=== PATIENT | male | born 1950 | race Caucasian/White ===

== ENCOUNTER → 2018-04-08 08:33 | Outpatient (CLI) | payer MEDICARE, OTHER, SELFPAY ==
[2018-04-08 09:27] LABS: Add Manual Diff / Slide Review YES; Hematocrit 31.2 % (41-53); Hemoglobin 10.3 g/dL (13.5-17.5); Mean Corpuscular HGB Conc 33.1 % (30-36); Mean Corpuscular Hemoglobin 27.4 PG (26-34); Mean Corpuscular Volume 82.6 fL (80-100); Platelet Count 122 X10^3/uL (150-400); Red Blood Cell Count 3.77 X10^6/uL (4.5-5.9); Red Cell Distribution Width 18.9 % (11.6-14.8); White Blood Cell Count 20.3 X10^3/uL (4.5-11.0)
[2018-04-08 09:47] LABS: Neutrophils Absolute Manual 14007 /uL (3000-5900); Total Cells Counted 100
[2018-04-08 09:48] LABS: Anisocytosis 2+; Tear Drop Cells 1+
== END ==
PROVIDERS: Family Provider Family Medicine; PCP Family Medicine; Visit Provider Internal Medicine Hematology & Oncology
DX: D47.1 Chronic myeloproliferative disease (principal)
CPT/HCPCS: 36415; 85025

== ENCOUNTER → 2018-04-23 08:28 | Outpatient (CLI) | payer MEDICARE, OTHER, SELFPAY ==
[2018-04-23 10:01] LABS: Add Manual Diff / Slide Review YES; Hematocrit 33.9 % (41-53); Hemoglobin 11.4 g/dL (13.5-17.5); Mean Corpuscular HGB Conc 33.6 % (30-36); Mean Corpuscular Hemoglobin 27.4 PG (26-34); Mean Corpuscular Volume 81.7 fL (80-100); Platelet Count 130 X10^3/uL (150-400); Red Blood Cell Count 4.15 X10^6/uL (4.5-5.9); Red Cell Distribution Width 19.8 % (11.6-14.8); White Blood Cell Count 20.5 X10^3/uL (4.5-11.0)
[2018-04-23 13:03] LABS: Neutrophils Absolute Manual 13325 /uL (3000-5900); Total Cells Counted 100
[2018-04-23 13:05] LABS: Anisocytosis 2+
[2018-04-23 13:06] LABS: Tear Drop Cells 1+
== END ==
PROVIDERS: PCP Family Medicine; Visit Provider Internal Medicine Hematology & Oncology
DX: D72.829 Elevated white blood cell count, unspecified (principal)
CPT/HCPCS: 36415; 85025

== ENCOUNTER → 2018-05-20 12:29 | Outpatient (CLI) | payer MEDICARE, OTHER, SELFPAY ==
--- NOTE | 2018-05-20 12:31 | DI.US.S_ITS ---
PROCEDURE: US ABDOMEN LIMITED INDICATIONS: MYELOPROLIFERATIVE DISEASE TECHNIQUE: Real-time focused scanning was performed of the abdomen, with image documentation. COMPARISON: [facility], US, ABDOMEN LIMITED, 12/03/2017, 9:45. FINDINGS: Spleen is enlarged measuring 18.4 cm in length which has increased in size compared to prior examination. Volume is 1968 cc IMPRESSION: Increasing splenomegaly. Dictated by: Tobias ELIAS Interpreted: Osbaldo Leon MD on 05/20/2018 at 16:06 Approved by: Osbaldo Leon M.D. on 05/20/2018 at 17:01
== END ==
PROVIDERS: Family Provider Family Medicine; PCP Family Medicine; Visit Provider Internal Medicine Hematology & Oncology
DX: R16.1 Splenomegaly, not elsewhere classified (principal)
CPT/HCPCS: 76705

== ENCOUNTER → 2018-06-04 08:28 | Outpatient (CLI) | payer MEDICARE, OTHER, SELFPAY ==
[2018-06-04 09:04] LABS: Hematocrit 33.9 % (41-53); Hemoglobin 11.3 g/dL (13.5-17.5); Mean Corpuscular HGB Conc 33.4 % (30-36); Mean Corpuscular Hemoglobin 27.8 PG (26-34); Mean Corpuscular Volume 83.3 fL (80-100); Platelet Count 91 X10^3/uL (150-400); Red Blood Cell Count 4.08 X10^6/uL (4.5-5.9); Red Cell Distribution Width 20.3 % (11.6-14.8); White Blood Cell Count 18.2 X10^3/uL (4.5-11.0)
[2018-06-04 09:07] LABS: Add Manual Diff / Slide Review YES
[2018-06-04 09:29] LABS: Alanine Aminotransferase 27 IU/L (21-72); Albumin 4.5 g/dL (3.5-5.0); Albumin Globulin Ratio 1.3 (1.0-2.8); Alkaline Phosphatase 54 U/L (38-126); Aspartate Aminotransferase 32 IU/L (17-59); BUN Creatinine Ratio 11.9 (6-22); Bilirubin Total 0.7 mg/dL (0.2-1.3); Blood Urea Nitrogen 19 mg/dL (9-20); Calcium 9.6 mg/dL (8.4-10.2); Carbon Dioxide 28 mmol/L (22-32); Chloride 101 mmol/L (98-107); Estimated Glomerular Filt Rate 43.2 mL/min (>60); Globulin 3.4 g/dL (1.7-4.1); Glucose 85 mg/dL (80-110); HEMOLYSIS < 15 (0-50); Lactate Dehydrogenase 1203 U/L (313-618); Potassium 4.4 mmol/L (3.4-5.1); Sodium 141 mmol/L (137-145); Total Protein 7.9 g/dL (6.3-8.2)
[2018-06-04 09:43] LABS: Neutrophils Absolute Manual 12558 /uL (3000-5900); Total Cells Counted 100
[2018-06-04 09:45] LABS: Anisocytosis 2+; Tear Drop Cells 1+
== END ==
PROVIDERS: Family Provider Family Medicine; PCP Family Medicine; Visit Provider Internal Medicine Hematology & Oncology
DX: D47.1 Chronic myeloproliferative disease (principal); R79.89 Other specified abnormal findings of blood chemistry
CPT/HCPCS: 36415; 80053; 83615; 85025

== ENCOUNTER → 2018-07-25 08:35 | Outpatient (CLI) | payer MEDICARE, OTHER, SELFPAY ==
[2018-07-25 09:22] LABS: Add Manual Diff / Slide Review YES; Hematocrit 32.9 % (41-53); Mean Corpuscular HGB Conc 33.4 % (30-36); Mean Corpuscular Hemoglobin 28.3 PG (26-34); Mean Corpuscular Volume 84.7 fL (80-100); Platelet Count 84 X10^3/uL (150-400); Red Blood Cell Count 3.89 X10^6/uL (4.5-5.9); Red Cell Distribution Width 19.3 % (11.6-14.8); White Blood Cell Count 22.6 X10^3/uL (4.5-11.0)
[2018-07-25 09:31] LABS: Alanine Aminotransferase 28 IU/L (21-72); Albumin 4.3 g/dL (3.5-5.0); Albumin Globulin Ratio 1.2 (1.0-2.8); Alkaline Phosphatase 58 U/L (38-126); Aspartate Aminotransferase 31 IU/L (17-59); BUN Creatinine Ratio 13.1 (6-22); Bilirubin Total 0.8 mg/dL (0.2-1.3); Blood Urea Nitrogen 21 mg/dL (9-20); Calcium 9.1 mg/dL (8.4-10.2); Carbon Dioxide 28 mmol/L (22-32); Chloride 104 mmol/L (98-107); Estimated Glomerular Filt Rate 43.2 mL/min (>60); Globulin 3.6 g/dL (1.7-4.1); Glucose 108 mg/dL (80-110); HEMOLYSIS < 15 (0-50); Potassium 4.4 mmol/L (3.4-5.1); Sodium 143 mmol/L (137-145); Total Protein 7.9 g/dL (6.3-8.2)
[2018-07-25 12:29] LABS: Neutrophils Absolute Manual 15142 /uL (3000-5900); Total Cells Counted 100
[2018-07-25 12:32] LABS: Anisocytosis 1+
--- NOTE | 2018-07-25 13:43 | PC.NURSE ---
Labs reviewed, platelets down from over a month 91 in May and 84 today. Creatinine stable @ 1.60
== END ==
PROVIDERS: Family Provider Family Medicine; PCP Family Medicine; Visit Provider Internal Medicine Hematology & Oncology
DX: D47.1 Chronic myeloproliferative disease (principal); R79.89 Other specified abnormal findings of blood chemistry
CPT/HCPCS: 36415; 80053; 85025

== ENCOUNTER → 2018-08-19 08:27 | Outpatient (CLI) | payer MEDICARE, OTHER, SELFPAY ==
[2018-08-19 09:12] LABS: Hematocrit 32.3 % (41-53); Hemoglobin 10.9 g/dL (13.5-17.5); Mean Corpuscular HGB Conc 33.6 % (30-36); Mean Corpuscular Hemoglobin 28.3 PG (26-34); Mean Corpuscular Volume 84.3 fL (80-100); Platelet Count 68 X10^3/uL (150-400); Red Blood Cell Count 3.83 X10^6/uL (4.5-5.9); Red Cell Distribution Width 19.6 % (11.6-14.8); White Blood Cell Count 18.6 X10^3/uL (4.5-11.0)
[2018-08-19 09:14] LABS: Add Manual Diff / Slide Review YES
[2018-08-19 09:44] LABS: Alanine Aminotransferase 38 IU/L (21-72); Albumin 4.5 g/dL (3.5-5.0); Albumin Globulin Ratio 1.5 (1.0-2.8); Alkaline Phosphatase 49 U/L (38-126); Aspartate Aminotransferase 36 IU/L (17-59); Bilirubin Total 0.8 mg/dL (0.2-1.3); Blood Urea Nitrogen 21 mg/dL (9-20); Calcium 9.3 mg/dL (8.4-10.2); Carbon Dioxide 29 mmol/L (22-32); Chloride 102 mmol/L (98-107); Estimated Glomerular Filt Rate 46.4 mL/min (>60); Globulin 3.1 g/dL (1.7-4.1); Glucose 76 mg/dL (80-110); HEMOLYSIS < 15 (0-50); Potassium 4.7 mmol/L (3.4-5.1); Sodium 141 mmol/L (137-145); Total Protein 7.6 g/dL (6.3-8.2)
[2018-08-19 10:20] LABS: Anisocytosis 1+; Neutrophils Absolute Manual 10974 /uL (3000-5900); Polychromasia 1+; Total Cells Counted 100
== END ==
PROVIDERS: Family Provider Family Medicine; PCP Family Medicine; Visit Provider Internal Medicine Hematology & Oncology
DX: D47.1 Chronic myeloproliferative disease (principal); R79.89 Other specified abnormal findings of blood chemistry
CPT/HCPCS: 36415; 80053; 85025

== ENCOUNTER → 2018-09-12 08:32 | Outpatient (CLI) | payer MEDICARE, OTHER, SELFPAY ==
[2018-09-12 10:20] LABS: Hematocrit 34.6 % (41-53); Hemoglobin 11.4 g/dL (13.5-17.5); Mean Corpuscular Hemoglobin 28.5 PG (26-34); Mean Corpuscular Volume 86.3 fL (80-100); Platelet Count 76 X10^3/uL (150-400); Red Blood Cell Count 4.01 X10^6/uL (4.5-5.9); Red Cell Distribution Width 19.5 % (11.6-14.8); White Blood Cell Count 23.5 X10^3/uL (4.5-11.0)
[2018-09-12 10:22] LABS: Add Manual Diff / Slide Review YES
[2018-09-12 10:28] LABS: Alanine Aminotransferase 35 IU/L (21-72); Albumin 4.7 g/dL (3.5-5.0); Albumin Globulin Ratio 1.3 (1.0-2.8); Alkaline Phosphatase 63 U/L (38-126); Aspartate Aminotransferase 38 IU/L (17-59); BUN Creatinine Ratio 11.3 (6-22); Bilirubin Total 0.7 mg/dL (0.2-1.3); Blood Urea Nitrogen 17 mg/dL (9-20); Calcium 9.4 mg/dL (8.4-10.2); Carbon Dioxide 29 mmol/L (22-32); Chloride 101 mmol/L (98-107); Estimated Glomerular Filt Rate 46.4 mL/min (>60); Globulin 3.6 g/dL (1.7-4.1); Glucose 111 mg/dL (80-110); HEMOLYSIS < 15 (0-50); Lactate Dehydrogenase 1430 U/L (313-618); Potassium 4.3 mmol/L (3.4-5.1); Sodium 143 mmol/L (137-145); Total Protein 8.3 g/dL (6.3-8.2)
[2018-09-12 10:56] LABS: Neutrophils Absolute Manual 16215 /uL (3000-5900); Total Cells Counted 100
[2018-09-12 10:57] LABS: RBC Morphology Normal Morphology
== END ==
PROVIDERS: Family Provider Family Medicine; PCP Family Medicine; Visit Provider Internal Medicine Hematology & Oncology
DX: D47.1 Chronic myeloproliferative disease (principal)
CPT/HCPCS: 80053; 83615; 85025

== ENCOUNTER → 2018-10-07 10:48 | Outpatient (CLI) | payer MEDICARE, OTHER, SELFPAY ==
--- NOTE | 2018-10-07 10:50 | DI.US.S_ITS ---
PROCEDURE: US ABDOMEN LIMITED INDICATIONS: Chronic myeloproliferative disease TECHNIQUE: Real-time focused scanning was performed of the abdomen, with image documentation. COMPARISON: [facility], [place], US ABDOMEN LIMITED, 05/20/2018, 13:12. FINDINGS: Limited sonographic images demonstrate the spleen to measure 19.9 cm (2012 cc) This is compared to 18.4 cm (volume 1968 cc) on 05/20/18. No focal lesions. IMPRESSION: Persistent splenomegaly, minimally increased compared to prior exam. Dictated by: Ghislaine Montoya M.D. on 10/07/2018 at 12:05 Approved by: Ghislaine Montoya M.D. on 10/07/2018 at 12:08
[2018-10-07 11:55] LABS: Add Manual Diff / Slide Review YES; Hematocrit 33.1 % (41-53); Hemoglobin 10.7 g/dL (13.5-17.5); Mean Corpuscular HGB Conc 32.5 % (30-36); Mean Corpuscular Hemoglobin 27.6 PG (26-34); Mean Corpuscular Volume 85.1 fL (80-100); Platelet Count 87 X10^3/uL (150-400); Red Blood Cell Count 3.88 X10^6/uL (4.5-5.9); Red Cell Distribution Width 19.2 % (11.6-14.8); White Blood Cell Count 25.8 X10^3/uL (4.5-11.0)
[2018-10-07 12:16] LABS: Neutrophils Absolute Manual 13158 /uL (3000-5900); Total Cells Counted 100
[2018-10-07 12:17] LABS: Anisocytosis 2+
[2018-10-07 12:42] LABS: Cholesterol 153 mg/dL (140-199); HDL Cholesterol 37 mg/dL (40-60); LDL Cholesterol Calculated 78 mg/dL (<100); Triglycerides 189 mg/dL (35-150)
[2018-10-07 13:05] LABS: Thyroid Stimulating Hormone 9.79 uIU/mL (0.47-4.68)
[2018-10-07 19:19] LABS: Prostate Specific Antigen Scrn 0.399 ng/mL (0.1-4.0)
[2018-10-07 19:39] LABS: Alanine Aminotransferase 30 IU/L (21-72); Albumin 4.6 g/dL (3.5-5.0); Albumin Globulin Ratio 1.3 (1.0-2.8); Alkaline Phosphatase 63 U/L (38-126); Aspartate Aminotransferase 36 IU/L (17-59); BUN Creatinine Ratio 14.7 (6-22); Bilirubin Total 0.8 mg/dL (0.2-1.3); Blood Urea Nitrogen 22 mg/dL (9-20); Calcium 9.5 mg/dL (8.4-10.2); Carbon Dioxide 25 mmol/L (22-32); Chloride 102 mmol/L (98-107); Estimated Glomerular Filt Rate 46.4 mL/min (>60); Globulin 3.5 g/dL (1.7-4.1); Glucose 96 mg/dL (80-110); HEMOLYSIS < 15 (0-50); Lactate Dehydrogenase 1825 U/L (313-618); Potassium 5.1 mmol/L (3.4-5.1); Sodium 142 mmol/L (137-145); Total Protein 8.1 g/dL (6.3-8.2)
== END ==
PROVIDERS: Family Provider Family Medicine; PCP Family Medicine; Visit Provider Internal Medicine Hematology & Oncology
DX: D47.1 Chronic myeloproliferative disease (principal); E03.9 Hypothyroidism, unspecified; R16.1 Splenomegaly, not elsewhere classified; Z12.5 Encounter for screening for malignant neoplasm of prostate
CPT/HCPCS: 36415; 76705; 80053; 80061; 83615; 84443; 85025; G0103

== ENCOUNTER → 2018-10-28 09:43 | Outpatient (CLI) | payer MEDICARE, OTHER, SELFPAY ==
[2018-10-28 10:51] LABS: Add Manual Diff / Slide Review YES; Hematocrit 28.1 % (41-53); Hemoglobin 9.6 g/dL (13.5-17.5); Mean Corpuscular HGB Conc 34.2 % (30-36); Mean Corpuscular Hemoglobin 28.6 PG (26-34); Mean Corpuscular Volume 83.8 fL (80-100); Platelet Count 75 X10^3/uL (150-400); Red Blood Cell Count 3.36 X10^6/uL (4.5-5.9); Red Cell Distribution Width 19.6 % (11.6-14.8); White Blood Cell Count 21.6 X10^3/uL (4.5-11.0)
[2018-10-28 11:03] LABS: Alanine Aminotransferase 26 IU/L (21-72); Albumin 4.5 g/dL (3.5-5.0); Albumin Globulin Ratio 1.4 (1.0-2.8); Alkaline Phosphatase 63 U/L (38-126); Aspartate Aminotransferase 28 IU/L (17-59); BUN Creatinine Ratio 16.9 (6-22); Bilirubin Total 0.7 mg/dL (0.2-1.3); Blood Urea Nitrogen 27 mg/dL (9-20); Carbon Dioxide 26 mmol/L (22-32); Chloride 100 mmol/L (98-107); Estimated Glomerular Filt Rate 43.1 mL/min (>60); Globulin 3.3 g/dL (1.7-4.1); Glucose 98 mg/dL (80-110); HEMOLYSIS < 15 (0-50); Lactate Dehydrogenase 1330 U/L (313-618); Potassium 5.1 mmol/L (3.4-5.1); Sodium 139 mmol/L (137-145); Total Protein 7.8 g/dL (6.3-8.2)
[2018-10-28 11:23] LABS: Anisocytosis 2+; Neutrophils Absolute Manual 15336 /uL (3000-5900); Total Cells Counted 100
== END ==
PROVIDERS: Internal Medicine Hematology & Oncology; Family Provider Family Medicine; PCP Family Medicine; Visit Provider Internal Medicine Hematology & Oncology
DX: D47.1 Chronic myeloproliferative disease (principal)
CPT/HCPCS: 36415; 80053; 83615; 85025

== ENCOUNTER → 2018-11-21 10:42 | Outpatient (CLI) | payer MEDICARE, OTHER, SELFPAY ==
[2018-11-21 12:08] LABS: Add Manual Diff / Slide Review YES; Hematocrit 31.8 % (41-53); Hemoglobin 10.2 g/dL (13.5-17.5); Mean Corpuscular HGB Conc 32.2 % (30-36); Mean Corpuscular Hemoglobin 27.7 PG (26-34); Mean Corpuscular Volume 86.1 fL (80-100); Platelet Count 88 X10^3/uL (150-400); Red Blood Cell Count 3.69 X10^6/uL (4.5-5.9); Red Cell Distribution Width 19.2 % (11.6-14.8); White Blood Cell Count 17.2 X10^3/uL (4.5-11.0)
[2018-11-21 12:18] LABS: Alanine Aminotransferase 22 IU/L (21-72); Albumin 4.3 g/dL (3.5-5.0); Albumin Globulin Ratio 1.2 (1.0-2.8); Alkaline Phosphatase 50 U/L (38-126); Aspartate Aminotransferase 23 IU/L (17-59); BUN Creatinine Ratio 13.3 (6-22); Bilirubin Total 0.5 mg/dL (0.2-1.3); Blood Urea Nitrogen 20 mg/dL (9-20); Calcium 9.3 mg/dL (8.4-10.2); Carbon Dioxide 26 mmol/L (22-32); Chloride 104 mmol/L (98-107); Estimated Glomerular Filt Rate 46.4 mL/min (>60); Globulin 3.6 g/dL (1.7-4.1); Glucose 89 mg/dL (80-110); HEMOLYSIS < 15 (0-50); Lactate Dehydrogenase 934 U/L (313-618); Potassium 4.9 mmol/L (3.4-5.1); Sodium 139 mmol/L (137-145); Total Protein 7.9 g/dL (6.3-8.2)
[2018-11-21 12:26] LABS: Neutrophils Absolute Manual 13072 /uL (3000-5900); Total Cells Counted 100
[2018-11-21 12:27] LABS: Anisocytosis 2+
[2018-11-21 12:28] LABS: Stomatocytes 1+
== END ==
PROVIDERS: Family Provider Family Medicine; PCP Family Medicine; Visit Provider Internal Medicine Hematology & Oncology
DX: E03.9 Hypothyroidism, unspecified (principal); D47.1 Chronic myeloproliferative disease
CPT/HCPCS: 36415; 80053; 83615; 84443; 85025

== ENCOUNTER → 2018-11-26 08:32 | Outpatient (CLI) | payer MEDICARE, OTHER, SELFPAY | PROVIDERS: Family Provider Family Medicine; PCP Family Medicine; Visit Provider Internal Medicine Hematology & Oncology | DX: D47.1 Chronic myeloproliferative disease (principal) | CPT/HCPCS: 36415; 82232 ==

== ENCOUNTER → 2018-12-24 09:02 | Outpatient (CLI) | payer MEDICARE, OTHER, SELFPAY ==
[2018-12-24 10:39] LABS: Hematocrit 34.1 % (41-53); Hemoglobin 11.1 g/dL (13.5-17.5); Mean Corpuscular HGB Conc 32.7 % (30-36); Mean Corpuscular Hemoglobin 27.6 PG (26-34); Mean Corpuscular Volume 84.5 fL (80-100); Platelet Count 68 X10^3/uL (150-400); Red Blood Cell Count 4.03 X10^6/uL (4.5-5.9); Red Cell Distribution Width 19.4 % (11.6-14.8); White Blood Cell Count 19.7 X10^3/uL (4.5-11.0)
[2018-12-24 10:45] LABS: Add Manual Diff / Slide Review YES
[2018-12-24 11:09] LABS: Total Cells Counted 100
[2018-12-24 11:13] LABS: Alanine Aminotransferase 24 IU/L (21-72); Albumin 4.8 g/dL (3.5-5.0); Albumin Globulin Ratio 1.3 (1.0-2.8); Alkaline Phosphatase 50 U/L (38-126); Aspartate Aminotransferase 31 IU/L (17-59); BUN Creatinine Ratio 13.8 (6-22); Bilirubin Total 0.8 mg/dL (0.2-1.3); Blood Urea Nitrogen 22 mg/dL (9-20); Calcium 9.5 mg/dL (8.4-10.2); Carbon Dioxide 27 mmol/L (22-32); Chloride 100 mmol/L (98-107); Estimated Glomerular Filt Rate 43.1 mL/min (>60); Globulin 3.8 g/dL (1.7-4.1); Glucose 77 mg/dL (80-110); HEMOLYSIS < 15 (0-50); Lactate Dehydrogenase 1467 U/L (313-618); Potassium 4.7 mmol/L (3.4-5.1); Sodium 138 mmol/L (137-145); Total Protein 8.6 g/dL (6.3-8.2)
[2018-12-24 11:14] LABS: Anisocytosis 1+; Poikilocytosis 1+
[2018-12-24 12:06] LABS: Neutrophils Absolute Manual 7683 /uL (3000-5900)
[2018-12-25 12:05] LABS: Beta-2-Microglobulin 4.74 mg/L (< 2.52)
== END ==
PROVIDERS: PCP Family Medicine; Visit Provider Internal Medicine Hematology & Oncology
DX: D47.1 Chronic myeloproliferative disease (principal)
CPT/HCPCS: 36415; 80053; 82232; 83615; 85025

== ENCOUNTER → 2019-01-07 07:57 | Outpatient (CLI) | payer MEDICARE, OTHER, SELFPAY ==
[2019-01-07 08:54] LABS: Hematocrit 33.8 % (41-53); Mean Corpuscular HGB Conc 32.5 % (30-36); Mean Corpuscular Hemoglobin 27.6 PG (26-34); Mean Corpuscular Volume 84.9 fL (80-100); Platelet Count 61 X10^3/uL (150-400); Red Blood Cell Count 3.99 X10^6/uL (4.5-5.9); Red Cell Distribution Width 18.6 % (11.6-14.8); White Blood Cell Count 19.9 X10^3/uL (4.5-11.0)
[2019-01-07 08:57] LABS: Add Manual Diff / Slide Review YES
[2019-01-07 08:58] LABS: BUN Creatinine Ratio 15.3 (6-22); Blood Urea Nitrogen 23 mg/dL (9-20); Calcium 9.3 mg/dL (8.4-10.2); Carbon Dioxide 27 mmol/L (22-32); Chloride 101 mmol/L (98-107); Estimated Glomerular Filt Rate 46.4 mL/min (>60); Glucose 104 mg/dL (80-110); HEMOLYSIS < 15 (0-50); Potassium 4.3 mmol/L (3.4-5.1); Sodium 139 mmol/L (137-145)
[2019-01-07 09:20] LABS: Neutrophils Absolute Manual 12139 /uL (3000-5900); Total Cells Counted 100
[2019-01-07 09:22] LABS: Anisocytosis 1+
[2019-01-07 09:23] LABS: Poikilocytosis 1+
== END ==
PROVIDERS: Family Provider Family Medicine; PCP Family Medicine; Visit Provider Internal Medicine Hematology & Oncology
DX: D47.1 Chronic myeloproliferative disease (principal)
CPT/HCPCS: 36415; 80048; 85025

== ENCOUNTER → 2019-01-14 08:26 | Outpatient (CLI) | payer MEDICARE, OTHER, SELFPAY ==
[2019-01-14 09:21] LABS: Hematocrit 35.4 % (41-53); Hemoglobin 11.6 g/dL (13.5-17.5); Mean Corpuscular HGB Conc 32.7 % (30-36); Mean Corpuscular Hemoglobin 27.6 PG (26-34); Mean Corpuscular Volume 84.5 fL (80-100); Platelet Count 65 X10^3/uL (150-400); Red Blood Cell Count 4.19 X10^6/uL (4.5-5.9); Red Cell Distribution Width 19.1 % (11.6-14.8); White Blood Cell Count 17.9 X10^3/uL (4.5-11.0)
[2019-01-14 09:27] LABS: Add Manual Diff / Slide Review YES
[2019-01-14 09:59] LABS: Alanine Aminotransferase 28 IU/L (21-72); Albumin 4.8 g/dL (3.5-5.0); Albumin Globulin Ratio 1.3 (1.0-2.8); Alkaline Phosphatase 54 U/L (38-126); Aspartate Aminotransferase 26 IU/L (17-59); BUN Creatinine Ratio 13.8 (6-22); Bilirubin Total 0.7 mg/dL (0.2-1.3); Blood Urea Nitrogen 22 mg/dL (9-20); Calcium 9.5 mg/dL (8.4-10.2); Carbon Dioxide 27 mmol/L (22-32); Chloride 100 mmol/L (98-107); Estimated Glomerular Filt Rate 43.1 mL/min (>60); Globulin 3.7 g/dL (1.7-4.1); Glucose 111 mg/dL (80-110); HEMOLYSIS < 15 (0-50); Lactate Dehydrogenase 1320 U/L (313-618); Potassium 4.4 mmol/L (3.4-5.1); Sodium 139 mmol/L (137-145); Total Protein 8.5 g/dL (6.3-8.2)
[2019-01-14 10:09] LABS: Anisocytosis 2+; Neutrophils Absolute Manual 7339 /uL (3000-5900); Total Cells Counted 100
[2019-01-14 10:10] LABS: Polychromasia 1+
[2019-01-14 10:11] LABS: Tear Drop Cells 1+
[2019-01-15 13:40] LABS: Beta-2-Microglobulin 4.39 mg/L (< 2.52)
== END ==
PROVIDERS: Family Provider Family Medicine; PCP Family Medicine; Visit Provider Internal Medicine Hematology & Oncology
DX: D47.1 Chronic myeloproliferative disease (principal)
CPT/HCPCS: 36415; 80053; 82232; 83615; 85025

== ENCOUNTER → 2019-01-28 08:24 | Outpatient (CLI) | payer MEDICARE, OTHER, SELFPAY ==
[2019-01-28 09:47] LABS: Add Manual Diff / Slide Review YES; Hematocrit 34.9 % (41-53); Hemoglobin 11.6 g/dL (13.5-17.5); Mean Corpuscular HGB Conc 33.1 % (30-36); Mean Corpuscular Hemoglobin 27.9 PG (26-34); Mean Corpuscular Volume 84.3 fL (80-100); Platelet Count 51 X10^3/uL (150-400); Red Blood Cell Count 4.14 X10^6/uL (4.5-5.9); Red Cell Distribution Width 19.5 % (11.6-14.8); White Blood Cell Count 20.2 X10^3/uL (4.5-11.0)
[2019-01-28 10:03] LABS: Alanine Aminotransferase 24 IU/L (21-72); Albumin 4.6 g/dL (3.5-5.0); Albumin Globulin Ratio 1.2 (1.0-2.8); Alkaline Phosphatase 56 U/L (38-126); Aspartate Aminotransferase 29 IU/L (17-59); BUN Creatinine Ratio 12.8 (6-22); Bilirubin Total 0.6 mg/dL (0.2-1.3); Blood Urea Nitrogen 23 mg/dL (9-20); Calcium 9.3 mg/dL (8.4-10.2); Carbon Dioxide 25 mmol/L (22-32); Chloride 101 mmol/L (98-107); Estimated Glomerular Filt Rate 37.6 mL/min (>60); Globulin 3.7 g/dL (1.7-4.1); Glucose 117 mg/dL (80-110); HEMOLYSIS < 15 (0-50); Potassium 4.5 mmol/L (3.4-5.1); Sodium 138 mmol/L (137-145); Total Protein 8.3 g/dL (6.3-8.2)
[2019-01-28 10:06] LABS: Uric Acid 6.7 mg/dL (3.5-8.5)
[2019-01-28 10:16] LABS: Anisocytosis 1+; Neutrophils Absolute Manual 7878 /uL (3000-5900); Total Cells Counted 100
== END ==
PROVIDERS: Family Provider Family Medicine; PCP Family Medicine; Visit Provider Internal Medicine Hematology & Oncology
DX: D47.1 Chronic myeloproliferative disease (principal)
CPT/HCPCS: 80053; 84550; 85025

== ENCOUNTER → 2019-02-14 07:24 | Outpatient (CLI) | payer MEDICARE, OTHER, SELFPAY ==
--- NOTE | 2019-02-14 07:26 | DI.US.S_ITS ---
PROCEDURE: US ABDOMEN LIMITED INDICATIONS: PRIMARY MYELOFIBROSIS TECHNIQUE: Real-time focused scanning was performed of the abdomen, with image documentation. COMPARISON: [facility], , US ABDOMEN LIMITED, 10/07/2018, 11:02. FINDINGS: Liver measures 17.7 cm in length. Focal 1.2 cm calcification is noted in left lobe of liver with true acoustic shadowing new since previous study. Spleen measures 20.5 cm in length compared to 19.9 cm on previous study. No discrete splenic lesion. IMPRESSION: #1. 1.2 cm calcification involving left lobe of liver, not seen on previous study and may represent a calcified granuloma. #2. Splenomegaly slightly increased in size compared to previous study. No discrete splenic lesion. Dictated by: Arsenio Hawthorne M.D. on 02/14/2019 at 9:30 Approved by: Arsenio Hawthorne M.D. on 02/14/2019 at 9:32
[2019-02-14 08:49] LABS: Hematocrit 32.3 % (41-53); Hemoglobin 10.7 g/dL (13.5-17.5); Mean Corpuscular HGB Conc 33.3 % (30-36); Mean Corpuscular Hemoglobin 27.7 PG (26-34); Mean Corpuscular Volume 83.4 fL (80-100); Platelet Count 60 X10^3/uL (150-400); Red Blood Cell Count 3.87 X10^6/uL (4.5-5.9); Red Cell Distribution Width 19.6 % (11.6-14.8); White Blood Cell Count 16.3 X10^3/uL (4.5-11.0)
[2019-02-14 08:52] LABS: Add Manual Diff / Slide Review YES
[2019-02-14 09:09] LABS: Alanine Aminotransferase 19 IU/L (21-72); Albumin 4.5 g/dL (3.5-5.0); Albumin Globulin Ratio 1.2 (1.0-2.8); Alkaline Phosphatase 54 U/L (38-126); Aspartate Aminotransferase 30 IU/L (17-59); BUN Creatinine Ratio 12.5 (6-22); Bilirubin Total 0.6 mg/dL (0.2-1.3); Blood Urea Nitrogen 20 mg/dL (9-20); Calcium 9.3 mg/dL (8.4-10.2); Carbon Dioxide 27 mmol/L (22-32); Chloride 101 mmol/L (98-107); Estimated Glomerular Filt Rate 43.1 mL/min (>60); Globulin 3.7 g/dL (1.7-4.1); Glucose 90 mg/dL (80-110); HEMOLYSIS < 15 (0-50); Potassium 4.2 mmol/L (3.4-5.1); Sodium 139 mmol/L (137-145); Total Protein 8.2 g/dL (6.3-8.2)
[2019-02-14 09:10] LABS: Uric Acid 6.7 mg/dL (3.5-8.5)
[2019-02-14 09:28] LABS: Neutrophils Absolute Manual 7661 /uL (3000-5900); Total Cells Counted 100
[2019-02-14 09:29] LABS: Smudge Cells 1+
[2019-02-14 09:31] LABS: Anisocytosis 2+
== END ==
PROVIDERS: Family Provider Family Medicine; PCP Family Medicine; Visit Provider Internal Medicine Hematology & Oncology
DX: D47.1 Chronic myeloproliferative disease (principal); R16.1 Splenomegaly, not elsewhere classified; K76.89 Other specified diseases of liver
CPT/HCPCS: 36415; 76705; 80053; 84550; 85025

== ENCOUNTER → 2019-05-27 08:33 | Outpatient (CLI) | payer MEDICARE, OTHER, SELFPAY ==
--- NOTE | 2019-05-27 08:34 | DI.US.S_ITS ---
PROCEDURE: US ABDOMEN LIMITED INDICATIONS: MYELOFIBROSIS, SPLENOMEGALY TECHNIQUE: Real-time scanning was performed of the abdominal and retroperitoneal organs, with image documentation. COMPARISON: [facility], , US ABDOMEN LIMITED, 02/14/2019, 7:55. FINDINGS: Liver: Liver is normal in size and measures 17.9 cm in length. 9 x 8 x 8 mm calcification is seen in left lobe of liver previously measures 1.2 x 1 x 0.6 cm in size. No new hepatic lesion is seen. Spleen: Spleen is enlarged, now measures 20.9 x 20.1 x 7.2 cm in size with volume of 1584 mL. This was previously measured 1823 mm. IMPRESSION: 1. Interval slight increase in size of patient's known left hepatic lobe calcification. No tara hepatomegaly. 2. Splenomegaly, slightly decreased in size compared to previous study. No discrete splenic lesion. Dictated by: Arsenio Hawthorne M.D. on 05/27/2019 at 11:02 Approved by: Arsenio Hawthorne M.D. on 05/27/2019 at 11:04
[2019-05-27 09:30] LABS: Hematocrit 33.1 % (41-53); Hemoglobin 11.1 g/dL (13.5-17.5); Mean Corpuscular HGB Conc 33.6 % (30-36); Mean Corpuscular Hemoglobin 28.2 PG (26-34); Mean Corpuscular Volume 84.1 fL (80-100); Platelet Count 46 X10^3/uL (150-400); Red Blood Cell Count 3.93 X10^6/uL (4.5-5.9); Red Cell Distribution Width 19.9 % (11.6-14.8); White Blood Cell Count 20.1 X10^3/uL (4.5-11.0)
[2019-05-27 09:36] LABS: Alanine Aminotransferase 16 IU/L (21-72); Albumin 4.6 g/dL (3.5-5.0); Albumin Globulin Ratio 1.3 (1.0-2.8); Alkaline Phosphatase 53 U/L (38-126); Aspartate Aminotransferase 31 IU/L (17-59); BUN Creatinine Ratio 14.4 (6-22); Bilirubin Total 0.8 mg/dL (0.2-1.3); Blood Urea Nitrogen 23 mg/dL (9-20); Calcium 9.5 mg/dL (8.4-10.2); Carbon Dioxide 26 mmol/L (22-32); Chloride 102 mmol/L (98-107); Estimated Glomerular Filt Rate 43.1 mL/min (>60); Globulin 3.6 g/dL (1.7-4.1); Glucose 96 mg/dL (80-110); HEMOLYSIS < 15 (0-50); Potassium 4.2 mmol/L (3.4-5.1); Sodium 140 mmol/L (137-145); Total Protein 8.2 g/dL (6.3-8.2)
[2019-05-27 10:08] LABS: Add Manual Diff / Slide Review YES
[2019-05-27 11:23] LABS: Neutrophils Absolute Manual 8442 /uL (3000-5900); Total Cells Counted 100
[2019-05-27 11:24] LABS: Anisocytosis 2+
== END ==
PROVIDERS: Family Provider Family Medicine; PCP Family Medicine; Visit Provider Internal Medicine Hematology & Oncology
DX: D47.1 Chronic myeloproliferative disease (principal); R16.1 Splenomegaly, not elsewhere classified; K76.9 Liver disease, unspecified
CPT/HCPCS: 36415; 76705; 80053; 85025

== ENCOUNTER 2019-06-24 16:25 | Emergency (ER) | payer MEDICARE, OTHER, SELFPAY ==
[2019-06-24 16:33] VITALS: BP 140/67; PULSE 78; RESP 14; TEMP 36.8; O2SAT 97
--- NOTE | 2019-06-24 17:03 | DI.RAD.S_ITS ---
PROCEDURE: XR CHEST 2V INDICATIONS: fever of unknown origin TECHNIQUE: 2 views of the chest were acquired. COMPARISON: [facility], , CHEST 1 VIEW, 06/09/2015, 7:35. FINDINGS: Surgical changes and devices: None. Lungs and pleura: Lungs are clear. No pleural effusions or pneumothorax. Mediastinum: Mediastinal contours are normal. Heart size is normal. Bones and chest wall: No suspicious bony abnormalities. Soft tissues appear unremarkable. IMPRESSION: Normal chest. Dictated by: Елена Randolph M.D. on 06/24/2019 at 17:39 Approved by: Елена Randolph M.D. on 06/24/2019 at 17:39
[2019-06-24 17:30] LABS: Bacteria Urine None Seen; RBC Urine None Seen (0-5/HPF); WBC Urine None Seen (0-5/HPF)
[2019-06-24 17:38] LABS: INR 1.2 (0.9-1.3); Prothrombin Time 13.7 SECONDS (10.1-12.7)
[2019-06-24 17:39] LABS: Hematocrit 30.8 % (41-53); Hemoglobin 10.2 g/dL (13.5-17.5); Mean Corpuscular HGB Conc 33.2 % (30-36); Mean Corpuscular Hemoglobin 27.7 PG (26-34); Mean Corpuscular Volume 83.2 fL (80-100); Platelet Count 39 X10^3/uL (150-400); Red Cell Distribution Width 18.9 % (11.6-14.8); White Blood Cell Count 12.1 X10^3/uL (4.5-11.0)
[2019-06-24 17:40] LABS: Add Manual Diff / Slide Review YES; PTT Partial Thromboplastin Tim 34 SECONDS (26.4-36.2)
[2019-06-24 17:42] LABS: Culture Indicated Urine Cult Not Indicated; Urine Comments Microscopic Normal
[2019-06-24 17:44] LABS: Alanine Aminotransferase 25 IU/L (21-72); Albumin 4.8 g/dL (3.5-5.0); Albumin Globulin Ratio 1.3 (1.0-2.8); Alkaline Phosphatase 60 U/L (38-126); Aspartate Aminotransferase 36 IU/L (17-59); BUN Creatinine Ratio 14.7 (6-22); Blood Urea Nitrogen 25 mg/dL (9-20); Calcium 9.3 mg/dL (8.4-10.2); Carbon Dioxide 23 mmol/L (22-32); Chloride 100 mmol/L (98-107); Estimated Glomerular Filt Rate 40.2 mL/min (>60); Globulin 3.7 g/dL (1.7-4.1); Glucose 95 mg/dL (80-110); HEMOLYSIS < 15 (0-50); Lactate (Lactic Acid) 0.8 mmol/L (0.7-2.1); Potassium 4.3 mmol/L (3.4-5.1); Sodium 137 mmol/L (137-145); Total Protein 8.5 g/dL (6.3-8.2)
[2019-06-24 17:58] LABS: Procalcitonin 0.22 ng/mL (<0.5)
[2019-06-24 17:59] LABS: Neutrophils Absolute Manual 4719 /uL (3000-5900); Nucleated Red Blood Cells 2 #/Diff; Polychromasia 2+; Total Cells Counted 100
[2019-06-24 18:00] LABS: Platelet Estimate Decreased on smear
[2019-06-24 18:14] VITALS: TEMP 36.8
[2019-06-24 18:16] VITALS: BP 139/74; PULSE 83; RESP 17; O2SAT 100
--- NOTE | 2019-06-24 18:30 | ED.FEVER ---
HPI - Fever <CHRISTIAN Rodriguez - Last Filed: 06/24/19 20:52> General Chief Complaint: Fever Stated Complaint: STATES SENT BY DR JAMIL Time Seen by Provider: 06/24/19 16:30 Source: patient Mode of arrival: ambulatory Limitations: no limitations History of Present Illness HPI Narrative: This is a 68-year-old gentleman, previous smoker, presents to ED after he was instructed to come in to ED by his oncologist/life insurance salesperson, Dr. Jamil, for an evaluation for ongoing fever for 2 weeks. The patient is getting a treatment with Jakafi for the myelofibrosis. Patient reports the max temperature at home was 103 and he felt dizzy and fell down once from this. He had 1 episode of severe chills, mildly increased fatigue and nausea from his baseline. He denies coughing, headache, pain including abdominal, urinary symptoms such as urgency/ frequency/ burning, dyspnea. He also states has known splenomegaly and the last ultrasound was done about a month ago. He reports he is known to have abnormal blood counts including anemia, low platelets. He reports having small a few macular lesions on his right hand and left cheek area. He has been using Tylenol 1000 mg around the clock at home for fever and the last dose was about 2 hours ago. Related Data Home Medications Medication Instructions Recorded Confirmed allopurinol 300 mg PO QPM 06/24/19 06/24/19 colchicine 0.6 mg PO QPM 06/24/19 06/24/19 levothyroxine [Synthroid] 100 mcg PO DAILY 06/24/19 06/24/19 metronidazole [Metrogel] 1 % TOPICAL DIRECTED 06/24/19 06/24/19 ruxolitinib [Jakafi] 20 mg PO BID 06/24/19 06/24/19 Allergies Allergy/AdvReac Type Severity Reaction Status Date / Time ondansetron AdvReac Unknown Verified 06/24/19 17:09 Review of Systems <CHRISTIAN Rodriguez - Last Filed: 06/24/19 20:52> Review of Systems General: See HPI HEENT: Denies sinus pain, ear pain, sore throat, difficulty swallowing, dizziness. Respiratory: Denies dyspnea, cough, wheezing, hemoptysis, sputum. Cardiovascular: Denies chest pain, palpitations, orthopnea, edema. Gastrointestinal: Denies nausea, vomiting, abdominal pain, diarrhea, constipation, melena. : Denies dysuria, frequency, incontinence, hematuria, urinary retention. Musculoskeletal: Denies weakness, joint pain or bony pain. Skin: See HPI Neurologic: Denies weakness, headache, numbness, change in speech, confusion, seizures, incoordination. Psychiatric: No concerning psychosocial issues. 12-point review of systems is negative except for those stated above. PFSH <CHRISTIAN Rodriguez - Last Filed: 06/24/19 20:52> Medical History (Updated 06/24/19 @ 20:23 by CHRISTIAN Rodriguez) Gout (Acute) Hypothyroidism (Acute) Splenomegaly (Acute) Myelofibrosis (Chronic) Asthma (Resolved) Surgical History No history of previous surgery (Resolved 04/01/13) Social History Smoking Status: Former smoker Social History Smoking Status: Former smoker Exam <CHRISTIAN Rodriguez - Last Filed: 06/24/19 20:52> Narrative Exam Narrative: GEN: Alert, oriented x 3, well appearing and nourished, and in no acute distress. Head: Normal cephalic, atraumatic. No scalp or temporal tenderness, palpable mass or rash. EYES: Pupils are equal, round, and reactive to light and accommodation. Extraocular muscles are intact bilaterally. There is no subconjunctival hemorrhage. ENT: Bilateral auditory canals and tympanic membranes. Hearing grossly intact. Nose without bleeding, purulent discharge. Facial sinuses nontender to palpate. Mucous membrane moist, no mucosal lesion. Throat without erythema, tonsillar hypertrophy or exudate. Uvula in midline, airway patent. Neck: Trachea in midline. No JVD, non-tender without lymphadenopathy. No masses or thyroid megaly. Supple, non-tender and no meningeal signs. CARDIAC: Normal regular rate and rhythm without murmurs, gallops, or rubs. No chest wall tenderness. No peripheral edema, cyanosis or pallor. Capillary refill is less than 2 seconds. RESPIRATORY: Lungs are cleat to auscultate bilaterally. No cough, wheezes, rales, or rhonchi. No stridor, respiratory distress, increase work of breathing, or accessary muscle used. ABD: Abdomen soft, tender to palpate in LUQ and non-distended. No guarding or rebound tenderness to palpate. Bowel sounds are normal in all 4 quadrants. EXT: Full painless ROM of all extremities with no loss of sensation, strength, effusion or edema. SKIN: 2-3 of Isolated macular rash on the dorsal aspect of right hand. Warm, dry, normal color for patient. No erythema or lesion BACK: Nontender without deformity or crepitance. No flank tenderness. NEUROLOGICAL: Alert and oriented to place, time and person. Sensation and motor function intact bilaterally. No facial droops, dysphasia. PSYCHIATRIC: Good judgement and reason, without hallucinations, abnormal affect or abnormal behaviors during the examination. Initial Vital Signs Initial Vital Signs: Vital Signs Temperature 98.2 F 06/24/19 16:33 Pulse Rate 78 06/24/19 16:33 Respiratory Rate 14 06/24/19 16:33 Blood Pressure 140/67 06/24/19 16:33 Pulse Oximetry 97 06/24/19 16:33 <Jonathan Plunkett DO - Last Filed: 06/25/19 19:25> Initial Vital Signs Initial Vital Signs: Vital Signs Temperature 98.2 F 06/24/19 16:33 Pulse Rate 78 06/24/19 16:33 Respiratory Rate 14 06/24/19 16:33 Blood Pressure 140/67 06/24/19 16:33 Pulse Oximetry 97 06/24/19 16:33 Course <CHRISTIAN Rodriguez - Last Filed: 06/24/19 20:52> Orders Ordered: ED Orders 06/24/19 17:03 XR chest 2V Stat 06/24/19 17:05 Urine Microscopic Stat 06/24/19 17:20 Complete Blood Count AUTO DIFF Stat Comprehensive Metabolic Panel Stat Lactate (Lactic Acid) Stat Partial Thromboplastin Time Stat Procalcitonin Stat Prothrombin Time INR Stat 06/24/19 17:50 Blood Culture Stat Vital Signs - 8 hr 06/24/19 16:33 06/24/19 18:14 06/24/19 18:16 Temperature 98.2 F 98.3 F Pulse Rate 78 83 Respiratory Rate 14 17 Blood Pressure 140/67 Blood Pressure [Left Arm] 139/74 Pulse Oximetry 97 100 <Jonathan BhavinkeshiaDO - Last Filed: 06/25/19 19:25> Orders Ordered: ED Orders 06/24/19 17:03 XR chest 2V Stat 06/24/19 17:05 Urine Microscopic Stat 06/24/19 17:20 Complete Blood Count AUTO DIFF Stat Comprehensive Metabolic Panel Stat Lactate (Lactic Acid) Stat Partial Thromboplastin Time Stat Procalcitonin Stat Prothrombin Time INR Stat 06/24/19 17:50 Blood Culture Stat Vital Signs - 8 hr 06/24/19 16:33 06/24/19 18:14 06/24/19 18:16 Temperature 98.2 F 98.3 F Pulse Rate 78 83 Respiratory Rate 14 17 Blood Pressure 140/67 Blood Pressure [Left Arm] 139/74 Pulse Oximetry 97 100 MDM - Fever <Hakan MarquisCHRISTIAN - Last Filed: 06/24/19 20:52> Differential Diagnosis Likely fever of unknown origin, community acquired pneumonia, pyelonephritis and sepsis Medical Records Attestation: I reviewed the patient's medical records. Lab Data Attestation: I reviewed the patient's lab results. Result diagrams: 06/24/19 17:20 06/24/19 17:20 Lab Results 06/24/19 06/24/19 06/24/19 Range/Units 17:05 17:20 17:20 WBC 12.1 H (4.5-11.0) X10^3/uL RBC 3.70 L (4.5-5.9) X10^6/uL Hgb 10.2 L (13.5-17.5) g/dL Hct 30.8 L (41-53) % MCV 83.2 (80-100) fL MCH 27.7 (26-34) PG MCHC 33.2 (30-36) % RDW 18.9 H (11.6-14.8) % Plt Count 39 L (150-400) X10^3/uL Neut % (Auto) Not Reportable Lymph % (Auto) Not Reportable Humphreys % (Auto) Not Reportable Eos % (Auto) Not Reportable Baso % (Auto) Not Reportable Lymph # (Auto) Not Reportable Humphreys # (Auto) Not Reportable Baso # (Auto) Not Reportable Total Counted 100 Seg Neutrophils % 20.0 L (38-70) % Band Neutrophils % 19.0 H (3-7) % Lymphocytes % (Manual) 7.0 L (25-45) % Atypical Lymphs % 1.0 H ( - 0) % Monocytes % (Manual) 13.0 H (2-11) % Eosinophils % (Manual) 3.0 (2-4) % Basophils % (Manual) 20.0 H (0-1) % Metamyelocytes % 5.0 H (-0) % Myelocytes % 10.0 H (-0) % Promyelocytes % 2.0 H (-0) % Neutrophils # (Manual) 4719 (8812-1246) /uL Nucleated RBCs 2 H ( - 0) #/Diff Platelet Estimate Decreased on smear RBC Morphology See below Polychromasia 2+ H PT 13.7 H (10.1-12.7) SECONDS INR 1.2 (0.9-1.3) APTT 34 (26.4-36.2) SECONDS Sodium (137-145) mmol/L Potassium (3.4-5.1) mmol/L Chloride (98-107) mmol/L Carbon Dioxide (22-32) mmol/L BUN (9-20) mg/dL Creatinine (0.66-1.25) mg/dL Estimated GFR (>60) mL/min BUN/Creatinine Ratio (6-22) Glucose (80-110) mg/dL Lactate (0.7-2.1) mmol/L Calcium (8.4-10.2) mg/dL Total Bilirubin (0.2-1.3) mg/dL AST (17-59) IU/L ALT (21-72) IU/L Alkaline Phosphatase (38-126) U/L Total Protein (6.3-8.2) g/dL Albumin (3.5-5.0) g/dL Globulin (1.7-4.1) g/dL Albumin/Globulin Ratio (1.0-2.8) Procalcitonin (<0.5) ng/mL Urine RBC None seen (0-5/HPF) Urine WBC None seen (0-5/HPF) Urine Bacteria None seen (None) Ur Culture Indicated? Cult not indicated Micro UA Comment Microscopic normal 06/24/19 06/24/19 06/24/19 Range/Units 17:20 17:20 17:20 WBC (4.5-11.0) X10^3/uL RBC (4.5-5.9) X10^6/uL Hgb (13.5-17.5) g/dL Hct (41-53) % MCV (80-100) fL MCH (26-34) PG MCHC (30-36) % RDW (11.6-14.8) % Plt Count (150-400) X10^3/uL Neut % (Auto) Lymph % (Auto) Humphreys % (Auto) Eos % (Auto) Baso % (Auto) Lymph # (Auto) Humphreys # (Auto) Baso # (Auto) Total Counted Seg Neutrophils % (38-70) % Band Neutrophils % (3-7) % Lymphocytes % (Manual) (25-45) % Atypical Lymphs % ( - 0) % Monocytes % (Manual) (2-11) % Eosinophils % (Manual) (2-4) % Basophils % (Manual) (0-1) % Metamyelocytes % (-0) % Myelocytes % (-0) % Promyelocytes % (-0) % Neutrophils # (Manual) (0476-2503) /uL Nucleated RBCs ( - 0) #/Diff Platelet Estimate RBC Morphology Polychromasia PT (10.1-12.7) SECONDS INR (0.9-1.3) APTT (26.4-36.2) SECONDS Sodium 137 (137-145) mmol/L Potassium 4.3 (3.4-5.1) mmol/L Chloride 100 (98-107) mmol/L Carbon Dioxide 23 (22-32) mmol/L BUN 25 H (9-20) mg/dL Creatinine 1.70 H (0.66-1.25) mg/dL Estimated GFR 40.2 L (>60) mL/min BUN/Creatinine Ratio 14.7 (6-22) Glucose 95 (80-110) mg/dL Lactate 0.8 (0.7-2.1) mmol/L Calcium 9.3 (8.4-10.2) mg/dL Total Bilirubin 1.0 (0.2-1.3) mg/dL AST 36 (17-59) IU/L ALT 25 (21-72) IU/L Alkaline Phosphatase 60 (38-126) U/L Total Protein 8.5 H (6.3-8.2) g/dL Albumin 4.8 (3.5-5.0) g/dL Globulin 3.7 (1.7-4.1) g/dL Albumin/Globulin Ratio 1.3 (1.0-2.8) Procalcitonin 0.22 (<0.5) ng/mL Urine RBC (0-5/HPF) Urine WBC (0-5/HPF) Urine Bacteria (None) Ur Culture Indicated? Micro UA Comment Urine Dip Bedside Urine Glucose Negative Bedside Urine Bilirubin ++ 2 Bedside Urine Ketone +/- 5 Urine Specific Outing 1.025 Bedside Urine Occult Blood - Negative Bedside Urine pH 5.0 Bedside Urine Protein + 30 Bedside Urine Urobilinogen 1+ 2mg Bedside Urine Nitrite - Negative Bedside Urine Leukocytes - Negative Esterase MDM Narrative Medical decision making narrative: This is a 68-year-old gentleman came from an [facility] to get an evaluation for fever workup after he was instructed by Dr. Jamil's office nurse. He has been having fever for 2 weeks without the obvious cause for fever. He is currently being treated for myelofibrosis with Jakafi and the current dose was increased about a month ago. Patient appears to be nontoxic and in no acute distress. The patient was informed of of fever workup including chest x-ray test, blood tests and urine test and agrees with the testing. The chest x-ray shows normal reading, the urine test shows no signs of infection. Two sets of blood cultures were drawn. The lactate level was 0.8 and procalcitonin was 0.22 which were both within normal limits. The patient's GFR is 40.2 which has been slightly decreased from previous months. Patient has known kidney stage 3 disease. His liver function tests was unremarkable. The white count was 12.1, H/H=10.2/30.8, platelet count was 39. There was no significant changes from yesterday's blood test. While I was waiting for a phone call from on-call oncologist to discuss the findings, patient has eloped ED at 1830. Prior this, the patient was advised several time by myself and the nurse to stay in ED until I speak with the oncologist to inform the findings and the further possible treatment such as antibiotic medication. The patient states she has to take a Bureau back to home. If he misses this Bureau, he will have to wait several hours for the next one. His GCS was 15 and was alert oriented, he had full mental capacity to make sound decisions per our previous discussions. He left the ED without letting any staff member know and before I was able to discuss risks of leaving ED against the medical advice. After the patient left, Dr.Kirashi Woodward call back at [phone]. The findings were discussed with Dr. Woodward and his [facility] ED. According to , he will discuss this with Dr. Jamil tomorrow and the clinic will follow up with the patient. <Jonathan Plunkett, DO - Last Filed: 06/25/19 19:25> Lab Data Lab Results 06/24/19 06/24/19 06/24/19 Range/Units 17:05 17:20 17:20 WBC 12.1 H (4.5-11.0) X10^3/uL RBC 3.70 L (4.5-5.9) X10^6/uL Hgb 10.2 L (13.5-17.5) g/dL Hct 30.8 L (41-53) % MCV 83.2 (80-100) fL MCH 27.7 (26-34) PG MCHC 33.2 (30-36) % RDW 18.9 H (11.6-14.8) % Plt Count 39 L (150-400) X10^3/uL Neut % (Auto) Not Reportable Lymph % (Auto) Not Reportable Humphreys % (Auto) Not Reportable Eos % (Auto) Not Reportable Baso % (Auto) Not Reportable Lymph # (Auto) Not Reportable Humphreys # (Auto) Not Reportable Baso # (Auto) Not Reportable Total Counted 100 Seg Neutrophils % 20.0 L (38-70) % Band Neutrophils % 19.0 H (3-7) % Lymphocytes % (Manual) 7.0 L (25-45) % Atypical Lymphs % 1.0 H ( - 0) % Monocytes % (Manual) 13.0 H (2-11) % Eosinophils % (Manual) 3.0 (2-4) % Basophils % (Manual) 20.0 H (0-1) % Metamyelocytes % 5.0 H (-0) % Myelocytes % 10.0 H (-0) % Promyelocytes % 2.0 H (-0) % Neutrophils # (Manual) 4719 (0916-8946) /uL Nucleated RBCs 2 H ( - 0) #/Diff Platelet Estimate Decreased on smear RBC Morphology See below Polychromasia 2+ H PT 13.7 H (10.1-12.7) SECONDS INR 1.2 (0.9-1.3) APTT 34 (26.4-36.2) SECONDS Sodium (137-145) mmol/L Potassium (3.4-5.1) mmol/L Chloride (98-107) mmol/L Carbon Dioxide (22-32) mmol/L BUN (9-20) mg/dL Creatinine (0.66-1.25) mg/dL Estimated GFR (>60) mL/min BUN/Creatinine Ratio (6-22) Glucose (80-110) mg/dL Lactate (0.7-2.1) mmol/L Calcium (8.4-10.2) mg/dL Total Bilirubin (0.2-1.3) mg/dL AST (17-59) IU/L ALT (21-72) IU/L Alkaline Phosphatase (38-126) U/L Total Protein (6.3-8.2) g/dL Albumin (3.5-5.0) g/dL Globulin (1.7-4.1) g/dL Albumin/Globulin Ratio (1.0-2.8) Procalcitonin (<0.5) ng/mL Urine RBC None seen (0-5/HPF) Urine WBC None seen (0-5/HPF) Urine Bacteria None seen (None) Ur Culture Indicated? Cult not indicated Micro UA Comment Microscopic normal 06/24/19 06/24/19 06/24/19 Range/Units 17:20 17:20 17:20 WBC (4.5-11.0) X10^3/uL RBC (4.5-5.9) X10^6/uL Hgb (13.5-17.5) g/dL Hct (41-53) % MCV (80-100) fL MCH (26-34) PG MCHC (30-36) % RDW (11.6-14.8) % Plt Count (150-400) X10^3/uL Neut % (Auto) Lymph % (Auto) Humphreys % (Auto) Eos % (Auto) Baso % (Auto) Lymph # (Auto) Humphreys # (Auto) Baso # (Auto) Total Counted Seg Neutrophils % (38-70) % Band Neutrophils % (3-7) % Lymphocytes % (Manual) (25-45) % Atypical Lymphs % ( - 0) % Monocytes % (Manual) (2-11) % Eosinophils % (Manual) (2-4) % Basophils % (Manual) (0-1) % Metamyelocytes % (-0) % Myelocytes % (-0) % Promyelocytes % (-0) % Neutrophils # (Manual) (4327-4344) /uL Nucleated RBCs ( - 0) #/Diff Platelet Estimate RBC Morphology Polychromasia PT (10.1-12.7) SECONDS INR (0.9-1.3) APTT (26.4-36.2) SECONDS Sodium 137 (137-145) mmol/L Potassium 4.3 (3.4-5.1) mmol/L Chloride 100 (98-107) mmol/L Carbon Dioxide 23 (22-32) mmol/L BUN 25 H (9-20) mg/dL Creatinine 1.70 H (0.66-1.25) mg/dL Estimated GFR 40.2 L (>60) mL/min BUN/Creatinine Ratio 14.7 (6-22) Glucose 95 (80-110) mg/dL Lactate 0.8 (0.7-2.1) mmol/L Calcium 9.3 (8.4-10.2) mg/dL Total Bilirubin 1.0 (0.2-1.3) mg/dL AST 36 (17-59) IU/L ALT 25 (21-72) IU/L Alkaline Phosphatase 60 (38-126) U/L Total Protein 8.5 H (6.3-8.2) g/dL Albumin 4.8 (3.5-5.0) g/dL Globulin 3.7 (1.7-4.1) g/dL Albumin/Globulin Ratio 1.3 (1.0-2.8) Procalcitonin 0.22 (<0.5) ng/mL Urine RBC (0-5/HPF) Urine WBC (0-5/HPF) Urine Bacteria (None) Ur Culture Indicated? Micro UA Comment Urine Dip Bedside Urine Glucose Negative Bedside Urine Bilirubin ++ 2 Bedside Urine Ketone +/- 5 Urine Specific Outing 1.025 Bedside Urine Occult Blood - Negative Bedside Urine pH 5.0 Bedside Urine Protein + 30 Bedside Urine Urobilinogen 1+ 2mg Bedside Urine Nitrite - Negative Bedside Urine Leukocytes - Negative Esterase Discharge Plan Departure Patient Disposition: Home Clinical Impression: Fever of unknown origin Discharge Date/Time: 06/24/19 19:05 Interventions: ED Discharge Assessment Last Done: 06/24/19 19:05 Instructions: DI for Fever (Symptom) -- Adult Activity Restrictions/Additional Instructions: You have been diagnosed with [fever of unknown origin. Your blood test, xray, urine test, sepsis indictions are unremarkable]. What to do: *Take your medications as directed. *Follow up with your primary care provider in 2-3 days, oncologist tomorrow, call for an appointment. Let them know you were seen in the ED and that we asked you to be seen in follow up. *Return to ED if you have any new, worsening, or concerning symptoms, such as [chest pain, breathing difficulty, abdominal pain, voiding difficulty, unable to tolerate fluids, worsening fever, any acute concerns]. Prescriptions: No Action Jakafi 20 mg tablet 20 mg PO BID RF: 0 levothyroxine [Synthroid] 50 mcg tablet 100 mcg PO DAILY RF: 0 allopurinol 300 mg tablet 300 mg PO QPM RF: 0 colchicine 0.6 mg tablet 0.6 mg PO QPM RF: 0 metronidazole [Metrogel] 1 % gel 1 % Topical DIRECTED RF: 0 Referrals: Amol Riggins MD [Primary Care Provider] - Avery Jamil MD [Physician] - <Jonathan Plunkett DO - Last Filed: 06/25/19 19:25> Cosign ED Attending Charity Attestation: I was available for consultation during this patient's emergency department encounter
--- NOTE | 2019-06-24 20:24 | ED_ITS ---
HPI - Fever <CHRISTIAN Rodriguez - Last Filed: 06/24/19 20:52> General Chief Complaint: Fever Stated Complaint: STATES SENT BY DR JAMIL Time Seen by Provider: 06/24/19 16:30 Source: patient Mode of arrival: ambulatory Limitations: no limitations History of Present Illness HPI Narrative: This is a 68-year-old gentleman, previous smoker, presents to ED after he was instructed to come in to ED by his oncologist/thread grinder, Dr. Jamil, for an evaluation for ongoing fever for 2 weeks. The patient is getting a treatment with Jakafi for the myelofibrosis. Patient reports the max temperatu re at home was 103 and he felt dizzy and fell down once from this. He had 1 episode of severe chills, mildly increased fatigue and nausea from his baseline. He denies coughing, headache, pain including abdominal, urinary symptoms such as urgency/ frequency/ burning, dyspnea. He also states has known splenomegaly and the last ultrasound was done about a month ago. He reports he is known to have abnormal blood counts including anemia, low platelets. He reports having small a few macular lesions on his right hand and left cheek area. He has been using Tylenol 1000 mg around the clock at home for fever and the last dose was about 2 hours ago. Related Data Home Medications Medication Instructions Recorded Confirmed allopurinol 300 mg PO QPM 06/24/19 06/24/19 colchicine 0.6 mg PO QPM 06/24/19 06/24/19 levothyroxine [Synthroid] 100 mcg PO DAILY 06/24/19 06/24/19 metronidazole [Metrogel] 1 % TOPICAL DIRECTED 06/24/19 06/24/19 ruxolitinib [Jakafi] 20 mg PO BID 06/24/19 06/24/19 Allergies Allergy/AdvReac Type Severity Reaction Status Date / Time ondansetron AdvReac Unknown Verified 06/24/19 17:09 Review of Systems <CHRISTIAN Rodriguez - Last Filed: 06/24/19 20:52> Review of Systems General: See HPI HEENT: Denies sinus pain, ear pain, sore throat, difficulty swallowing, dizziness. Respiratory: Denies dyspnea, cough, wheezing, hemoptysis, sputum. Cardiovascular: Denies chest pain, palpitations, orthopnea, edema. Gastrointestinal: Denies nausea, vomiting, abdominal pain, diarrhea, constipation, melena. : Denies dysuria, frequency, incontinence, hematuria, urinary retention. Musculoskeletal: Denies weakness, joint pain or bony pain. Skin: See HPI Neurologic: Denies weakness, headache, numbness, change in speech, confusion, seizures, incoordination. Psychiatric: No concerning psychosocial issues. 12-point review of systems is negative except for those stated above. PFSH <CHRISTIAN Rodriguez - Last Filed: 06/24/19 20:52> Medical History (Updated 06/24/19 @ 20:23 by CHRISTIAN Rodriguez) Gout (Acute) Hypothyroidism (Acute) Splenomegaly (Acute) Myelofibrosis (Chronic) Asthma (Resolved) Surgical History No history of previous surgery (Resolved 04/01/13) Social History Smoking Status: Former smoker Social History Smoking Status: Former smoker Exam <CHRISTIAN Rodriguez - Last Filed: 06/24/19 20:52> Narrative Exam Narrative: GEN: Alert, oriented x 3, well appearing and nourished, and in no acute distress. Head: Normal cephalic, atraumatic. No scalp or temporal tenderness, palpable mass or rash. EYES: Pupils are equal, round, and reactive to light and accommodation. Extraocular muscles are intact bilaterally. There is no subconjunctival hemorrhage. ENT: Bilateral auditory canals and tympanic membranes. Hearing grossly intact. Nose without bleeding, purulent discharge. Facial sinuses nontender to palpate. Mucous membrane moist, no mucosal lesion. Throat without erythema, tonsillar hypertrophy or exudate. Uvula in midline, airway patent. Neck: Trachea in midline. No JVD, non-tender without lymphadenopathy. No masses or thyroid megaly. Supple, non-tender and no meningeal signs. CARDIAC: Normal regular rate and rhythm without murmurs, gallops, or rubs. No chest wall tenderness. No peripheral edema, cyanosis or pallor. Capillary refill is less than 2 seconds. RESPIRATORY: Lungs are cleat to auscultate bilaterally. No cough, wheezes, rales, or rhonchi. No stridor, respiratory distress, increase work of breathing, or accessary muscle used. ABD: Abdomen soft, tender to palpate in LUQ and non-distended. No guarding or rebound tenderness to palpate. Bowel sounds are normal in all 4 quadrants. EXT: Full painless ROM of all extremities with no loss of sensation, strength, effusion or edema. SKIN: 2-3 of Isolated macular rash on the dorsal aspect of right hand. Warm, dry, normal color for patient. No erythema or lesion BACK: Nontender without deformity or crepitance. No flank tenderness. NEUROLOGICAL: Alert and oriented to place, time and person. Sensation and motor function intact bilaterally. No facial droops, dysphasia. PSYCHIATRIC: Good judgement and reason, without hallucinations, abnormal affect or abnormal behaviors during the examination. Initial Vital Signs Initial Vital Signs: Vital Signs Temperature 98.2 F 06/24/19 16:33 Pulse Rate 78 06/24/19 16:33 Respiratory Rate 14 06/24/19 16:33 Blood Pressure 140/67 06/24/19 16:33 Pulse Oximetry 97 06/24/19 16:33 <Jonathan Plunkett DO - Last Filed: 06/25/19 19:25> Initial Vital Signs Initial Vital Signs: Vital Signs Temperature 98.2 F 06/24/19 16:33 Pulse Rate 78 06/24/19 16:33 Respiratory Rate 14 06/24/19 16:33 Blood Pressure 140/67 06/24/19 16:33 Pulse Oximetry 97 06/24/19 16:33 Course <CHRISTIAN Rodriguez - Last Filed: 06/24/19 20:52> Orders Ordered: ED Orders 06/24/19 17:03 XR chest 2V Stat 06/24/19 17:05 Urine Microscopic Stat 06/24/19 17:20 Complete Blood Count AUTO DIFF Stat Comprehensive Metabolic Panel Stat Lactate (Lactic Acid) Stat Partial Thromboplastin Time Stat Procalcitonin Stat Prothrombin Time INR Stat 06/24/19 17:50 Blood Culture Stat Vital Signs - 8 hr 06/24/19 16:33 06/24/19 18:14 06/24/19 18:16 Temperature 98.2 F 98.3 F Pulse Rate 78 83 Respiratory Rate 14 17 Blood Pressure 140/67 Blood Pressure [Left Arm] 139/74 Pulse Oximetry 97 100 <Jonathan Plunkett DO - Last Filed: 06/25/19 19:25> Orders Ordered: ED Orders 06/24/19 17:03 XR chest 2V Stat 06/24/19 17:05 Urine Microscopic Stat 06/24/19 17:20 Complete Blood Count AUTO DIFF Stat Comprehensive Metabolic Panel Stat Lactate (Lactic Acid) Stat Partial Thromboplastin Time Stat Procalcitonin Stat Prothrombin Time INR Stat 06/24/19 17:50 Blood Culture Stat Vital Signs - 8 hr 06/24/19 16:33 06/24/19 18:14 06/24/19 18:16 Temperature 98.2 F 98.3 F Pulse Rate 78 83 Respiratory Rate 14 17 Blood Pressure 140/67 Blood Pressure [Left Arm] 139/74 Pulse Oximetry 97 100 MDM - Fever <Hakan العليCHRISTIAN Gregory - Last Filed: 06/24/19 20:52> Differential Diagnosis Likely fever of unknown origin, community acquired pneumonia, pyelonephritis and sepsis Medical Records Attestation: I reviewed the patient's medical records. Lab Data Attestation: I reviewed the patient's lab results. Result diagrams: 06/24/19 17:20 06/24/19 17:20 Lab Results 06/24/19 06/24/19 06/24/19 Range/Units 17:05 17:20 17:20 WBC 12.1 H (4.5-11.0) X10^3/uL RBC 3.70 L (4.5-5.9) X10^6/uL Hgb 10.2 L (13.5-17.5) g/dL Hct 30.8 L (41-53) % MCV 83.2 (80-100) fL MCH 27.7 (26-34) PG MCHC 33.2 (30-36) % RDW 18.9 H (11.6-14.8) % Plt Count 39 L (150-400) X10^3/uL Neut % (Auto) Not Reportable Lymph % (Auto) Not Reportable [place] % (Auto) Not Reportable Eos % (Auto) Not Reportable Baso % (Auto) Not Reportable Lymph # (Auto) Not Reportable [place] # (Auto) Not Reportable Baso # (Auto) Not Reportable Total Counted 100 Seg Neutrophils % 20.0 L (38-70) % Band Neutrophils % 19.0 H (3-7) % Lymphocytes % (Manual) 7.0 L (25-45) % Atypical Lymphs % 1.0 H ( - 0) % Monocytes % (Manual) 13.0 H (2-11) % Eosinophils % (Manual) 3.0 (2-4) % Basophils % (Manual) 20.0 H (0-1) % Metamyelocytes % 5.0 H (-0) % Myelocytes % 10.0 H (-0) % Promyelocytes % 2.0 H (-0) % Neutrophils # (Manual) 4719 (7414-1868) /uL Nucleated RBCs 2 H ( - 0) #/Diff Platelet Estimate Decreased on smear RBC Morphology See below Polychromasia 2+ H PT 13.7 H (10.1-12.7) SECONDS INR 1.2 (0.9-1.3) APTT 34 (26.4-36.2) SECONDS Sodium (137-145) mmol/L Potassium (3.4-5.1) mmol/L Chloride (98-107) mmol/L Carbon Dioxide (22-32) mmol/L BUN (9-20) mg/dL Creatinine (0.66-1.25) mg/dL Estimated GFR (>60) mL/min BUN/Creatinine Ratio (6-22) Glucose (80-110) mg/dL Lactate (0.7-2.1) mmol/L Calcium (8.4-10.2) mg/dL Total Bilirubin (0.2-1.3) mg/dL AST (17-59) IU/L ALT (21-72) IU/L Alkaline Phosphatase (38-126) U/L Total Protein (6.3-8.2) g/dL Albumin (3.5-5.0) g/dL Globulin (1.7-4.1) g/dL Albumin/Globulin Ratio (1.0-2.8) Procalcitonin (<0.5) ng/mL Urine RBC None seen (0-5/HPF) Urine WBC None seen (0-5/HPF) Urine Bacteria None seen (None) Ur Culture Indicated? Cult not indicated Micro UA Comment Microscopic normal 06/24/19 06/24/1906/24/19 Range/Units 17:20 17:20 17:20 WBC (4.5-11.0) X10^3/uL RBC (4.5-5.9) X10^6/uL Hgb (13.5-17.5) g/dL Hct (41-53) % MCV (80-100) fL MCH (26-34) PG MCHC (30-36) % RDW (11.6-14.8) % Plt Count (150-400) X10^3/uL Neut % (Auto) Lymph % (Auto) [place] % (Auto) Eos % (Auto) Baso % (Auto) Lymph # (Auto) [place] # (Auto) Baso # (Auto) Total Counted Seg Neutrophils % (38-70) % Band Neutrophils % (3-7) % Lymphocytes % (Manual) (25-45) % Atypical Lymphs % ( - 0) % Monocytes % (Manual) (2-11) % Eosinophils % (Manual) (2-4) % Basophils % (Manual) (0-1) % Metamyelocytes % (-0) % Myelocytes % (-0) % Promyelocytes % (-0) % Neutrophils # (Manual) (9185-2508) /uL Nucleated RBCs ( - 0) #/Diff Platelet Estimate RBC Morphology Polychromasia PT (10.1-12.7) SECONDS INR (0.9-1.3) APTT (26.4-36.2) SECONDS Sodium 137 (137-145) mmol/L Potassium 4.3 (3.4-5.1) mmol/L Chloride 100 (98-107) mmol/L Carbon Dioxide 23 (22-32) mmol/L BUN 25 H (9-20) mg/dL Creatinine 1.70 H (0.66-1.25) mg/dL Estimated GFR 40.2 L (>60) mL/min BUN/Creatinine Ratio 14.7 (6-22) Glucose 95 (80-110) mg/dL Lactate 0.8 (0.7-2.1) mmol/L Calcium 9.3 (8.4-10.2) mg/dL Total Bilirubin 1.0 (0.2-1.3) mg/dL AST 36 (17-59) IU/L ALT 25 (21-72) IU/L Alkaline Phosphatase 60 (38-126) U/L Total Protein 8.5 H (6.3-8.2) g/dL Albumin 4.8 (3.5-5.0) g/dL Globulin 3.7 (1.7-4.1) g/dL Albumin/Globulin Ratio 1.3 (1.0-2.8) Procalcitonin 0.22 (<0.5) ng/mL Urine RBC (0-5/HPF) Urine WBC (0-5/HPF) Urine Bacteria (None) Ur Culture Indicated? Micro UA Comment Urine Dip Bedside Urine Glucose Negative Bedside Urine Bilirubin ++ 2 Bedside Urine Ketone +/- 5 Urine Specific Bruin 1.025 Bedside Urine Occult Blood - Negative Bedside Urine pH 5.0 Bedside Urine Protein + 30 Bedside Urine Urobilinogen 1+ 2mg Bedside Urine Nitrite - Negative Bedside Urine Leukocytes - Negative Esterase MDM Narrative Medical decision making narrative: This is a 68-year-old gentleman came from an [facility] to get an evaluation for fever workup after he was instructed by Dr. Jamil's office nurse. He has been having fever for 2 weeks without the obvious cause for fever. He is currently being treated for myelofibrosis with Jakafi and the current dose was increased about a month ago. Patient appears to be nontoxic and in no acute distress. The patient was informed of of fever workup including chest x-ray test, blood tests and urine test and agrees with the testing. The chest x-ray shows normal reading, the urine test shows no signs of infection. Two sets of blood cultures were drawn. The lactate level was 0.8 and procalcitonin was 0.22 which were both within normal limits. The patient's GFR is 40.2 which has been slightly decreased from previous months. Patient has known kidney stage 3 disease. His liver function tests was unremarkable. The white count was 12.1, H/H=10.2/30.8, platelet count was 39. There was no significant changes from yesterday's blood test. While I was waiting for a phone call from on-call oncologist to discuss the findings, patient has eloped ED at 1830. Prior this, the patient was advised several time by myself and the nurse to stay in ED until I speak with the oncologist to inform the findings and the further possible treatment such as antibiotic medication. The patient states she has to take a [place] back to home. If he mi sses this [place], he will have to wait several hours for the next one. His GCS was 15 and was alert oriented, he had full mental capacity to make sound decisions per our previous discussions. He left the ED without letting any staff member know and before I was able to discuss risks of leaving ED against the medical advice. After the patient left, Dr.Kirashi Woodward call back at 1905. The findings were discussed with Dr. Woodward and his [facility] ED. According to , he will discuss this with Dr. Jamil tomorrow and the clinic will follow up with the patient. <Jonathan Plunkett, DO - Last Filed: 06/25/19 19:25> Lab Data Lab Results 06/24/19 06/24/19 06/24/19 Range/Units 17:05 17:20 17:20 WBC 12.1 H (4.5-11.0) X10^3/uL RBC 3.70 L (4.5-5.9) X10^6/uL Hgb 10.2 L (13.5-17.5) g/dL Hct 30.8 L (41-53) % MCV 83.2 (80-100) fL MCH 27.7 (26-34) PG MCHC 33.2 (30-36) % RDW 18.9 H (11.6-14.8) % Plt Count 39 L (150-400) X10^3/uL Neut % (Auto) Not Reportable Lymph % (Auto) Not Reportable [place] % (Auto) Not Reportable Eos % (Auto) Not Reportable Baso % (Auto) Not Reportable Lymph # (Auto) Not Reportable [place] # (Auto) Not Reportable Baso # (Auto) Not Reportable Total Counted 100 Seg Neutrophils % 20.0 L (38-70) % Band Neutrophils % 19.0 H (3-7) % Lymphocytes % (Manual) 7.0 L (25-45) % Atypical Lymphs % 1.0 H ( - 0) % Monocytes % (Manual) 13.0 H (2-11) % Eosinophils % (Manual) 3.0 (2-4) % Basophils % (Manual) 20.0 H (0-1) % Metamyelocytes % 5.0 H (-0) % Myelocytes % 10.0 H (-0) % Promyelocytes % 2.0 H (-0) % Neutrophils # (Manual) 4719 (8795-1182) /uL Nucleated RBCs 2 H ( - 0) #/Diff Platelet Estimate Decreased on smear RBC Morphology See below Polychromasia 2+ H PT 13.7 H (10.1-12.7) SECONDS INR 1.2 (0.9-1.3) APTT 34 (26.4-36.2) SECONDS Sodium (137-145) mmol/L Potassium (3.4-5.1) mmol/L Chloride (98-107) mmol/L Carbon Dioxide (22-32) mmol/L BUN (9-20) mg/dL Creatinine (0.66-1.25) mg/dL Estimated GFR (>60) mL/min BUN/Creatinine Ratio (6-22) Glucose (80-110) mg/dL Lactate (0.7-2.1) mmol/L Calcium (8.4-10.2) mg/dL Total Bilirubin (0.2-1.3) mg/dL AST (17-59) IU/L ALT (21-72) IU/L Alkaline Phosphatase (38-126) U/L Total Protein (6.3-8.2) g/dL Albumin (3.5-5.0) g/dL Globulin (1.7-4.1) g/dL Albumin/Globulin Ratio (1.0-2.8) Procalcitonin (<0.5) ng/mL Urine RBC None seen (0-5/HPF) Urine WBC None seen (0-5/HPF) Urine Bacteria None seen (None) Ur Culture Indicated? Cult not indicated Micro UA Comment Microscopic normal 06/24/19 06/24/19 06/24/19 Range/Units 17:20 17:20 17:20 WBC (4.5-11.0) X10^3/uL RBC (4.5-5.9) X10^6/uL Hgb (13.5-17.5) g/dL Hct (41-53) % MCV (80-100) fL MCH (26-34) PG MCHC (30-36) % RDW (11.6-14.8) % Plt Count (150-400) X10^3/uL Neut % (Auto) Lymph % (Auto) [place] % (Auto) Eos % (Auto) Baso % (Auto) Lymph # (Auto) [place] # (Auto) Baso # (Auto) Total Counted Seg Neutrophils % (38-70) % Band Neutrophils % (3-7) % Lymphocytes % (Manual) (25-45) % Atypical Lymphs % ( - 0) % Monocytes % (Manual) (2-11) % Eosinophils % (Manual) (2-4) % Basophils % (Manual) (0-1) % Metamyelocytes % (-0) % Myelocytes % (-0) % Promyelocytes % (-0) % Neutrophils # (Manual) (8893-0185) /uL Nucleated RBCs ( - 0) #/Diff Platelet Estimate RBC Morphology Polychromasia PT (10.1-12.7) SECONDS INR (0.9-1.3) APTT (26.4-36.2) SECONDS Sodium 137 (137-145) mmol/L Potassium 4.3 (3.4-5.1) mmol/L Chloride 100 (98-107) mmol/L Carbon Dioxide 23 (22-32) mmol/L BUN 25 H (9-20) mg/dL Creatinine 1.70 H (0.66-1.25) mg/dL Estimated GFR 40.2 L (>60) mL/min BUN/Creatinine Ratio 14.7 (6-22) Glucose 95 (80-110) mg/dL Lactate 0.8 (0.7-2.1) mmol/L Calcium 9.3 (8.4-10.2) mg/dL Total Bilirubin 1.0 (0.2-1.3) mg/dL AST 36 (17-59) IU/L ALT 25 (21-72) IU/L Alkaline Phosphatase 60 (38-126) U/L Total Protein 8.5 H (6.3-8.2) g/dL Albumin 4.8 (3.5-5.0) g/dL Globulin 3.7 (1.7-4.1) g/dL Albumin/Globulin Ratio 1.3 (1.0-2.8) Procalcitonin 0.22 (<0.5) ng/mL Urine RBC (0-5/HPF) Urine WBC (0-5/HPF) Urine Bacteria (None) Ur Culture Indicated? Micro UA Comment Urine Dip Bedside Urine Glucose Negative Bedside Urine Bilirubin ++ 2 Bedside Urine Ketone +/- 5 Urine Specific Bruin 1.025 Bedside Urine Occult Blood - Negative Bedside Urine pH 5.0 Bedside Urine Protein + 30 Bedside Urine Urobilinogen 1+ 2mg Bedside Urine Nitrite - Negative Bedside Urine Leukocytes - Negative Esterase Discharge Plan Departure Patient Disposition: Home Clinical Impression: Fever of unknown origin Discharge Date/Time: 06/24/19 19:05 Interventions: ED Discharge Assessment Last Done: 06/24/19 19:05 Instructions: DI for Fever (Symptom) -- Adult Activity Restrictions/Additional Instructions: You have been diagnosed with [fever of unknown origin. Your blood test, xray, urine test, sepsis indictions are unremarkable]. What to do: *Take your medications as directed. *Follow up with your primary care provider in 2-3 days, oncologist tomorrow, call for an appointment. Let them know you were seen in the ED and that we asked you to be seen in follow up. *Return to ED if you have any new, worsening, or concerning symptoms, such as [chest pain, breathing difficulty, abdominal pain, voiding difficulty, unable to tolerate fluids, worsening fever, any acute concerns]. Prescriptions: No Action Jakafi 20 mg tablet 20 mg PO BID RF: 0 levothyroxine [Synthroid] 50 mcg tablet 100 mcg PO DAILY RF: 0 allopurinol 300 mg tablet 300 mg PO QPM RF: 0 colchicine 0.6 mg tablet 0.6 mg PO QPM RF: 0 metronidazole [Metrogel] 1 % gel 1 % Topical DIRECTED RF: 0 Referrals: Amol Riggins MD [Primary Care Provider] - Avery Jamil MD [Physician] - <Jonathan Plunkett DO - Last Filed: 06/25/19 19:25> Cosign ED Attending Charity Attestation: I was available for consultation during this patient's emergency department encounter
== END 2019-06-24 19:05 | disposition home or self-care (01) ==
PROVIDERS: Emergency Provider Nurse Practitioner Family; Family Provider Family Medicine; PCP Family Medicine
DX: R50.9 Fever, unspecified (principal)
CPT/HCPCS: 36415; 36591; 71046; 80053; 81003; 81015; 83605; 84145; 85025; 85610; 85730; 87040; 99282; 99284

== ENCOUNTER → 2019-07-02 11:47 | Outpatient (CLI) | payer MEDICARE, OTHER, SELFPAY ==
--- NOTE | 2019-07-02 11:55 | DI.CT.S_ITS ---
PROCEDURE: CT CHEST ABD PEL W CON INDICATIONS: FEVER, MYELOFIBROSIS TECHNIQUE: After the administration of oral and intravenous contrast, 5 mm thick sections acquired from the lung apices to the symphysis. 5 mm coronal and sagittal reformats were performed, with additional 7 mm coronal MIP reformats through the lungs. For radiation dose reduction, the following was used: automated exposure control, adjustment of mA and/or kV according to patient size. COMPARISON: [facility], CT, PE STUDY (CTA CHEST), 12/01/2016, 10:59. FINDINGS: Image quality: Excellent. CHEST: Lungs and pleura: There multiple lung nodules bilaterally. 5 nodules are described below. Nodule #1: 3 mm right middle lobe, (series 10 image 180) Nodule #2: 5 mm right lower lobe, (series 10 image 185) Nodule #3: 2 mm right upper lobe, (series 10 image 160) Nodule #4: 3 mm left major lobe, (series 10 image 137) Nodule #5: 2 mm left lower lobe lobe, (series 10 image 187) No acute airspace opacities. No pleural effusions or pneumothorax. Central and peripheral airways appear patent and normal in caliber. Mediastinum: Heart size is normal. No pericardial effusion. No mediastinal or hilar adenopathy by size criteria. Thoracic aorta and central pulmonary arteries are normal in size. Esophagus is normal in caliber. No hiatal hernia. Chest wall: No axillary or supraclavicular adenopathy by size criteria. Thyroid gland is normal. ABDOMEN: Solid organs: Liver is normal in size and enhancement. Gallbladder is normal. Biliary system is non dilated. Pancreas enhances normally. Spleen is a moderately large measuring 21.4 cm in length. No adrenal nodules. Kidneys demonstrate normal size and enhancement, without hydronephrosis. Peritoneum and bowel: Bowel loops demonstrate normal wall thickness and caliber. No free fluid or air. Nodes and vessels: No retroperitoneal or mesenteric adenopathy by size criteria. Aorta and inferior vena cava are normal in size. Miscellaneous: No ventral hernias. PELVIS: Genitourinary: Bladder wall thickness is normal. Miscellaneous: No inguinal hernias or adenopathy. Bones: No suspicious bony lesions. No vertebral body compression fractures. IMPRESSION: 1. Marked splenomegaly. 2. Multiple small hospital superintendent bilaterally, most likely infectious or inflammatory in etiology. Please see enclosed followup recommendation. 3. Diverticulosis. There is short segment thickening of sigmoid colon, suggesting diverticulitis. Consider followup colonoscopy to rule out colonic mass after adequate treatment. Fleischner Society criteria for SOLID lung nodule followup. Nodule size (mm)Low-risk patientHigh-risk patient?4No follow-up neededFollow-up at 12 mo; if no change, no further follow-up>[id number] CT at 12 mo; if no change, no further follow-up needed.Initial follow-up CT at 6-12 mo, then 18-24 mo if no change. >6-8Initial follow-up CT at 6-12 mo, then 18-24 mo if no change. Initial follow-up CT at 3-6 mo, then 9-12 mo and 24 mo if no change. >8Follow-up CT at 3, 9, 24 mo. Or PET and/or biopsy.Same as for low-risk pts. Fleischner Society criteria for SUB-SOLID lung nodule followup. Solitary pure ground-glass nodules5 mm or lessNo followup needed. >5 mm3 mo follow-up CT to confirm persistence. Then annual CT for 3 years. Part-solid nodules3 mo follow-up CT to confirm persistence. If persistent with solid component <5 mm, annual CT for at least 3 years. If solid component is 5 mm or more, biopsy or surgical resection. Consider PET-CT for lesions > 10 mm. Multiple sub-solid nodulesPure ground glass nodules [address] at 2 and 4 years. Pure ground glass nodules >5 mm without dominant lesion. [address] to confirm persistence, then annual followup CT for at least 3 years. Dominant nodule(s) with part-solid or solid component. [address] to confirm persistence. If persistent, consider biopsy or surgical resection, jelani if lesions have >5 mm solid component. Dictated by: Qamar Jimenez M.D. on 07/02/2019 at 16:57 Approved by: Qamar Jimenez M.D. on 07/02/2019 at 18:46
== END ==
PROVIDERS: PCP Family Medicine; Visit Provider Internal Medicine Hematology & Oncology
DX: D75.81 Myelofibrosis (principal); D50.9 Iron deficiency anemia, unspecified; R16.1 Splenomegaly, not elsewhere classified; K57.90 Diverticulosis of intestine, part unspecified, without perforation or abscess without bleeding
CPT/HCPCS: 71260; 74177; Q9967

== ENCOUNTER → 2019-09-19 11:40 | Outpatient (CLI) | payer MEDICARE, OTHER, SELFPAY ==
--- NOTE | 2019-09-19 11:41 | DI.US.S_ITS ---
PROCEDURE: US ABDOMEN COMPLETE INDICATIONS: MYELOFIBROSIS, SPLENOMEGALY TECHNIQUE: Real-time scanning was performed of the abdominal and retroperitoneal organs, with image documentation. COMPARISON: [facility], CT, CT CHEST ABD PEL W CON, 07/02/2019, 13:02. FINDINGS: Liver: The liver is normal in size. There is a calcification identified involving the lateral segment of the left hepatic lobe that measures 8 mm in diameter. No focal liver lesions are evident. Gallbladder: The gallbladder is within normal limits without cholelithiasis or evidence of gallbladder wall inflammation. Biliary ducts: Intrahepatic bile ducts are non-dilated. Extrahepatic bile duct caliber measures 5 mm. Normal is 6-7 mm or less in diameter, or 10 mm or less post-cholecystectomy. Pancreas: Visualized portions of the pancreas are sonographically normal. Spleen: The spleen is markedly enlarged measures up to 21 cm in length. No definite splenic lesions are evident. Kidneys: Kidneys are normal in size and echotexture. Right kidney measures 9.9 cm long; left kidney measures 10.5 cm long. No hydronephrosis or nephrolithiasis. No solid masses. Aorta: Visualized aorta is normal in caliber at less than 3 cm. Iliacs: Obscured by bowel gas.. IVC: Intrahepatic inferior vena cava is patent. Miscellaneous: No free abdominal fluid. IMPRESSION: 1. Prominent splenomegaly. 2. No cholelithiasis or evidence of acute cholecystitis. 3. No hydronephrosis or shadowing nephrolithiasis. Dictated by: Shaq Palacios M.D. on 09/19/2019 at 11:56 Approved by: Shaq Palacios M.D. on 09/19/2019 at 12:00
== END ==
PROVIDERS: PCP Family Medicine; Visit Provider Internal Medicine Hematology & Oncology
DX: D47.1 Chronic myeloproliferative disease (principal); R16.1 Splenomegaly, not elsewhere classified
CPT/HCPCS: 76700

== ENCOUNTER → 2019-09-25 08:28 | Outpatient (CLI) | payer MEDICARE, OTHER, SELFPAY ==
[2019-09-25 08:49] LABS: Hematocrit 30.9 % (41-53); Hemoglobin 10.3 g/dL (13.5-17.5); Mean Corpuscular HGB Conc 33.4 % (30-36); Mean Corpuscular Hemoglobin 27.8 PG (26-34); Mean Corpuscular Volume 83.2 fL (80-100); Platelet Count 66 X10^3/uL (150-400); Red Blood Cell Count 3.72 X10^6/uL (4.5-5.9); Red Cell Distribution Width 18.9 % (11.6-14.8)
[2019-09-25 08:51] LABS: Add Manual Diff / Slide Review YES; White Blood Cell Count 42.2 X10^3/uL (4.5-11.0)
[2019-09-25 09:32] LABS: Neutrophils Absolute Manual 21944 /uL (3000-5900); Nucleated Red Blood Cells 1 #/Diff; Total Cells Counted 100
[2019-09-25 09:35] LABS: Anisocytosis 2+; Tear Drop Cells 1+
[2019-09-25 09:36] LABS: Polychromasia 1+
== END ==
PROVIDERS: PCP Family Medicine; Visit Provider Internal Medicine Hematology & Oncology
DX: D47.1 Chronic myeloproliferative disease (principal)
CPT/HCPCS: 36415; 85025

== ENCOUNTER → 2019-11-03 08:25 | Outpatient (CLI) | payer MEDICARE, OTHER, SELFPAY ==
[2019-11-03 09:02] LABS: Hemoglobin 9.9 g/dL (13.5-17.5); Mean Corpuscular HGB Conc 33.2 % (30-36); Mean Corpuscular Hemoglobin 29.2 PG (26-34); Mean Corpuscular Volume 87.9 fL (80-100); Platelet Count 59 X10^3/uL (150-400); Red Blood Cell Count 3.41 X10^6/uL (4.5-5.9); Red Cell Distribution Width 22.6 % (11.6-14.8); White Blood Cell Count 11.6 X10^3/uL (4.5-11.0)
[2019-11-03 09:04] LABS: Add Manual Diff / Slide Review YES
[2019-11-03 09:14] LABS: Alanine Aminotransferase 15 IU/L (<50); Albumin 4.5 g/dL (3.5-5.0); Albumin Globulin Ratio 1.4 (1.0-2.8); Alkaline Phosphatase 49 U/L (38-126); Aspartate Aminotransferase 28 IU/L (17-59); BUN Creatinine Ratio 13.3 (6-22); Bilirubin Total 0.8 mg/dL (0.2-1.3); Blood Urea Nitrogen 20 mg/dL (9-20); Calcium 9.2 mg/dL (8.4-10.2); Carbon Dioxide 28 mmol/L (22-32); Chloride 103 mmol/L (98-107); Estimated Glomerular Filt Rate 46.3 mL/min (>60); Globulin 3.3 g/dL (1.7-4.1); Glucose 75 mg/dL (80-110); HEMOLYSIS < 15 (0-50); Potassium 4.4 mmol/L (3.4-5.1); Sodium 140 mmol/L (137-145); Total Protein 7.8 g/dL (6.3-8.2)
[2019-11-03 09:34] LABS: Neutrophils Absolute Manual 3828 /uL (3000-5900); Nucleated Red Blood Cells 4 #/Diff; Total Cells Counted 100
[2019-11-03 09:37] LABS: Anisocytosis 3+
[2019-11-03 09:38] LABS: Platelet Estimate Decreased on smear
[2019-11-03 09:39] LABS: Hypochromasia 1+; Poikilocytosis 1+
== END ==
PROVIDERS: PCP Family Medicine; Visit Provider Internal Medicine Hematology & Oncology
DX: D47.1 Chronic myeloproliferative disease (principal)
CPT/HCPCS: 36415; 80053; 85025

== ENCOUNTER → 2019-12-17 11:44 | Outpatient (CLI) | payer MEDICARE, OTHER, SELFPAY ==
--- NOTE | 2019-12-17 11:55 | DI.US.S_ITS ---
PROCEDURE: US ABDOMEN LIMITED INDICATIONS: MYLEFIBROSIS TECHNIQUE: Real-time scanning was performed of the abdominal and retroperitoneal organs, with image documentation. COMPARISON: [facility], CT, PE STUDY (CTA CHEST), 12/01/2016, 10:59. [facility], CT, CT CHEST ABD PEL W CON, 07/02/2019, 13:02. [facility], US, US ABDOMEN LIMITED, 05/27/2019, 8:55. [facility], US, US ABDOMEN LIMITED, 02/14/2019, 7:55. FINDINGS: Liver: Liver is normal in size at 16.9 cm craniocaudad and homogeneous in echotexture except for the presence of several small calcifications, the largest of which measures up to 1.1 x 0.8 x 0.9 cm of the left hepatic lobe. Note is made of an eccentric turbulence within the intrahepatic IVC, which does not represent a mass, and can be seen on prior CT scanning from 07/02/19 to likely reflect inflow turbulence related to the nearby insertion of the right and left renal veins. Gallbladder: Partially contracted. No inflammation. Biliary ducts: Intrahepatic bile ducts are non-dilated. Extrahepatic bile duct caliber measures 5 mm. Normal is 6-7 mm or less in diameter, or 10 mm or less post-cholecystectomy. Pancreas: Visualized portions of the pancreas are sonographically normal. Spleen: Spleen is globally enlarged in size and homogeneous in echotexture, with the overall splenic volume calculated at 801 cc, previously 1185 cc 09/19/19. It measures up to 18.2 cm craniocaudad. IVC: Intrahepatic inferior vena cava is patent with what appears to be turbulence artifact within the intrahepatic IVC above the level of the renal vein insertion.. Miscellaneous: No free abdominal fluid. IMPRESSION: Splenomegaly, measuring up to 8 and 1 cc, but mildly improved from the comparison study in September of 2019 on the overall splenic volume and measured 1185 cc. Hepatic size is normal, incidental note is made of a 1 cm left hepatic lobe calcification as an incidental finding. This has been previously present without significant exchange operator time. Dictated by: Brenden Nolan M.D. on 12/17/2019 at 15:45 Approved by: Brenden Nolan M.D. on 12/17/2019 at 15:51
[2019-12-17 12:46] LABS: Hematocrit 30.1 % (41-53); Hemoglobin 10.3 g/dL (13.5-17.5); Mean Corpuscular HGB Conc 34.2 % (30-36); Mean Corpuscular Hemoglobin 32.9 PG (26-34); Mean Corpuscular Volume 96.3 fL (80-100); Red Blood Cell Count 3.13 X10^6/uL (4.5-5.9); Red Cell Distribution Width 26.2 % (11.6-14.8); White Blood Cell Count 10.8 X10^3/uL (4.5-11.0)
[2019-12-17 12:48] LABS: Add Manual Diff / Slide Review YES; Platelet Count 27 X10^3/uL (150-400)
[2019-12-17 13:16] LABS: Neutrophils Absolute Manual 5400 /uL (3000-5900); Total Cells Counted 100
[2019-12-17 13:18] LABS: Anisocytosis 3+; Polychromasia 1+
[2019-12-17 13:19] LABS: Tear Drop Cells 2+
== END ==
PROVIDERS: PCP Family Medicine; Visit Provider Internal Medicine Hematology & Oncology
DX: D47.1 Chronic myeloproliferative disease (principal); R16.1 Splenomegaly, not elsewhere classified
CPT/HCPCS: 36415; 76705; 85025

== ENCOUNTER → 2020-01-27 08:25 | Outpatient (CLI) | payer MEDICARE, OTHER, SELFPAY ==
[2020-01-27 08:50] LABS: Hematocrit 32.1 % (41-53); Hemoglobin 10.5 g/dL (13.5-17.5); Mean Corpuscular HGB Conc 32.7 % (30-36); Mean Corpuscular Hemoglobin 31.6 PG (26-34); Mean Corpuscular Volume 96.4 fL (80-100); Red Blood Cell Count 3.33 X10^6/uL (4.5-5.9); Red Cell Distribution Width 20.3 % (11.6-14.8); White Blood Cell Count 13.8 X10^3/uL (4.5-11.0)
[2020-01-27 08:51] LABS: Add Manual Diff / Slide Review YES; Platelet Count 36 X10^3/uL (150-400)
[2020-01-27 09:19] LABS: Anisocytosis 2+; Neutrophils Absolute Manual 8970 /uL (3000-5900); Nucleated Red Blood Cells 1 #/Diff; Poikilocytosis 1+; Polychromasia 1+; Total Cells Counted 100
== END ==
PROVIDERS: Internal Medicine Hematology & Oncology; PCP Family Medicine; Referring Provider Family Medicine; Visit Provider Family Medicine
DX: D47.1 Chronic myeloproliferative disease (principal)
CPT/HCPCS: 36415; 85025

== ENCOUNTER → 2020-02-03 07:58 | Outpatient (CLI) | payer MEDICARE, OTHER, SELFPAY ==
[2020-02-03 08:13] LABS: Add Manual Diff / Slide Review YES; Hematocrit 32.1 % (41-53); Hemoglobin 10.5 g/dL (13.5-17.5); Mean Corpuscular HGB Conc 32.7 % (30-36); Mean Corpuscular Hemoglobin 31.7 PG (26-34); Mean Corpuscular Volume 96.7 fL (80-100); Platelet Count 46 X10^3/uL (150-400); Red Blood Cell Count 3.32 X10^6/uL (4.5-5.9); Red Cell Distribution Width 19.9 % (11.6-14.8)
[2020-02-03 08:26] LABS: Alanine Aminotransferase 18 IU/L (<50); Albumin 4.4 g/dL (3.5-5.0); Albumin Globulin Ratio 1.1 (1.0-2.8); Alkaline Phosphatase 49 U/L (38-126); Aspartate Aminotransferase 40 IU/L (17-59); BUN Creatinine Ratio 12.7 (6-22); Bilirubin Total 0.8 mg/dL (0.2-1.3); Blood Urea Nitrogen 22 mg/dL (9-20); Calcium 9.2 mg/dL (8.4-10.2); Carbon Dioxide 27 mmol/L (22-32); Chloride 103 mmol/L (98-107); Estimated Glomerular Filt Rate 39.2 mL/min (>60); Glucose 79 mg/dL (80-110); HEMOLYSIS < 15 (0-50); Lactate Dehydrogenase 1199 U/L (313-618); Potassium 4.5 mmol/L (3.4-5.1); Sodium 138 mmol/L (137-145); Total Protein 8.4 g/dL (6.3-8.2)
[2020-02-03 08:31] LABS: Anisocytosis 2+; Neutrophils Absolute Manual 7740 /uL (3000-5900); Total Cells Counted 100
== END ==
PROVIDERS: PCP Family Medicine; Referring Provider Internal Medicine Hematology & Oncology; Visit Provider Internal Medicine Hematology & Oncology
DX: D47.1 Chronic myeloproliferative disease (principal)
CPT/HCPCS: 36415; 80053; 83615; 85025

== ENCOUNTER → 2020-03-01 08:25 | Outpatient (CLI) | payer MEDICARE, OTHER, SELFPAY ==
[2020-03-01 08:54] LABS: Hematocrit 30.3 % (41-53); Mean Corpuscular Hemoglobin 31.5 PG (26-34); Mean Corpuscular Volume 95.2 fL (80-100); Platelet Count 38 X10^3/uL (150-400); Red Blood Cell Count 3.18 X10^6/uL (4.5-5.9); Red Cell Distribution Width 19.6 % (11.6-14.8); White Blood Cell Count 11.2 X10^3/uL (4.5-11.0)
[2020-03-01 09:05] LABS: Alanine Aminotransferase 15 IU/L (<50); Albumin 4.5 g/dL (3.5-5.0); Albumin Globulin Ratio 1.2 (1.0-2.8); Alkaline Phosphatase 40 U/L (38-126); Aspartate Aminotransferase 28 IU/L (17-59); BUN Creatinine Ratio 10.4 (6-22); Bilirubin Total 0.8 mg/dL (0.2-1.3); Blood Urea Nitrogen 17 mg/dL (9-20); Calcium 9.6 mg/dL (8.4-10.2); Carbon Dioxide 29 mmol/L (22-32); Chloride 100 mmol/L (98-107); Globulin 3.8 g/dL (1.7-4.1); Glucose 74 mg/dL (80-110); HEMOLYSIS < 15 (0-50); Potassium 4.6 mmol/L (3.4-5.1); Sodium 136 mmol/L (137-145); Total Protein 8.3 g/dL (6.3-8.2)
[2020-03-01 09:06] LABS: Add Manual Diff / Slide Review YES
[2020-03-01 09:24] LABS: Lactate Dehydrogenase 818 U/L (313-618)
[2020-03-01 09:31] LABS: Anisocytosis 2+; Neutrophils Absolute Manual 4368 /uL (3000-5900); Nucleated Red Blood Cells 2 #/Diff; Total Cells Counted 100
[2020-03-01 10:18] LABS: Cholesterol 157 mg/dL (140-199); HDL Cholesterol 37 mg/dL (40-60); LDL Cholesterol Calculated 70 mg/dL (<100); Triglycerides 251 mg/dL (35-150)
[2020-03-01 10:48] LABS: Thyroid Stimulating Hormone 4.34 uIU/mL (0.47-4.68)
[2020-03-01 10:50] LABS: Prostate Specific Antigen Scrn 0.415 ng/mL (0.1-4.0)
== END ==
PROVIDERS: PCP Family Medicine; Referring Provider Internal Medicine Hematology & Oncology; Visit Provider Internal Medicine Hematology & Oncology
DX: Z12.5 Encounter for screening for malignant neoplasm of prostate (principal); E03.9 Hypothyroidism, unspecified; N18.3 Chronic kidney disease, stage 3 (moderate); D47.1 Chronic myeloproliferative disease
CPT/HCPCS: 36415; 80053; 80061; 83615; 84443; 85025; G0103

== ENCOUNTER → 2020-03-09 07:56 | Outpatient (CLI) | payer MEDICARE, OTHER, SELFPAY ==
--- NOTE | 2020-03-09 08:00 | DI.US.S_ITS ---
PROCEDURE: US ABDOMEN LIMITED INDICATIONS: MYELOFIBROSIS TECHNIQUE: Real-time focused scanning was performed of the abdomen, with image documentation. COMPARISON: [facility], US, ABDOMEN COMPLETE, 05/03/2016, 7:28. [facility], US, US ABDOMEN LIMITED, 05/27/2019, 8:55. [facility], US, US ABDOMEN LIMITED, 02/14/2019, 7:55. [facility], US, US ABDOMEN LIMITED, 10/07/2018, 11:02. [facility], US, US ABDOMEN LIMITED, 05/20/2018, 13:12. [facility], US, ABDOMEN LIMITED, 12/03/2017, 9:45. [facility], US, ABDOMEN LIMITED, 10/01/2017, 8:23. [facility], US, ABDOMEN LIMITED, 05/07/2017, 9:06. [facility], CT, CT CHEST ABD PEL W CON, 07/02/2019, 13:02. [facility], US, US ABDOMEN COMPLETE, 09/19/2019, 12:08. [facility], US, US ABDOMEN LIMITED, 12/17/2019, 12:11. FINDINGS: The liver is normal in size and demonstrates no suspicious lesions. There is a stable 9 mm calcification seen within the left lobe. No findings of gallstones or sludge are seen. The gallbladder wall is not thickened, measuring 3 mm or less. No specific pericholecystic fluid is seen. The sonographic Edwards sign is negative. There is no biliary dilatation, the common bile duct measures 4 mm. No significant pancreatic abnormality is seen on these images. The spleen is enlarged, measuring up to 19.8 cm, with a calculated volume of 728 cc (previously 18.2 cm, with a calculated volume of 801 cc). The splenic vein is within normal limits. Negative for IVC thrombosis. IMPRESSION: Splenomegaly, as before. The spleen measures slightly longer on the current study than on the prior, yet the calculated volume is slightly less. Therefore, the spleen is not significantly changed in size. Dictated by: Gavin Bustamante M.D. on 03/09/2020 at 8:05 Approved by: Gavin Bustamante M.D. on 03/09/2020 at 8:09
== END ==
PROVIDERS: PCP Family Medicine; Referring Provider Internal Medicine Hematology & Oncology; Visit Provider Internal Medicine Hematology & Oncology
DX: D47.1 Chronic myeloproliferative disease (principal); R16.1 Splenomegaly, not elsewhere classified
CPT/HCPCS: 76705

== ENCOUNTER → 2020-03-17 08:26 | Outpatient (CLI) | payer MEDICARE, OTHER, SELFPAY ==
[2020-03-17 08:40] LABS: Add Manual Diff / Slide Review NO; Basophils Absolute Auto 400 /uL (0-100); Basophils Percent Auto 4.5 % (0-2); Eosinophils Absolute Auto 0 /uL (0-450); Eosinophils Percent Auto 0.5 % (2-4); Hematocrit 29.9 % (41-53); Hemoglobin 10.2 g/dL (13.5-17.5); Lymphocytes Absolute Auto 500 /uL (1100-4500); Lymphocytes Percent Auto 6.6 % (25-40); Mean Corpuscular HGB Conc 34.2 % (30-36); Mean Corpuscular Hemoglobin 32.1 PG (26-34); Mean Corpuscular Volume 93.9 fL (80-100); Monocytes Absolute Auto 1300 /uL (0-900); Monocytes Percent Auto 16.4 % (3-14); Neutrophils Absolute Auto 5700 /uL (1500-7000); Red Blood Cell Count 3.19 X10^6/uL (4.5-5.9); Red Cell Distribution Width 20.2 % (11.6-14.8)
[2020-03-17 09:13] LABS: Platelet Count 24 X10^3/uL (150-400)
[2020-03-17 09:14] LABS: Platelet Estimate Decreased on smear
== END ==
PROVIDERS: PCP Family Medicine; Referring Provider Internal Medicine Hematology & Oncology; Visit Provider Internal Medicine Hematology & Oncology
DX: D47.1 Chronic myeloproliferative disease (principal)
CPT/HCPCS: 36415; 85025

== ENCOUNTER 2020-03-17 08:48 | Emergency (ER) | payer MEDICARE, OTHER, SELFPAY ==
[2020-03-17] VITALS (7 sets, daily range): BP systolic 101–145; BP diastolic 52–75; PULSE 75–93; RESP 11–27; TEMP 36.9; O2SAT 96–98
--- NOTE | 2020-03-17 09:01 | ED_ITS ---
HPI - Weakness General Chief complaint: Weakness Stated complaint: nausea/fatigue x7 days Time Seen by Provider: 03/17/20 08:58 History of Present Illness HPI Narrative: CC: Nausea associated with fatigue x7 days. HPI: The patient is a 69-year-old male with a history of myelofibrosis for which she is being followed by . He states that he has developed of fatigue associated with anorexia and has not eaten in the last 2 days. He has had intense nausea. He denies any fall or injury recently to his head and denies any headache. He had a transient episode of pain in his right ear which radiated to his occiput. He denies ever being told that he had migraine headaches, trigeminal neuralgia, vasculitis, temporal arteritis. He has had no change in his vision or loss of vision no blind but from the eye. He states that he had hiccups for 3 days and then developed the headache with pain also radiating into his left temporomandibular joint. He has had no trauma. He is a former cigarette smoker drinks alcohol periodically and occasionally smokes marijuana. Periodically he has had a mild sore throat but no sinus drainage no nasal drainage chest pain cough shortness of breath. He denies any other joint aches. He has had intense nausea but no vomiting he has had some mild diarrhea but no melena or hematochezia. His last bowel movement was this morning which was a little bit loose but relatively normal. He denies any urinary symptoms frequency urgency. Related Data Previous Rx's Medication Instructions Recorded varicella-zoster [id number] (PF) 50 0.5 ml IM ONCE #1 each 08/25/19 mcg/0.5 mL IM susp, kit metronidazole 1 % topical gel 1 % TOPICAL DIRECTED #60 gram 09/16/19 levothyroxine 50 mcg tablet 100 mcg PO DAILY #60 tab 09/18/19 hydroxyurea [Hydrea] 500 mg PO DAILY #90 cap 10/13/19 allopurinol 300 mg tablet 300 mg PO QPM #90 tab 10/23/19 ruxolitinib [Jakafi] 25 mg PO BID #60 tab 11/10/19 colchicine 0.6 mg tablet See Rx Instructions .ROUTE 02/25/20 .COMPLEX #60 tablet metoclopramide HCl 10 mg tablet 10 mg PO TID PRN #30 tab 03/10/20 meclizine 25 mg PO TID PRN #15 tab 03/17/20 ondansetron HCl [Zofran] 4 mg PO Q6H PRN #10 tab 03/17/20 Allergies Allergy/AdvReac Type Severity Reaction Status Date / Time No Known Drug Allergies Allergy Verified 03/17/20 12:45 Review of Systems Review of Systems Narrative: Review of systems were all negative except for those mentioned in the history of present illness Patient History Medical History Asthma (Resolved) Gout (Acute) Hypothyroidism (Acute) Myelofibrosis (Chronic) Sinusitis (Acute) Splenomegaly (Acute) Surgical History No history of previous surgery (Resolved 04/01/13) Social History Smoking Status: Former smoker Smoking Status: Former smoker Exam Narrative Exam Narrative: PHYSICAL EXAM: CONSTITUTIONAL: Awake, Alert, Oriented, Coherent, Cooperative in NAD. Does not appear toxic or ill. slow to move. HEAD: AT/NC EENT: PERRL, FROM of eyes, no discharge, no nystagmus EARS:No drainage from the ears, NOSE:No epistaxis or nasal drainage MOUTH:Oral mucosa is moist and pink, posterior pharynx is without erythema or exudate. Tongue is stained brown. NECK: Supple, no obvious JVD, Trachea is midline without stridor, no palpable L N. SPINE: Palpationof the cervical, Thoracic, Lumbar or Sacral spine reveals no gross deformity or tenderness. No CVA tenderness. THORAX: No deformity, retractions, chest wall tenderness. LUNGS: Clear, symmetrical breath sounds without respiratory distress. HEART: Regular rhythm and rate there is a grade 1-2/6 systolic murmur over the lower left sternal border. ABDOMEN: Soft, non-tender, normal bowel sounds there is tenderness to palpation in the left upper quadrant with a palpable spleen.. LYMPHATIC: palpable spleen. EXTREMITIES: No edema, deformity, tenderness or cyanosis. SKIN: No rash, bruising, petechiae or purpura. NEURO: Awake, alert, oriented, conversive, cranial nerves II-XII are symmetrical , moves all 4 extremities and is ambulatory. Initial Vital Signs Initial Vital Signs: Vital Signs Temperature 98.5 F 03/17/20 09:08 Pulse Rate 87 03/17/20 09:08 Respiratory Rate 18 03/17/20 09:08 Blood Pressure 145/65 H 03/17/20 09:08 Pulse Oximetry 98 03/17/20 09:08 Course Course Course Narrative: 12:06 in the supine position the patient's oxygen saturation was 98 % heart rate 85 blood pressure 119/56 Sitting: Heart rate 89 oxygen saturation 100% blood pressure 104/53 Standing the patient's oxygen saturation is 95% blood pressure 101/52, HR93. The patient has orthostatic changes. 1218: The patient states that he does not feel dizzy and lightheaded at this time. He states that when he got up to walk he felt like his balance was off. He does not have any nystagmus. His tympanic membranes are intact bilaterally without any erythema or pathology. He was informed that his laboratory tests were sent [place] unchanged from before and I will discuss the patient with Dr. Carolina his trailer sections assembler/oncologist. He has been paged 13:11 Dr. Huang has not called back. The patient will be discharged home and placed on meclizine 25 mg t.i.d. p.r.n. and Zofran for nausea and vomiting. Orders Ordered: Discontinued Medications Sodium Chloride (Normal Saline 0.9%) 1,000 mls @ 1,000 mls/hr IV BOLUS ONE Stop: 03/17/20 10:15 Last Infusion: 03/17/20 11:53 Dose: 0 mls/hr Documented by: [email or web address] Admin: 03/17/20 10:12 Dose: 1,000 mls/hr Documented by: TANGELA Meclizine HCl (Antivert) 25 mg PO NOW ONE Stop: 03/17/20 12:21 Last Admin: 03/17/20 12:56 Dose: 25 mg Documented by: TANGELA Ondansetron HCl (Zofran) 4 mg IV NOW ONE Stop: 03/17/20 12:21 Last Admin: 03/17/20 12:56 Dose: 4 mg Documented by: TANGELA Vital Signs Vital signs: Vital Signs - 8 hr 03/17/20 10:00 03/17/20 11:00 03/17/20 11:22 Pulse Rate 84 85 Pulse Rate [Orthostatic Lying] 85 Pulse Rate [Orthostatic Sitting] 89 Pulse Rate [Orthostatic Standing] 93 H Respiratory Rate 27 H 24 Blood Pressure [Left Arm] 116/58 L 117/58 L Blood Pressure [Orthostatic Lying] 119/56 L Blood Pressure [Orthostatic Sitting] 104/53 L Blood Pressure [Orthostatic Standing] 101/52 L Pulse Oximetry 96 98 03/17/20 12:00 03/17/20 13:31 Pulse Rate 75 75 Pulse Rate [Orthostatic Lying] Pulse Rate [Orthostatic Sitting] Pulse Rate [Orthostatic Standing] Respiratory Rate 11 L 16 Blood Pressure [Left Arm] 111/75 114/54 L Blood Pressure [Orthostatic Lying] Blood Pressure [Orthostatic Sitting] Blood Pressure [Orthostatic Standing] Pulse Oximetry 97 97 MDM - Weakness Medical Records Attestation: I reviewed the patient's medical records. Lab Data Attestation: I reviewed the patient's lab results. Result diagrams: 03/17/20 09:44 Labs: Lab Results 03/17/20 03/17/20 03/17/20 Range/Units 09:44 09:44 09:44 ESR 57 H (0-15) MM/HR Sodium 133 L (137-145) mmol/L Potassium 4.2 (3.4-5.1) mmol/L Chloride 97 L (98-107) mmol/L Carbon Dioxide 21 L (22-32) mmol/L BUN 27 H (9-20) mg/dL Creatinine 1.65 H (0.66-1.25) mg/dL Estimated GFR 41.4 L (>60) mL/min BUN/Creatinine Ratio 16.4 (6-22) Glucose 117 H (80-110) mg/dL Calcium 9.3 (8.4-10.2) mg/dL Magnesium 2.0 (1.6-2.3) mg/dL Ferritin (18-464) ng/mL Total Bilirubin 1.2 (0.2-1.3) mg/dL AST 31 (17-59) IU/L ALT 12 (<50) IU/L Alkaline Phosphatase 41 (38-126) U/L Total Creatine Kinase 138 (55-170) U/L CK-MB (CK-2) 0.63 (<2.37) ng/mL CK-MB (CK-2) Rel Index 0.5 L (1.5-5.0) % Troponin I < 0.012 (0.01-0.034) ng/mL C-Reactive Protein (<1.0) mg/dL NT-Pro-B Natriuret Pep 106 (<125) pg/mL Total Protein 8.8 H (6.3-8.2) g/dL Albumin 5.0 (3.5-5.0) g/dL Globulin 3.8 (1.7-4.1) g/dL Albumin/Globulin Ratio 1.3 (1.0-2.8) TSH 3.09 D (0.47-4.68) uIU/mL Urine Color Urine Appearance Urine pH (4.5-8.0) Ur Specific [place] (1.000-1.035) Urine Protein (Negative) Urine Glucose (UA) (Negative) g/dL Urine Ketones (NEGATIVE) Urine Occult Blood (Negative) Urine Nitrate (Negative) Urine Bilirubin (NEGATIVE) Ur Bilirubin Confirm (Negative) Urine Urobilinogen (0.2) E.U./dL Ur Leukocyte Esterase (NEGATIVE) Urine RBC (0-5/HPF) Urine WBC (0-5/HPF) Ur Squamous Epith Cells (0-5/HPF) Ur Transition Epith Cell (0-5/HPF) Amorphous Sediment Urine Bacteria (None) Hyaline Casts (None) Granular Casts (None) Ur Culture Indicated? COVID-19 PCR (Not Detect) 03/17/20 03/17/20 03/17/20 Range/Units 09:44 09:44 09:44 ESR (0-15) MM/HR Sodium (137-145) mmol/L Potassium (3.4-5.1) mmol/L Chloride (98-107) mmol/L Carbon Dioxide (22-32) mmol/L BUN (9-20) mg/dL Creatinine (0.66-1.25) mg/dL Estimated GFR (>60) mL/min BUN/Creatinine Ratio (6-22) Glucose (80-110) mg/dL Calcium (8.4-10.2) mg/dL Magnesium (1.6-2.3) mg/dL Ferritin 140 (18-464) ng/mL Total Bilirubin (0.2-1.3) mg/dL AST (17-59) IU/L ALT (<50) IU/L Alkaline Phosphatase (38-126) U/L Total Creatine Kinase (55-170) U/L CK-MB (CK-2) (<2.37) ng/mL CK-MB (CK-2) Rel Index (1.5-5.0) % Troponin I (0.01-0.034) ng/mL C-Reactive Protein 1.2 H (<1.0) mg/dL NT-Pro-B Natriuret Pep (<125) pg/mL Total Protein (6.3-8.2) g/dL Albumin (3.5-5.0) g/dL Globulin (1.7-4.1) g/dL Albumin/Globulin Ratio (1.0-2.8) TSH (0.47-4.68) uIU/mL Urine Color Urine Appearance Urine pH (4.5-8.0) Ur Specific [place] (1.000-1.035) Urine Protein (Negative) Urine Glucose (UA) (Negative) g/dL Urine Ketones (NEGATIVE) Urine Occult Blood (Negative) Urine Nitrate (Negative) Urine Bilirubin (NEGATIVE) Ur Bilirubin Confirm (Negative) Urine Urobilinogen (0.2) E.U./dL Ur Leukocyte Esterase (NEGATIVE) Urine RBC (0-5/HPF) Urine WBC (0-5/HPF) Ur Squamous Epith Cells (0-5/HPF) Ur Transition Epith Cell (0-5/HPF) Amorphous Sediment Urine Bacteria (None) Hyaline Casts (None) Granular Casts (None) Ur Culture Indicated? COVID-19 PCR Not detected (Not Detect) 03/17/20 Range/Units 12:11 ESR (0-15) MM/HR Sodium (137-145) mmol/L Potassium (3.4-5.1) mmol/L Chloride (98-107) mmol/L Carbon Dioxide (22-32) mmol/L BUN (9-20) mg/dL Creatinine (0.66-1.25) mg/dL Estimated GFR (>60) mL/min BUN/Creatinine Ratio (6-22) Glucose (80-110) mg/dL Calcium (8.4-10.2) mg/dL Magnesium (1.6-2.3) mg/dL Ferritin (18-464) ng/mL Total Bilirubin (0.2-1.3) mg/dL AST (17-59) IU/L ALT (<50) IU/L Alkaline Phosphatase (38-126) U/L Total Creatine Kinase (55-170) U/L CK-MB (CK-2) (<2.37) ng/mL CK-MB (CK-2) Rel Index (1.5-5.0) % Troponin I (0.01-0.034) ng/mL C-Reactive Protein (<1.0) mg/dL NT-Pro-B Natriuret Pep (<125) pg/mL Total Protein (6.3-8.2) g/dL Albumin (3.5-5.0) g/dL Globulin (1.7-4.1) g/dL Albumin/Globulin Ratio (1.0-2.8) TSH (0.47-4.68) uIU/mL Urine Color Yellow Urine Appearance Clear Urine pH 5.0 (4.5-8.0) Ur Specific [place] 1.025 (1.000-1.035) Urine Protein 2+ H (Negative) Urine Glucose (UA) Negative (Negative) g/dL Urine Ketones 2+ H (NEGATIVE) Urine Occult Blood 3+ H (Negative) Urine Nitrate Negative (Negative) Urine Bilirubin 1+ H (NEGATIVE) Ur Bilirubin Confirm Positive H (Negative) Urine Urobilinogen 0.2 (0.2) E.U./dL Ur Leukocyte Esterase Negative (NEGATIVE) Urine RBC 1-5/hpf (0-5/HPF) Urine WBC 0-1/hpf (0-5/HPF) Ur Squamous Epith Cells 0-1 /hpf (0-5/HPF) Ur Transition Epith Cell 0-1/hpf (0-5/HPF) Amorphous Sediment 1+ Urine Bacteria Few (2-10) H (None) Hyaline Casts 1-5/lpf (None) Granular Casts 1-5/lpf (None) Ur Culture Indicated? Cult not indicated COVID-19 PCR (Not Detect) ABG Data Attestation: I personally reviewed and interpreted this ABG as follows: ECG Data Attestation: I personally reviewed and interpreted this ECG as follows: Interpretation: The patient's EKG obtained at 09:1 5:55 a.m. reveals a sinus rhythm with a ventricular rate of 83. He has a right bundle-branch block. Intervals are normal except for slightly prolonged QRS at 150 milliseconds. QTC is 419 milliseconds. [place] is normal. The patient has inverted T-waves in leads V1 and V2 with nonspecific ST segments throughout the rest of the EKG. There is no acute diagnostic ST segment changes. Discharge Plan Departure Patient Disposition: Home Clinical Impression: Thrombocytopenia, Splenomegaly, Weakness, Vertigo Fatigue Qualifiers: Fatigue type: unspecified Qualified Code(s): R53.83 - Other fatigue Nausea and vomiting Qualifiers: Vomiting type: unspecified Vomiting Intractability: non-intractable Qualified Code(s): R11.2 - Nausea with vomiting, unspecified Discharge Date/Time: 03/17/20 13:35 Instructions: DI for Syncope in Adults (Fainting), DI for Orthostatic Hypotension, DI for Dehydration -- Adult, DI for Fatigue, DI for Muscle Weakness Activity Restrictions/Additional Instructions: 1. Call and make a follow-up appointment with Dr. Carolina 2. If you developed a recurrent worsening headache associated with any changes in vision, dizziness, vertigo, you need to return to the emergency department. 3. If you develop progressive weakness fatigue associated with worsening shortness of breath, cough, racing of your heart palpitations, chest pain, uncontrolled nausea and vomiting you need to return to the emergency department. 4,. Take your medications as prescribed and follow-up with Dr. Carolina for re- evaluation. You need to be re-evaluated in 24-48 hours to make sure your improving and not getting worse. 5. Drink 2-3 L of fluid per day to keep herself well hydrated. Prescriptions: New meclizine 25 mg tablet 25 mg PO TID PRN (Reason: motion sickness) Qty: 15 RF: 0 ondansetron HCl [Zofran] 4 mg tablet 4 mg PO Q6H PRN (Reason: nausea and vomiting) Qty: 10 RF: 0 No Action Shingrix (PF) 50 mcg/0.5 mL suspension for reconstitution 0.5 ml IM ONCE Qty: 1 RF: 0 metronidazole [Metrogel] 1 % gel 1 % Topical DIRECTED Qty: 60 RF: 0 levothyroxine [Synthroid] 50 mcg tablet 100 mcg PO DAILY Qty: 60 RF: 3 allopurinol 300 mg tablet 300 mg PO QPM Qty: 90 RF: 2 colchicine 0.6 mg tablet See Rx Instructions .ROUTE .COMPLEX Qty: 60 RF: 0 metoclopramide HCl 10 mg tablet 10 mg PO TID PRN (Reason: hiccups) Qty: 30 RF: 0 hydroxyurea [Hydrea] 500 mg Capsule 500 mg PO DAILY Qty: 90 RF: 2 Jakafi 25 mg Tablet 25 mg PO BID Qty: 60 RF: 5 Referrals: Amol Riggins MD [Primary Care Provider] -
--- NOTE | 2020-03-17 09:13 | DI.RAD.S_ITS ---
PROCEDURE: XR CHEST 2V INDICATIONS: weakness and fatigue TECHNIQUE: 2 views of the chest were acquired. COMPARISON: [facility], GABRIELLE, XR CHEST 2V, 06/24/2019, 17:14. [facility], GABRIELLE, CHEST 1 VIEW, 06/09/2015, 7:35. FINDINGS: Surgical changes and devices: None. Lungs and pleura: Lungs appear clear. Small pulmonary nodule seen on prior CT 07/02/2019 are not appreciated likely due to their small size. No pleural effusions or pneumothorax. Mediastinum: Mediastinal contours are normal and unchanged. Heart size is normal. Bones and chest wall: No suspicious bony abnormalities. Soft tissues appear unremarkable. IMPRESSION: No acute cardiopulmonary abnormality. Dictated by: Jose Carlos Disla M.D. on 03/17/2020 at 9:31 Approved by: Jose Carlos Disla M.D. on 03/17/2020 at 9:35
[2020-03-17] MEDS: SODIUM CHLORIDE 0.9% 1,000 ML 1000 ML IV (10:12)
[2020-03-17 10:15] LABS: Alanine Aminotransferase 12 IU/L (<50); Albumin Globulin Ratio 1.3 (1.0-2.8); Alkaline Phosphatase 41 U/L (38-126); Aspartate Aminotransferase 31 IU/L (17-59); BUN Creatinine Ratio 16.4 (6-22); Bilirubin Total 1.2 mg/dL (0.2-1.3); Blood Urea Nitrogen 27 mg/dL (9-20); Calcium 9.3 mg/dL (8.4-10.2); Carbon Dioxide 21 mmol/L (22-32); Chloride 97 mmol/L (98-107); Creatine Kinase 138 U/L (55-170); Estimated Glomerular Filt Rate 41.4 mL/min (>60); Globulin 3.8 g/dL (1.7-4.1); Glucose 117 mg/dL (80-110); HEMOLYSIS < 15 (0-50); Potassium 4.2 mmol/L (3.4-5.1); Sodium 133 mmol/L (137-145); Total Protein 8.8 g/dL (6.3-8.2)
[2020-03-17 10:19] LABS: C-Reactive Protein Quant 1.2 mg/dL (<1.0)
[2020-03-17 10:24] LABS: Erythrocyte Sedimentation Rate 57 MM/HR (0-15)
[2020-03-17 10:27] LABS: NT-proBNP (BNP-Adult 18+) 106 pg/mL (<125); Troponin I < 0.012 ng/mL (0.01-0.034)
[2020-03-17 10:30] LABS: CKMB % Relative Index 0.5 % (1.5-5.0); Creatine Kinase MB 0.63 ng/mL (<2.37)
[2020-03-17 10:50] LABS: Ferritin 140 ng/mL (18-464)
[2020-03-17 10:56] LABS: Thyroid Stimulating Hormone 3.09 uIU/mL (0.47-4.68)
[2020-03-17 12:44] LABS: Appearance Urine UA CLEAR; Bilirubin Urine UA 1+ (NEGATIVE); Color Urine UA YELLOW; Glucose Urine UA NEGATIVE (Negative); Ketones Urine UA 2+ (NEGATIVE); Leukocyte Esterase Urine UA NEGATIVE (NEGATIVE); Nitrite Urine UA NEGATIVE (Negative); Occult Blood Urine UA 3+ (Negative); Protein Urine UA 2+ (Negative); Specific Gravity Urine UA 1.025 (1.000-1.035); Urobilinogen Urine UA 0.2 E.U./dL (0.2)
[2020-03-17] MEDS: MECLIZINE HCL 12.5 MG TABLET 25 MG PO (12:56)
[2020-03-17] MEDS: ONDANSETRON 4 MG/2 ML INJ IV (12:56)
[2020-03-17 13:07] LABS: RBC Urine 1-5/HPF (0-5/HPF); Squamous Epithelial Cell Urine 0-1 /HPF (0-5/HPF); Transitional Epi Cells Urine 0-1/HPF (0-5/HPF); WBC Urine 0-1/HPF (0-5/HPF)
[2020-03-17 13:08] LABS: Amorphous Sediment Urine 1+; Bacteria Urine Few (2-10); Culture Indicated Urine Cult Not Indicated; Granular Casts Urine 1-5/LPF; Hyaline Casts Urine 1-5/LPF
[2020-03-17 13:11] LABS: Ictotest Urine Positive (Negative)
[2020-03-17 20:19] LABS: COVID19 Sendout Not Detected (Not Detect)
== END 2020-03-17 13:35 | disposition home or self-care (01) ==
PROVIDERS: Emergency Provider Emergency Medicine; PCP Family Medicine
DX: D69.6 Thrombocytopenia, unspecified (principal); R16.1 Splenomegaly, not elsewhere classified; R53.1 Weakness; R42 Dizziness and giddiness; R53.83 Other fatigue; R11.2 Nausea with vomiting, unspecified
CPT/HCPCS: 36415; 71046; 80053; 81001; 82550; 82553; 82728; 83735; 83880; 84443; 84484; 85025; 85651; 86140; 87635; 93005; 96361; 96374; 99285; J2405

== ENCOUNTER 2020-03-19 08:26 | Emergency (ER) | payer MEDICARE, OTHER, SELFPAY ==
[2020-03-19] VITALS (25 sets, daily range): BP systolic 94–131; BP diastolic 50–58; PULSE 62–77; RESP 20–29; TEMP 36.6–39.5; O2SAT 95–99; BMI 24.1
--- NOTE | 2020-03-19 08:36 | ED_ITS ---
HPI - Weakness General Chief complaint: Weakness Stated complaint: Fatigue, nausea, hasn't eaten in a week Time Seen by Provider: 03/19/20 08:34 Source: patient, family and old records reviewed Mode of arrival: Wheelchair Limitations: no limitations History of Present Illness HPI Narrative: This is a 69-year-old male who comes to the emergency department with complaint of no food intake over the past week nausea. He was seen 03/17 in the ER for similar symptoms but has been worsening. Weakness and feeling gener ally unwell. He has not had any falls. Patient has not had any fevers. He was complaining of some pain in his left ear that would sometimes radiate to his head. He continues to have these headaches intermittently. He does not describes them as severe. Patient has not had any speech changes. He has had some generalized weakness but no localized or lateralized weakness. Patient has felt a little bit off balance. He has not had any vision changes. He has not had any chest pain he denies any shortness of breath. He denies any abdominal pain he has been nauseated but has not been vomiting. He had 1 episode of diarrhea last night which was not black or bloody. He has not had any decrease in urine output or noted that his urine is dark, no frequency dysuria urgency. Patient does have a known myeloproliferative disorder, he is on Jakafi and hydroxyurea and has been discussed with the oncologist that he may need to stop Jakafi and try a new medication in the near future. He has also on thyroid medication. No prior cardiac history, no prior TIAs or strokes. Patient denies any prior surgeries. He follows with Dr. Carolina for oncology and Dr. Riggins as his primary care physician. Related Data Previous Rx's Medication Instructions Recorded varicella-zoster [id number] (PF) 50 0.5 ml IM ONCE #1 each 08/25/19 mcg/0.5 mL IM susp, kit metronidazole 1 % topical gel 1 % TOPICAL DIRECTED #60 gram 09/16/19 levothyroxine 50 mcg tablet 100 mcg PO DAILY #60 tab 09/18/19 hydroxyurea [Hydrea] 500 mg PO DAILY #90 cap 10/13/19 allopurinol 300 mg tablet 300 mg PO QPM #90 tab 10/23/19 ruxolitinib [Jakafi] 25 mg PO BID #60 tab 11/10/19 colchicine 0.6 mg tablet See Rx Instructions .ROUTE 02/25/20 .COMPLEX #60 tablet metoclopramide HCl 10 mg tablet 10 mg PO TID PRN #30 tab 03/10/20 meclizine 25 mg PO TID PRN #15 tab 03/17/20 ondansetron HCl [Zofran] 4 mg PO Q6H PRN #10 tab 03/17/20 Allergies Allergy/AdvReac Type Severity Reaction Status Date / Time No Known Drug Allergies Allergy Verified 03/17/20 12:45 Review of Systems Review of Systems ROS Unobtainable: All systems reviewed & are unremarkable except as noted in HPI and below Patient History Medical History Asthma (Resolved) Gout (Acute) Hypothyroidism (Acute) Myelofibrosis (Chronic) Sinusitis (Acute) Splenomegaly (Acute) Surgical History No history of previous surgery (Resolved 04/01/13) Social History Smoking Status: Former smoker Smoking Status: Former smoker alcohol intake frequency: 0-2 drinks per day Substance Use Type: does not use Exam Narrative Exam Narrative: GEN: well nourished, well appearing male, alert and oriented, patient appears to be in mild distress. Patient answers questions appropriately but does appear weak. HEENT: Atraumatic, pupils are equal round reactive to light, extraocular movements are intact, nares are clear, TMs are clear with no fluid, there is no conjunctival pallor. Throat is clear without any exudates, erythema, tonsillar enlargement or uvular deviation, no facial droop. HEART: Regular rate and rhythm without murmur, clicks, rubs. Pulses are equal in upper and lower extremities LUNGS:Lungs clear to auscultation, no wheezes, rales, crackles, chest moves symmetrically, no tachypnea accessory muscle use ABD:bowel sounds normal, soft, non-tender, no guarding, rebound, rigidity, no masses noted, no hepatosplenomegaly :No CVA tenderness MSCL: Non-tender, full range of motion, gait not tested secondary to weakness. NEURO:CN 2-12 intact, sensation normal. SKIN: patient has several small areas of ecchymosis on bilateral forearms. Initial Vital Signs Initial Vital Signs: Vital Signs Temperature 98.5 F 03/19/20 08:46 Pulse Rate 64 03/19/20 08:46 Respiratory Rate 20 03/19/20 08:46 Blood Pressure 108/50 L 03/19/20 08:46 Pulse Oximetry 97 03/19/20 08:46 Course Orders Ordered: ED Orders 03/19/20 12:18 Packed Cells Stat Platelets Stat Type and Screen Stat 03/19/20 13:45 Lactate (Lactic Acid) Stat 03/19/20 13:48 Blood Culture Stat 03/19/20 18:40 Ictotest Urine Stat Urinalysis and Microscopic Stat Discontinued Medications Acetaminophen (Tylenol) 975 mg PO NOW ONE Stop: 03/19/20 13:38 Last Admin: 03/19/20 13:54 Dose: 975 mg Documented by: KATHIE Sodium Chloride (Normal Saline 0.9%) 1,000 mls @ 1,000 mls/hr IV BOLUS ONE Stop: 03/19/20 09:53 Last Admin: 03/19/20 09:08 Dose: 1,000 mls/hr Documented by: GIOVANY Ibuprofen (Advil) 800 mg PO NOW ONE Stop: 03/19/20 14:52 Last Admin: 03/19/20 14:56 Dose: 800 mg Documented by: GIOVANY Ondansetron HCl (Zofran) 4 mg IV NOW ONE Stop: 03/19/20 08:55 Last Admin: 03/19/20 09:09 Dose: 4 mg Documented by: GIOVANY Ondansetron HCl (Zofran) 4 mg IV NOW ONE Stop: 03/19/20 17:42 Last Admin: 03/19/20 17:45 Dose: 4 mg Documented by: GIOVANY Vital Signs Vital signs: Vital Signs - 8 hr 03/19/20 11:39 03/19/20 12:09 03/19/20 12:42 Temperature Pulse Rate 77 70 69 Respiratory Rate 20 25 H 29 H Blood Pressure Blood Pressure [Right Arm] 113/53 L 115/58 L 111/56 L Pulse Oximetry 99 98 97 03/19/20 13:23 03/19/20 13:36 03/19/20 13:37 Temperature 103.1 F H 103.1 F H Pulse Rate 72 72 Respiratory Rate 23 25 H Blood Pressure 118/56 L Blood Pressure [Right Arm] 115/58 L Pulse Oximetry 96 03/19/20 13:52 03/19/20 13:54 03/19/20 14:09 Temperature 103.1 F H 103.1 F H Pulse Rate 76 71 Respiratory Rate 26 H 20 Blood Pressure 131/55 L 122/58 L Blood Pressure [Right Arm] Pulse Oximetry 03/19/20 14:11 03/19/20 14:30 03/19/20 14:34 Temperature 102.7 F H 100 F H Pulse Rate 72 72 Respiratory Rate 28 H 25 H Blood Pressure 105/55 L Blood Pressure [Right Arm] 105/55 L Pulse Oximetry 97 03/19/20 14:45 03/19/20 15:00 03/19/20 15:15 Temperature Pulse Rate 69 77 65 Respiratory Rate 20 28 H 25 H Blood Pressure 94/51 L Blood Pressure [Right Arm] 115/54 L 99/54 L Pulse Oximetry 95 97 03/19/20 15:30 03/19/20 15:57 03/19/20 16:01 Temperature 97.8 F 98.7 F Pulse Rate 65 65 64 Respiratory Rate 24 25 H 22 Blood Pressure 101/53 L 100/55 L 100/55 L Blood Pressure [Right Arm] Pulse Oximetry 03/19/20 16:04 03/19/20 16:19 03/19/20 16:32 Temperature 98.7 F 99.6 F Pulse Rate 64 62 63 Respiratory Rate 23 20 23 Blood Pressure 94/51 L 94/50 L Blood Pressure [Right Arm] 99/51 L Pulse Oximetry 96 03/19/20 17:05 03/19/20 17:48 Temperature 98.4 F Pulse Rate 69 68 Respiratory Rate 22 20 Blood Pressure 99/56 L Blood Pressure [Right Arm] 106/52 L Pulse Oximetry 96 MDM - Weakness Lab Data Attestation: I reviewed the patient's lab results. Result diagrams: 03/19/20 09:00 03/19/20 09:00 Labs: Lab Results 03/19/20 03/19/20 03/19/20 Range/Units 09:00 09:00 09:00 WBC 5.6 (4.5-11.0) X10^3/uL RBC 2.58 L (4.5-5.9) X10^6/uL Hgb 8.2 L (13.5-17.5) g/dL Hct 24.1 L (41-53) % MCV 93.4 (80-100) fL MCH 31.7 (26-34) PG MCHC 33.9 (30-36) % RDW 19.7 H (11.6-14.8) % Plt Count 22 L* (150-400) X10^3/uL Neut % (Auto) Not Reportable Lymph % (Auto) Not Reportable [place] % (Auto) Not Reportable Eos % (Auto) Not Reportable Baso % (Auto) Not Reportable Lymph # (Auto) Not Reportable [place] # (Auto) Not Reportable Baso # (Auto) Not Reportable Total Counted 100 Seg Neutrophils % 14.0 L (38-70) % Band Neutrophils % 42.0 H (3-7) % Lymphocytes % (Manual) 4.0 L (25-45) % Monocytes % (Manual) 16.0 H (2-11) % Eosinophils % (Manual) 1.0 L (2-4) % Basophils % (Manual) 2.0 H (0-1) % Metamyelocytes % 6.0 H (-0) % Myelocytes % 12.0 H (-0) % Promyelocytes % 1.0 H (-0) % Blast Cells % 2.0 H (-0) % Neutrophils # (Manual) 3136 (1982-3047) /uL Toxic Vacuolation Pres Dohle Bodies 1+ H Platelet Estimate Decreased on smear RBC Morphology See below Polychromasia 1+ H Basophilic Stippling 1+ H Anisocytosis 1+ H PT 16.6 H (10.1-12.7) SECONDS INR 1.5 H (0.9-1.3) APTT 32 D (26.4-36.2) SECONDS Sodium 130 L (137-145) mmol/L Potassium 4.0 (3.4-5.1) mmol/L Chloride 95 L (98-107) mmol/L Carbon Dioxide 24 (22-32) mmol/L BUN 28 H (9-20) mg/dL Creatinine 1.81 H (0.66-1.25) mg/dL Estimated GFR 37.2 L (>60) mL/min BUN/Creatinine Ratio 15.5 (6-22) Glucose 110 (80-110) mg/dL Lactate (0.7-2.1) mmol/L Calcium 8.5 (8.4-10.2) mg/dL Total Bilirubin 0.9 (0.2-1.3) mg/dL AST 31 (17-59) IU/L ALT 15 (<50) IU/L Alkaline Phosphatase 36 L (38-126) U/L Total Creatine Kinase (55-170) U/L CK-MB (CK-2) (<2.37) ng/mL CK-MB (CK-2) Rel Index (1.5-5.0) % Troponin I (0.01-0.034) ng/mL Total Protein 8.0 (6.3-8.2) g/dL Albumin 4.2 (3.5-5.0) g/dL Globulin 3.8 (1.7-4.1) g/dL Albumin/Globulin Ratio 1.1 (1.0-2.8) Lipase 76 (23-300) U/L Procalcitonin (<0.5) ng/mL Urine Color Urine Appearance Urine pH (4.5-8.0) Ur Specific [place] (1.000-1.035) Urine Protein (Negative) Urine Glucose (UA) (Negative) g/dL Urine Ketones (NEGATIVE) Urine Occult Blood (Negative) Urine Nitrate (Negative) Urine Bilirubin (NEGATIVE) Ur Bilirubin Confirm (Negative) Urine Urobilinogen (0.2) E.U./dL Ur Leukocyte Esterase (NEGATIVE) Urine RBC (0-5/HPF) Urine WBC (0-5/HPF) Ur Squamous Epith Cells (0-5/HPF) Amorphous Sediment Urine Bacteria (None) Granular Casts (None) Urine Mucus (Negative) Ur Culture Indicated? Blood Type Antibody Screen Crossmatch 03/19/20 03/19/20 03/19/20 Range/Units 09:00 09:00 12:18 WBC (4.5-11.0) X10^3/uL RBC (4.5-5.9) X10^6/uL Hgb (13.5-17.5) g/dL Hct (41-53) % MCV (80-100) fL MCH (26-34) PG MCHC (30-36) % RDW (11.6-14.8) % Plt Count (150-400) X10^3/uL Neut % (Auto) Lymph % (Auto) [place] % (Auto) Eos % (Auto) Baso % (Auto) Lymph # (Auto) [place] # (Auto) Baso # (Auto) Total Counted Seg Neutrophils % (38-70) % Band Neutrophils % (3-7) % Lymphocytes % (Manual) (25-45) % Monocytes % (Manual) (2-11) % Eosinophils % (Manual) (2-4) % Basophils % (Manual) (0-1) % Metamyelocytes % (-0) % Myelocytes % (-0) % Promyelocytes % (-0) % Blast Cells % (-0) % Neutrophils # (Manual) (8868-4947) /uL Toxic Vacuolation Dohle Bodies Platelet Estimate RBC Morphology Polychromasia Basophilic Stippling Anisocytosis PT (10.1-12.7) SECONDS INR (0.9-1.3) APTT (26.4-36.2) SECONDS Sodium (137-145) mmol/L Potassium (3.4-5.1) mmol/L Chloride (98-107) mmol/L Carbon Dioxide (22-32) mmol/L BUN (9-20) mg/dL Creatinine (0.66-1.25) mg/dL Estimated GFR (>60) mL/min BUN/Creatinine Ratio (6-22) Glucose (80-110) mg/dL Lactate (0.7-2.1) mmol/L Calcium (8.4-10.2) mg/dL Total Bilirubin (0.2-1.3) mg/dL AST (17-59) IU/L ALT (<50) IU/L Alkaline Phosphatase (38-126) U/L Total Creatine Kinase 125 (55-170) U/L CK-MB (CK-2) 0.35 (<2.37) ng/mL CK-MB (CK-2) Rel Index 0.3 L (1.5-5.0) % Troponin I < 0.012 (0.01-0.034) ng/mL Total Protein (6.3-8.2) g/dL Albumin (3.5-5.0) g/dL Globulin (1.7-4.1) g/dL Albumin/Globulin Ratio (1.0-2.8) Lipase (23-300) U/L Procalcitonin 0.58 H (<0.5) ng/mL Urine Color Urine Appearance Urine pH (4.5-8.0) Ur Specific [place] (1.000-1.035) Urine Protein (Negative) Urine Glucose (UA) (Negative) g/dL Urine Ketones (NEGATIVE) Urine Occult Blood (Negative) Urine Nitrate (Negative) Urine Bilirubin (NEGATIVE) Ur Bilirubin Confirm (Negative) Urine Urobilinogen (0.2) E.U./dL Ur Leukocyte Esterase (NEGATIVE) Urine RBC (0-5/HPF) Urine WBC (0-5/HPF) Ur Squamous Epith Cells (0-5/HPF) Amorphous Sediment Urine Bacteria (None) Granular Casts (None) Urine Mucus (Negative) Ur Culture Indicated? Blood Type O Positive Antibody Screen Negative Crossmatch See Detail 03/19/20 03/19/20 03/19/20 Range/Units 12:18 13:45 18:40 WBC (4.5-11.0) X10^3/uL RBC (4.5-5.9) X10^6/uL Hgb (13.5-17.5) g/dL Hct (41-53) % MCV (80-100) fL MCH (26-34) PG MCHC (30-36) % RDW (11.6-14.8) % Plt Count (150-400) X10^3/uL Neut % (Auto) Lymph % (Auto) [place] % (Auto) Eos % (Auto) Baso % (Auto) Lymph # (Auto) [place] # (Auto) Baso # (Auto) Total Counted Seg Neutrophils % (38-70) % Band Neutrophils % (3-7) % Lymphocytes % (Manual) (25-45) % Monocytes % (Manual) (2-11) % Eosinophils % (Manual) (2-4) % Basophils % (Manual) (0-1) % Metamyelocytes % (-0) % Myelocytes % (-0) % Promyelocytes % (-0) % Blast Cells % (-0) % Neutrophils # (Manual) (1094-5229) /uL Toxic Vacuolation Dohle Bodies Platelet Estimate RBC Morphology Polychromasia Basophilic Stippling Anisocytosis PT (10.1-12.7) SECONDS INR (0.9-1.3) APTT (26.4-36.2) SECONDS Sodium (137-145) mmol/L Potassium (3.4-5.1) mmol/L Chloride (98-107) mmol/L Carbon Dioxide (22-32) mmol/L BUN (9-20) mg/dL Creatinine (0.66-1.25) mg/dL Estimated GFR (>60) mL/min BUN/Creatinine Ratio (6-22) Glucose (80-110) mg/dL Lactate 0.7 (0.7-2.1) mmol/L Calcium (8.4-10.2) mg/dL Total Bilirubin (0.2-1.3) mg/dL AST (17-59) IU/L ALT (<50) IU/L Alkaline Phosphatase (38-126) U/L Total Creatine Kinase (55-170) U/L CK-MB (CK-2) (<2.37) ng/mL CK-MB (CK-2) Rel Index (1.5-5.0) % Troponin I (0.01-0.034) ng/mL Total Protein (6.3-8.2) g/dL Albumin (3.5-5.0) g/dL Globulin (1.7-4.1) g/dL Albumin/Globulin Ratio (1.0-2.8) Lipase (23-300) U/L Procalcitonin (<0.5) ng/mL Urine Color Yellow Urine Appearance Sl cloudy Urine pH 5.5 (4.5-8.0) Ur Specific [place] 1.025 (1.000-1.035) Urine Protein 2+ H (Negative) Urine Glucose (UA) Negative (Negative) g/dL Urine Ketones 1+ H (NEGATIVE) Urine Occult Blood 2+ H (Negative) Urine Nitrate Negative (Negative) Urine Bilirubin 1+ H (NEGATIVE) Ur Bilirubin Confirm Negative (Negative) Urine Urobilinogen 0.2 (0.2) E.U./dL Ur Leukocyte Esterase Negative (NEGATIVE) Urine RBC 1-5/hpf (0-5/HPF) Urine WBC 1-5/hpf (0-5/HPF) Ur Squamous Epith Cells 0-1 /hpf (0-5/HPF) Amorphous Sediment 3+ Urine Bacteria None seen (None) Granular Casts 10-30/lpf (None) Urine Mucus 3+ H (Negative) Ur Culture Indicated? Cult not indicated Blood Type Cancelled Antibody Screen Cancelled Crossmatch Urine Dip Bedside Urine Glucose Negative Bedside Urine Bilirubin + 1 Bedside Urine Ketone ++ 40 Urine Specific [place] 1.030 Bedside Urine Occult Blood ++ Bedside Urine pH 6 Bedside Urine Protein ++ 100 Bedside Urine Urobilinogen +/- 1mg Bedside Urine Nitrite + Positive Bedside Urine Leukocytes +/- 15 Esterase Imaging Data Chest x-ray: Radiologist Impression: [address] [address] XRay Report Signed Patient: Gallito Pastor FMR#: [id number] : 9Acct:[id number] Age/Sex: 69 / MDate of Service: 03/19/20 Loc: ED Accession Number: [id number] Procedure: XR chest 1V Ordering Provider: Stephanie Wilson D.O. PROCEDURE: XR CHEST 1V INDICATIONS: weakness TECHNIQUE: One view of the chest was acquired. COMPARISON: [facility], , XR CHEST 2V, 03/17/2020, 9:08. FINDINGS: Surgical changes and devices: None. Lungs and pleura: Lungs are clear. No pleural effusions or pneumothorax. Mediastinum: Mediastinal contours appear normal. Heart size is normal. Bones and chest wall: No suspicious bony lesions. Overlying soft tissues appear unremarkable. IMPRESSION: No acute cardiopulmonary disease. Dictated by: Елена Randolph M.D. on 03/19/2020 at 9:33 Approved by: Елена Randolph M.D. on 03/19/2020 at 9:34 ECG Data Attestation: I personally reviewed and interpreted this ECG as follows: Prior ECG tracings: available for review Interpretation: similar to prior from 03/17/2020. Patient has sinus rhythm with a right bundle branch, rate of 68 P are 182 QRS of 148 QTC of 418. No new ST segment changes noted. MDM Narrative Medical decision making narrative: Patient's labs show decrease in his hemoglobin as well as platelets at 8.2 and 22 respectively. White count is 5.6. INR is 1.5 with a PTT of 32. Chemistries do show hyponatremia that is gradually been worsening since the and is at 1:30 a.m. today. Potassium is normal range with a chloride of 95 BUN is elevated 28 renal function has slightly worsened at 1.8 creatinine at 37 GFR up from 1.65 on the and 1.57 on the . Patients troponin is negative. CXR shows no acute changes, Head CT shows no acute intracranial process. Discussed with patient and his family at bedside that likely his electrolyte changes in renal function from his D increased oral intake, and that I suspected that his hemoglobin and platelet changes are from his myeloproliferative disorder. I feel patient would probably benefit from some observation in the hospital overnight. Patient is adamant he does not wish to stay in the hospital at this time. He does have an appointment with his oncologist Dr. Carolina on Sunday. His hemoglobin has dropped as well as his platelets which I suspect is from his myeloproliferative disorder and is not related to GI bleeding at this time. He is close to the range for transfusion particularly for his platelets so past patient to wait until I spoke with his oncology team to make sure that they did not want to transfuse at this time. Spoke with Dr. Carolina, he does recommend transfusion and will be happy to see patient at his appointment on Sunday. 1 unit PRBCs and platelets today. Patient continues to not wish for observation, plan to transfuse in department but will be extended stay as platelets come from an outside source and take 3-4 hours to arrive. Patient is comfortable with this plan. Also discussed with patient's family. Patient developed fever prior to transfusion, given tylenol. Lactate, procalcitonin blood cultures were obtained. Procalcitonin is elevated at 0.58 increasing suspicion for bacterial infection, lactate is normal. Patient has not had platelet transfusion about a year, he states he occasionally gets infusions but his last 1 was about a month ago this could possibly be a source. Patient still does not want to be admitted at this time. He was able to ambulate to the bathroom independently. I also discussed concerns with his . Patient received 1 units of packed red blood cells and platelets. He did have low pressures intermittently and was encouraged to be admitted. He did finally give a urine but left immediately afterwards without waiting for the results, no nitrates or leuks noted. Urine culture was ordered. Patient and I discussed that I would not start antibiotics without a clear source. He is to return if any worsening symptoms. Discharge Plan Departure Patient Disposition: Left Against Medical Advice Clinical Impression: Weakness, Thrombocytopenia, Anemia Discharge Date/Time: 03/19/20 18:35 Activity Restrictions/Additional Instructions: Follow-up with Dr. Carolina at your appointment on Sunday. Continue your home medications as prescribed I suspect you have a bacterial infection and recommend observation overnight in the hospital. You may return at any time for repeat evaluation and potential admission to the hospital. Return for recurrent fevers, increasing weakness, altered mental status, new chest pain, shortness of breath, persistent vomiting, decrease in urine output or very dark urine, lightheadedness passing out or other new or concerning symptoms. Prescriptions: No Action Shingrix (PF) 50 mcg/0.5 mL suspension for reconstitution 0.5 ml IM ONCE Qty: 1 RF: 0 metronidazole [Metrogel] 1 % gel 1 % Topical DIRECTED Qty: 60 RF: 0 levothyroxine [Synthroid] 50 mcg tablet 100 mcg PO DAILY Qty: 60 RF: 3 allopurinol 300 mg tablet 300 mg PO QPM Qty: 90 RF: 2 colchicine 0.6 mg tablet See Rx Instructions .ROUTE .COMPLEX Qty: 60 RF: 0 metoclopramide HCl 10 mg tablet 10 mg PO TID PRN (Reason: hiccups) Qty: 30 RF: 0 hydroxyurea [Hydrea] 500 mg Capsule 500 mg PO DAILY Qty: 90 RF: 2 Jakafi 25 mg Tablet 25 mg PO BID Qty: 60 RF: 5 meclizine 25 mg tablet 25 mg PO TID PRN (Reason: motion sickness) Qty: 15 RF: 0 ondansetron HCl [Zofran] 4 mg tablet 4 mg PO Q6H PRN (Reason: nausea and vomiting) Qty: 10 RF: 0 Referrals: Amol Riggins MD [Primary Care Provider] - Stand Alone Forms: Against Medical Advice
--- NOTE | 2020-03-19 08:53 | DI.RAD.S_ITS ---
PROCEDURE: XR CHEST 1V INDICATIONS: weakness TECHNIQUE: One view of the chest was acquired. COMPARISON: [facility], CR, XR CHEST 2V, 03/17/2020, 9:08. FINDINGS: Surgical changes and devices: None. Lungs and pleura: Lungs are clear. No pleural effusions or pneumothorax. Mediastinum: Mediastinal contours appear normal. Heart size is normal. Bones and chest wall: No suspicious bony lesions. Overlying soft tissues appear unremarkable. IMPRESSION: No acute cardiopulmonary disease. Dictated by: Елена Randolph M.D. on 03/19/2020 at 9:33 Approved by: Елена Randolph M.D. on 03/19/2020 at 9:34
--- NOTE | 2020-03-19 08:55 | DI.CT.S_ITS ---
PROCEDURE: CT HEAD/BRAIN WO CON INDICATIONS: headaches, low platelets, increasing weakness TECHNIQUE: Noncontrast 4.5 mm thick angled axial sections acquired from the foramen magnum to the vertex, with coronal and sagittal reformats. For radiation dose reduction, the following was used: automated exposure control, adjustment of mA and/or kV according to patient size. COMPARISON: [facility], CT, HEAD WITHOUT CONTRAST, 06/09/2015, 7:51. FINDINGS: Image quality: Excellent. CSF spaces: Basal cisterns are patent. No extra-axial fluid collections. The ventricles are symmetric in size and shape. Brain: No intracranial bleeds or masses. There is cerebral volume loss for age, with resultant ventricular and sulcal prominence. There are minor periventricular and deep white matter chronic small vessel ischemic changes. There is intracranial internal carotid artery atherosclerosis. Skull and face: Calvarium and visualized facial bones appear intact, without suspicious lesions. Sinuses: Visualized sinuses and mastoids are clear. IMPRESSION: 1. No CT evidence of acute intracranial process. 2. Age-appropriate exam. Dictated by: Елена Randolph M.D. on 03/19/2020 at 9:34 Approved by: Елена Randolph M.D. on 03/19/2020 at 9:36
[2020-03-19] MEDS: SODIUM CHLORIDE 0.9% 1,000 ML 1000 ML IV (09:08)
[2020-03-19] MEDS: ONDANSETRON 4 MG/2 ML INJ IV ×2 (09:09→17:45)
[2020-03-19 09:18] LABS: INR 1.5 (0.9-1.3); Prothrombin Time 16.6 SECONDS (10.1-12.7)
[2020-03-19 09:20] LABS: Hemoglobin 8.2 g/dL (13.5-17.5); Mean Corpuscular HGB Conc 33.9 % (30-36); Mean Corpuscular Hemoglobin 31.7 PG (26-34); Mean Corpuscular Volume 93.4 fL (80-100); Red Blood Cell Count 2.58 X10^6/uL (4.5-5.9); Red Cell Distribution Width 19.7 % (11.6-14.8); White Blood Cell Count 5.6 X10^3/uL (4.5-11.0)
[2020-03-19 09:21] LABS: Hematocrit 24.1 % (41-53); PTT Partial Thromboplastin Tim 32 SECONDS (26.4-36.2)
[2020-03-19 09:23] LABS: Add Manual Diff / Slide Review YES; Platelet Count 22 X10^3/uL (150-400)
[2020-03-19 09:24] LABS: Creatine Kinase 125 U/L (55-170)
[2020-03-19 09:26] LABS: Alanine Aminotransferase 15 IU/L (<50); Albumin 4.2 g/dL (3.5-5.0); Albumin Globulin Ratio 1.1 (1.0-2.8); Alkaline Phosphatase 36 U/L (38-126); Aspartate Aminotransferase 31 IU/L (17-59); BUN Creatinine Ratio 15.5 (6-22); Bilirubin Total 0.9 mg/dL (0.2-1.3); Blood Urea Nitrogen 28 mg/dL (9-20); Calcium 8.5 mg/dL (8.4-10.2); Carbon Dioxide 24 mmol/L (22-32); Chloride 95 mmol/L (98-107); Estimated Glomerular Filt Rate 37.2 mL/min (>60); Globulin 3.8 g/dL (1.7-4.1); Glucose 110 mg/dL (80-110); HEMOLYSIS < 15 (0-50); Lipase 76 U/L (23-300); Sodium 130 mmol/L (137-145)
[2020-03-19 09:37] LABS: Troponin I < 0.012 ng/mL (0.01-0.034)
[2020-03-19 09:39] LABS: CKMB % Relative Index 0.3 % (1.5-5.0); Creatine Kinase MB 0.35 ng/mL (<2.37)
[2020-03-19 09:54] LABS: Neutrophils Absolute Manual 3136 /uL (3000-5900); Total Cells Counted 100
[2020-03-19 09:55] LABS: Anisocytosis 1+; Basophilic Stippling 1+; Dohle Bodies 1+; Platelet Estimate Decreased on smear; Polychromasia 1+; Toxic Vacuolation Pres
--- NOTE | 2020-03-19 12:09 | PC.NURSE ---
Pt came out of room to use bathroom without the assistance of staff. Pt was very wobbly and had pulled his IV out. Pt was assisted by 2 HOSPITAL[employer] SPECIALIST's to the bathroom and RN Kathleen wrapped the IV site. Pt used bathroom, was cleaned up and assisted back to room via wheelchair.
[2020-03-19] MEDS: ACETAMINOPHEN 325 MG TABLET 975 MG PO (13:54)
[2020-03-19 14:10] LABS: Lactate (Lactic Acid) 0.7 mmol/L (0.7-2.1)
[2020-03-19 14:31] LABS: Procalcitonin 0.58 ng/mL (<0.5)
[2020-03-19] MEDS: IBUPROFEN 400 MG TABLET 800 MG PO (14:56)
[2020-03-19 18:56] LABS: Bacteria Urine None Seen
[2020-03-19 18:58] LABS: Appearance Urine UA SL CLOUDY; Bilirubin Urine UA 1+ (NEGATIVE); Color Urine UA YELLOW; Glucose Urine UA NEGATIVE (Negative); Ketones Urine UA 1+ (NEGATIVE); Leukocyte Esterase Urine UA NEGATIVE (NEGATIVE); Nitrite Urine UA NEGATIVE (Negative); Occult Blood Urine UA 2+ (Negative); Protein Urine UA 2+ (Negative); Specific Gravity Urine UA 1.025 (1.000-1.035); Urobilinogen Urine UA 0.2 E.U./dL (0.2); pH Urine UA 5.5 (4.5-8.0)
[2020-03-19 19:06] LABS: Ictotest Urine Negative (Negative); RBC Urine 1-5/HPF (0-5/HPF)
[2020-03-19 19:07] LABS: WBC Urine 1-5/HPF (0-5/HPF)
[2020-03-19 19:08] LABS: Amorphous Sediment Urine 3+; Culture Indicated Urine Cult Not Indicated; Granular Casts Urine 10-30/LPF; Mucus Urine 3+ (Negative); Squamous Epithelial Cell Urine 0-1 /HPF (0-5/HPF)
--- NOTE | 2020-03-25 10:04 | PC.NURSE ---
Late Entry: Platelets infused total volume 282 mL.
== END 2020-03-19 18:35 | disposition left against medical advice (07) ==
PROVIDERS: Emergency Provider Emergency Medicine; PCP Family Medicine
DX: R53.1 Weakness (principal); D69.6 Thrombocytopenia, unspecified; D64.9 Anemia, unspecified; E87.1 Hypo-osmolality and hyponatremia; R51 Headache
CPT/HCPCS: 36415; 36430; 70450; 71045; 80053; 81001; 81003; 82550; 82553; 83605; 83690; 84145; 84484; 85025; 85610; 85730; 86850; 86900; 86901; 87040; 93005; 96361; 96374; 96376; 99285; P9016; J2405; P9035

== ENCOUNTER → 2020-03-22 11:46 | Outpatient (CLI) | payer MEDICARE, OTHER, SELFPAY ==
[2020-03-22 12:12] LABS: Add Manual Diff / Slide Review NO; Basophils Absolute Auto 0 /uL (0-100); Basophils Percent Auto 0.4 % (0-2); Eosinophils Absolute Auto 100 /uL (0-450); Eosinophils Percent Auto 0.8 % (2-4); Hematocrit 29.8 % (41-53); Hemoglobin 10.2 g/dL (13.5-17.5); Lymphocytes Absolute Auto 900 /uL (1100-4500); Lymphocytes Percent Auto 8.9 % (25-40); Mean Corpuscular HGB Conc 34.2 % (30-36); Mean Corpuscular Hemoglobin 31.4 PG (26-34); Mean Corpuscular Volume 91.8 fL (80-100); Monocytes Absolute Auto 1100 /uL (0-900); Monocytes Percent Auto 10.6 % (3-14); Neutrophils Absolute Auto 8200 /uL (1500-7000); Neutrophils Percent Auto 79.3 % (50-75); Platelet Count 42 X10^3/uL (150-400); Red Blood Cell Count 3.25 X10^6/uL (4.5-5.9); Red Cell Distribution Width 18.5 % (11.6-14.8); White Blood Cell Count 10.3 X10^3/uL (4.5-11.0)
[2020-03-22 12:19] LABS: BUN Creatinine Ratio 11.5 (6-22); Blood Urea Nitrogen 17 mg/dL (9-20); Calcium 8.9 mg/dL (8.4-10.2); Carbon Dioxide 27 mmol/L (22-32); Chloride 98 mmol/L (98-107); Glucose 102 mg/dL (80-110); HEMOLYSIS < 15 (0-50); Potassium 3.9 mmol/L (3.4-5.1); Sodium 135 mmol/L (137-145)
== END ==
PROVIDERS: PCP Family Medicine; Referring Provider Family Medicine; Visit Provider Family Medicine
DX: D47.1 Chronic myeloproliferative disease (principal)
CPT/HCPCS: 36415; 80048; 85025; 86850; 86900; 86901; 99214

== ENCOUNTER → 2020-03-30 14:50 | Outpatient (CLI) | payer MEDICARE, OTHER, SELFPAY ==
--- NOTE | 2020-03-30 14:52 | DI.CT.S_ITS ---
PROCEDURE: CT SOFT TISSUE NECK WO CON INDICATIONS: pain of right ear, right jaw and back of the head. TECHNIQUE: Non-contrast 3.0 mm axial sections acquired from the sella to the aortic arch. Additional oblique axial 3.0 mm sections acquired through the pharynx. 3 mm thick coronal and sagittal reformats were generated. For radiation dose reduction, the following was used: automated exposure control. COMPARISON: [facility], CT, CT HEAD/BRAIN WO CON, 03/19/2020, 9:18. FINDINGS: Image quality: Significantly limited by absence of intravenous contrast. Lymph nodes: No enlarged lymph nodes seen throughout the neck. Vessels: Non-opacified vessels appear normal in caliber. Neck spaces: The oropharynx, nasopharynx, and pharynx demonstrate no mucosal lesions. The vocal cords, false vocal cords, pyriform sinuses, epiglottis, vallecula, and tongue base all appear normal. Extramucosal spaces appear unremarkable except at the left posterolateral border of the esophagus where at the thoracic inlet there is a ovoid debris filled 2 x 3 cm presumed Zenker's diverticulum best seen on series 2 image 62. Adjacent soft tissue inflammation is not found. Glands: The parotid and submandibular glands appear normal, without stones. Thyroid gland is not well-seen by this noncontrast study.. Miscellaneous: Visualized brain and orbits appear normal. Lung apices appear clear. Superficial soft tissues appear normal. IMPRESSION: The study is limited by the absence of intravenous contrast infusion. A mass or abscess is not found. Note is made of a 2 x 3 cm left posterolateral Zenker's diverticulum at the thoracic inlet level, without adjacent soft tissue inflammation. Dictated by: Brenden Nolan M.D. on 03/30/2020 at 15:42 Approved by: Brenden Nolan M.D. on 03/30/2020 at 15:47
== END ==
PROVIDERS: PCP Family Medicine; Referring Provider Internal Medicine Hematology & Oncology; Visit Provider Internal Medicine Hematology & Oncology
DX: R68.84 Jaw pain (principal); H92.01 Otalgia, right ear; D47.1 Chronic myeloproliferative disease; R51 Headache; K22.5 Diverticulum of esophagus, acquired
CPT/HCPCS: 70490

== ENCOUNTER → 2020-04-05 08:57 | Outpatient (CLI) | payer MEDICARE, OTHER, SELFPAY ==
[2020-04-05 10:09] LABS: Hematocrit 32.1 % (41-53); Hemoglobin 10.9 g/dL (13.5-17.5); Mean Corpuscular HGB Conc 33.9 % (30-36); Mean Corpuscular Hemoglobin 31.5 PG (26-34); Mean Corpuscular Volume 92.9 fL (80-100); Platelet Count 62 X10^3/uL (150-400); Red Blood Cell Count 3.46 X10^6/uL (4.5-5.9); Red Cell Distribution Width 18.7 % (11.6-14.8); White Blood Cell Count 11.9 X10^3/uL (4.5-11.0)
[2020-04-05 10:17] LABS: Add Manual Diff / Slide Review YES
[2020-04-05 11:16] LABS: Neutrophils Absolute Manual 5117 /uL (3000-5900); Total Cells Counted 100
[2020-04-05 11:17] LABS: Anisocytosis 2+
== END ==
PROVIDERS: PCP Family Medicine; Referring Provider Internal Medicine Hematology & Oncology; Visit Provider Internal Medicine Hematology & Oncology
DX: D47.1 Chronic myeloproliferative disease (principal)
CPT/HCPCS: 36415; 85025

== ENCOUNTER → 2020-04-19 08:26 | Outpatient (CLI) | payer MEDICARE, OTHER, SELFPAY ==
[2020-04-19 08:50] LABS: Hematocrit 25.4 % (41-53); Hemoglobin 8.8 g/dL (13.5-17.5); Mean Corpuscular HGB Conc 34.6 % (30-36); Mean Corpuscular Hemoglobin 32.2 PG (26-34); Mean Corpuscular Volume 93.1 fL (80-100); Red Blood Cell Count 2.73 X10^6/uL (4.5-5.9)
[2020-04-19 08:51] LABS: Add Manual Diff / Slide Review YES; Platelet Count 38 X10^3/uL (150-400)
[2020-04-19 08:55] LABS: Alanine Aminotransferase 8 IU/L (<50); Albumin 4.2 g/dL (3.5-5.0); Albumin Globulin Ratio 1.1 (1.0-2.8); Alkaline Phosphatase 44 U/L (38-126); Aspartate Aminotransferase 17 IU/L (17-59); BUN Creatinine Ratio 7.9 (6-22); Bilirubin Total 1.1 mg/dL (0.2-1.3); Blood Urea Nitrogen 12 mg/dL (9-20); Calcium 9.1 mg/dL (8.4-10.2); Carbon Dioxide 25 mmol/L (22-32); Chloride 101 mmol/L (98-107); Estimated Glomerular Filt Rate 45.6 mL/min (>60); Globulin 3.9 g/dL (1.7-4.1); Glucose 107 mg/dL (80-110); HEMOLYSIS < 15 (0-50); Potassium 4.4 mmol/L (3.4-5.1); Sodium 134 mmol/L (137-145); Total Protein 8.1 g/dL (6.3-8.2)
[2020-04-19 09:33] LABS: Neutrophils Absolute Manual 3920 /uL (3000-5900); Nucleated Red Blood Cells 4 #/Diff; Total Cells Counted 100
[2020-04-19 09:34] LABS: Basophilic Stippling 1+; Platelet Estimate Decreased on smear; Polychromasia 1+
== END ==
PROVIDERS: PCP Family Medicine; Referring Provider Internal Medicine Hematology & Oncology; Visit Provider Internal Medicine Hematology & Oncology
DX: D47.1 Chronic myeloproliferative disease (principal)
CPT/HCPCS: 36415; 80053; 85025

== ENCOUNTER → 2020-07-21 11:15 | Outpatient (CLI) | payer MEDICARE, OTHER, SELFPAY ==
--- NOTE | 2020-07-21 11:16 | DI.US.S_ITS ---
PROCEDURE: US ABDOMEN LIMITED INDICATIONS: primary myelofribrosis, splenomegaly TECHNIQUE: Real-time focused scanning was performed of the abdomen, with image documentation. COMPARISON: [facility], , ABDOMEN LIMITED, 03/09/2020, 8:14. [facility], , US ABDOMEN LIMITED, 12/17/2019, 12:11. FINDINGS: The liver is normal in size and echotexture, and within the left hepatic lobe there is a calcification previously present measuring 9 x 4 x 6 mm. The gallbladder appears normal, the bile ducts are not distended at 4.4 mm. Pancreas visualized appears normal. Current spleen craniocaudad length is 19.8 cm, previously 18.2 cm and overall splenic volume is enlarged at 7:20 a.m. 8 cc. IVC is normal in size, and no splenic vein or IVC thrombus is found. IMPRESSION: Splenomegaly, no venous thrombosis found. Dictated by: Brenden Nolan M.D. on 07/21/2020 at 12:03 Approved by: Brenden Nolan M.D. on 07/21/2020 at 12:06
== END ==
PROVIDERS: PCP Family Medicine; Referring Provider Internal Medicine Hematology & Oncology; Visit Provider Internal Medicine Hematology & Oncology
DX: D47.1 Chronic myeloproliferative disease (principal); R16.1 Splenomegaly, not elsewhere classified
CPT/HCPCS: 76705

== ENCOUNTER → 2020-08-23 11:47 | Outpatient (CLI) | payer MEDICARE, OTHER, SELFPAY ==
--- NOTE | 2020-08-23 11:52 | DI.US.S_ITS ---
PROCEDURE: US ABDOMEN LIMITED INDICATIONS: myelofibrosis TECHNIQUE: Real-time scanning was performed of the abdominal and retroperitoneal organs, with image documentation. COMPARISON: [facility], , US ABDOMEN LIMITED, 07/21/2020, 11:46. FINDINGS: Spleen measures 16 x 18 x 9 cm in size with a volume of 1802.5 milliliters. Previous measurements volume is 1339 milliliters. IMPRESSION: Splenomegaly with interval further increase in spleen size as above. Dictated by: Arsenio Hawthorne M.D. on 08/23/2020 at 15:01 Approved by: Arsenio Hawthorne M.D. on 08/23/2020 at 15:02
[2020-08-23 13:11] LABS: White Blood Cell Count 6.5 X10^3/uL (4.5-11.0)
[2020-08-23 13:15] LABS: Hematocrit 27.8 % (41-53); Hemoglobin 9.6 g/dL (13.5-17.5); Mean Corpuscular HGB Conc 34.4 % (30-36); Mean Corpuscular Hemoglobin 28.5 PG (26-34); Mean Corpuscular Volume 82.9 fL (80-100); Platelet Count 122 X10^3/uL (150-400); Red Blood Cell Count 3.35 X10^6/uL (4.5-5.9)
[2020-08-23 13:16] LABS: Add Manual Diff / Slide Review YES
[2020-08-23 13:26] LABS: Alanine Aminotransferase 13 IU/L (<50); Alkaline Phosphatase 61 U/L (38-126); Aspartate Aminotransferase 23 IU/L (17-59); BUN Creatinine Ratio 10.7 (6-22); Bilirubin Total 1.1 mg/dL (0.2-1.3); Blood Urea Nitrogen 21 mg/dL (9-20); Calcium 9.1 mg/dL (8.4-10.2); Carbon Dioxide 28 mmol/L (22-32); Chloride 102 mmol/L (98-107); Estimated Glomerular Filt Rate 33.7 mL/min (>60); Globulin 4.1 g/dL (1.7-4.1); Glucose 95 mg/dL (80-110); HEMOLYSIS < 15 (0-50); Potassium 4.6 mmol/L (3.4-5.1); Sodium 138 mmol/L (137-145); Total Protein 8.1 g/dL (6.3-8.2)
[2020-08-23 13:43] LABS: Neutrophils Absolute Manual 4680 /uL (3000-5900); Total Cells Counted 100
[2020-08-23 13:45] LABS: Anisocytosis 2+
[2020-08-24 22:36] LABS: Vitamin B1 257.3 nmol/L (66.5-200.0)
== END ==
PROVIDERS: PCP Family Medicine; Referring Provider Internal Medicine Hematology & Oncology; Visit Provider Internal Medicine Hematology & Oncology
DX: D47.1 Chronic myeloproliferative disease (principal); R16.1 Splenomegaly, not elsewhere classified
CPT/HCPCS: 36415; 76705; 80053; 84425; 85025

== ENCOUNTER → 2020-09-10 08:10 | Outpatient (CLI) | payer MEDICARE, OTHER, SELFPAY ==
--- NOTE | 2020-09-10 | DI.CT.S_ITS ---
PROCEDURE: CT ABDOMEN PELVIS WO CON INDICATIONS: Chronic kidney disease, stage 3 unspecified. History of mild low fibrosis and splenomegaly. TECHNIQUE: Noncontrast 5 mm thick sections acquired from the diaphragms to the symphysis. 5 mm coronal and sagittal reformats were then performed. For radiation dose reduction, the following was used: automated exposure control, adjustment of mA and/or kV according to patient size. COMPARISON: [facility], CT, CT CHEST ABD PEL W CON, 07/02/2019, 13:02. FINDINGS: Image quality: Excellent. ABDOMEN: Lung bases: Lung bases are clear. Heart size is normal. Solid organs: Liver is normal in size. Gallbladder appears normal . Pancreas is normal in contours. Spleen is normal in size. No adrenal nodules. Kidneys are normal in size, without hydronephrosis or nephrolithiasis. Right kidney measures 9.2 cm craniocaudad, and the left kidney measures up to 9.1 cm in length. Maximal splenic craniocaudad length is 18.4 cm. The liver is not enlarged. Peritoneum and bowel: Unenhanced bowel loops demonstrate normal wall thickness and caliber. No free fluid or air. Nodes and vessels: No retroperitoneal or mesenteric adenopathy by size criteria. Aorta and inferior vena cava are normal in caliber. Miscellaneous: No ventral hernias. PELVIS: Genitourinary: Bladder wall thickness is normal. Miscellaneous: No inguinal hernias or adenopathy. Bones: No suspicious bony lesions. No vertebral body compression fractures. IMPRESSION: No sign of hydronephrosis or nephrolithiasis. Normal renal size. No bladder distension. Prominent splenomegaly, previously documented, in the setting of prior diagnosis of myelofibrosis. Dictated by: Brenden Nolan M.D. on 09/10/2020 at 10:23 Approved by: Brenden Nolan M.D. on 09/10/2020 at 10:32
== END ==
PROVIDERS: PCP Family Medicine; Referring Provider Internal Medicine Hematology & Oncology; Visit Provider Internal Medicine Hematology & Oncology
DX: N18.30 Chronic kidney disease, stage 3 unspecified (principal); D75.81 Myelofibrosis; R16.1 Splenomegaly, not elsewhere classified
CPT/HCPCS: 74176

== ENCOUNTER 2020-11-03 07:22 | Emergency (ER) | payer MEDICARE, OTHER, SELFPAY ==
[2020-11-03 07:32] VITALS: BP 161/73; PULSE 110; RESP 18; TEMP 36.4; O2SAT 100
--- NOTE | 2020-11-03 07:42 | ED.ABDPAIN ---
HPI - Abdominal Pain General Chief Complaint: Abdominal Pain Stated Complaint: impacted bowel x7 days Time Seen by Provider: 11/03/20 07:27 Source: patient, family and old records reviewed Mode of arrival: Ambulatory Limitations: no limitations History of Present Illness HPI narrative: This is a 70-year-old male who comes to the emergency department with complaint of mild abdominal pain that is generalized. Nausea but no vomiting and no bowel movements x7 days and states he has not appreciated any flatus for the last several days. Patient states he does feel like there is some pressure he feels like he does need to go to the bathroom but nothing comes out other than some small amount of leakage. He states that he has had issues intermittently with diarrhea and constipation secondary to his medications for his myelofibrosis. He does not have a history of prior bowel obstructions. Patient denies any fevers, no chest pain or shortness of breath. No cold cough or congestion. He denies any new back or flank pain. He denies any urinary issues. He has tried biscodyl an [id number] laxative, he was given magnesium citrate yesterday by his primary care physician Dr. Riggins without any improvement. He states he has not eaten anything in the last 24-36 hours, he and his family both state he only eats 2 very small meals daily and he also has not been ingesting many fluids. Patient denies any major abdominal surgeries. Of splenomegaly, myelofibrosis, hypothyroidism, gout and asthma. He denies any other prior surgeries. He is a former smoker. He does follow with Dr. Carolina for oncology. Related Data Home Medications Medication Instructions Recorded Confirmed allopurinol 300 mg PO PRN PRN 05/03/20 09/30/20 Previous Rx's Medication Instructions Recorded metronidazole 1 % topical gel 1 % TOPICAL DIRECTED #60 gram 09/16/19 colchicine 0.6 mg tablet See Rx Instructions .ROUTE 02/25/20 .COMPLEX #60 tablet metoclopramide HCl 10 mg tablet 10 mg PO TID PRN #30 tab 03/24/20 fedratinib 300 mg PO DAILY #90 cap 07/05/20 thiamine HCl (vitamin B1) 100 mg 100 mg PO DAILY #90 tab 09/23/20 tablet levothyroxine 50 mcg tablet 100 mcg PO DAILY #180 tab 09/30/20 ondansetron HCl 4 mg PO Q6H #60 tab 11/01/20 docusate sodium [Colace] 100 mg PO BID PRN #30 cap 11/03/20 glycerin (adult) 1 supp NV QD-BID PRN #12 ea 11/03/20 polyethylene glycol 3350 [Miralax] 17 g PO DAILY PRN #30 ea 11/03/20 Allergies Allergy/AdvReac Type Severity Reaction Status Date / Time No Known Drug Allergies Allergy Verified 03/17/20 12:45 Review of Systems Review of Systems ROS Unobtainable: All systems reviewed & are unremarkable except as noted in HPI and below Patient History Medical History (Updated 11/03/20 @ 13:37 by Stephanie Wilson DO) Asthma Gout Hypothyroidism Myelofibrosis Sinusitis Splenomegaly Surgical History No history of previous surgery (04/01/13) Social History Smoking Status: Former smoker Smoking Status: Former smoker alcohol intake frequency: 0-2 drinks per day Substance Use Type: does not use Exam Narrative Exam Narrative: GENERAL: Alert and oriented x three, thin elderly male in mild distress. HEENT: Head normocephalic, atraumatic, EOMI, pupils reactive, face symmetric, moist mucous membranes NECK: Supple, full range of motion CARDIOVASCULAR: Regular rate and rhythm without murmurs, rubs or gallops. RESPIRATORY: Breath sounds equal bilaterally, no wheezes rales or rhonchi. ABDOMEN: Soft, mild generalized tenderness. Normoactive bowel sounds all 4 quadrants. No guarding or rebound, rigidity, no mass, patient is mildly distended, no tympany, abdomen does not feel tight. : No CVA tenderness EXTREMITIES: Normal range of motion, no clubbing or edema. Neurovascularly intact NEUROLOGICAL: Cranial nerves II through XII grossly intact. Moving all extremities SKIN: Warm, dry, no petechiae, no rashes or lesions. Initial Vital Signs Initial Vital Signs: Vital Signs Temperature 97.6 F 11/03/20 07:32 Pulse Rate 110 H 11/03/20 07:32 Respiratory Rate 18 11/03/20 07:32 Blood Pressure 161/73 H 11/03/20 07:32 Pulse Oximetry 100 11/03/20 07:32 Course Orders Ordered: Discontinued Medications Sodium Chloride (Normal Saline 0.9%) 1,000 mls @ 1,000 mls/hr IV BOLUS ONE Stop: 11/03/20 08:53 Last Infusion: 11/03/20 09:16 Dose: 0 mls/hr Documented by: Admin: 11/03/20 08:16 Dose: 1,000 mls/hr Documented by: ZI Lidocaine HCl (Lidocaine 2% (Urojet) 5 Ml Gel) 5 ml TOP NOW ONE Stop: 11/03/20 12:59 Last Admin: 11/03/20 13:13 Dose: 5 ml Documented by: ZI Reevaluation(s) Reevaluation #1: patient updated on labs. Plan to hold IV contrast, patient tolerating oral contrast well. No other complaints at this time for patient. Time: 08:49 Reevaluation #2: Patient did not have BM with enema, willing to try digital disimpaction. Patient had moderate amount of stool out unable to reach higher for additional. Stool is some softened. Plan to start oral bowel regimen and glycerin suppository. We also discussed patient can try an enema at home if he finds this helpful and to continue to hydrate. Time: 12:57 Vital Signs Vital signs: Vital Signs - 8 hr 11/03/20 13:49 Pulse Rate 87 Respiratory Rate 17 Blood Pressure 137/67 Pulse Oximetry 99 MDM - Abdominal Pain Lab Data Attestation: I reviewed the patient's lab results. Result diagrams: 11/03/20 08:05 11/03/20 08:05 Labs: Lab Results 11/03/20 11/03/20 Range/Units 08:05 08:05 WBC 8.7 (4.5-11.0) X10^3/uL RBC 3.79 L (4.5-5.9) X10^6/uL Hgb 10.4 L (13.5-17.5) g/dL Hct 31.2 L (41-53) % MCV 82.2 (80-100) fL MCH 27.5 (26-34) PG MCHC 33.4 (30-36) % RDW 18.1 H (11.6-14.8) % Plt Count 117 L (150-400) X10^3/uL Neut % (Auto) Not Reportable Lymph % (Auto) Not Reportable Johnson % (Auto) Not Reportable Eos % (Auto) Not Reportable Baso % (Auto) Not Reportable Lymph # (Auto) Not Reportable Johnson # (Auto) Not Reportable Baso # (Auto) Not Reportable Total Counted 100 Seg Neutrophils % 59.0 (38-70) % Band Neutrophils % 12.0 H (3-7) % Lymphocytes % (Manual) 6.0 L (25-45) % Atypical Lymphs % 4.0 H ( - 0) % Monocytes % (Manual) 9.0 (2-11) % Basophils % (Manual) 5.0 H (0-1) % Metamyelocytes % 3.0 H (-0) % Myelocytes % 1.0 H (-0) % Blast Cells % 1.0 H (-0) % Neutrophils # (Manual) 6177 H (5734-7198) /uL RBC Morphology See below Polychromasia 1+ H Anisocytosis 2+ H Sodium 138 (137-145) mmol/L Potassium 4.6 (3.4-5.1) mmol/L Chloride 102 (98-107) mmol/L Carbon Dioxide 27 (22-32) mmol/L BUN 20 (9-20) mg/dL Creatinine 1.72 H (0.66-1.25) mg/dL Estimated GFR 39.4 L (>60) mL/min BUN/Creatinine Ratio 11.6 (6-22) Glucose 119 H (80-110) mg/dL Calcium 9.6 (8.4-10.2) mg/dL Total Bilirubin 1.3 (0.2-1.3) mg/dL AST 20 (17-59) IU/L ALT 10 (<50) IU/L Alkaline Phosphatase 79 (38-126) U/L Total Protein 8.6 H (6.3-8.2) g/dL Albumin 4.4 (3.5-5.0) g/dL Globulin 4.2 H (1.7-4.1) g/dL Albumin/Globulin Ratio 1.0 (1.0-2.8) Lipase 20 L (23-300) U/L Imaging Data CT scan - abdomen/pelvis: Radiologist's Impression: [address] [id number] Scan ReportSigned Patient: Gallito Pastor FMR#: [id number]: 9Acct:[id number]/Sex: 70 / MDate of Service: 11/03/20Loc: EDAccession Number: [id number] Procedure: CT abdomen pelvis wo con Ordering Provider: Stephanie Wilson D.O. PROCEDURE: CT ABDOMEN PELVIS WO CON INDICATIONS: no BM/flatus x 1 week, constipation vs obstruction TECHNIQUE: After oral contrast ingestion, 5 mm thick sections acquired from the diaphragms to the symphysis. 5 mm coronal and sagittal reformats were then performed. For radiation dose reduction, the following was used: automated exposure control, adjustment of mA and/or kV according to patient size. COMPARISON: [facility], CT, CT ABDOMEN PELVIS WO CON, 09/10/2020, 8:45. FINDINGS: Image quality: Excellent. ABDOMEN: Lung bases: Lung bases are clear. Heart size is normal. Solid organs: Liver is normal in size. Gallbladder is within normal limits. Pancreas is normal in contours. Marked splenomegaly is seen. No adrenal nodules. Kidneys are normal in size, without hydronephrosis or nephrolithiasis. Peritoneum and bowel: There is no gross gastric or small bowel wall thickening. Small bowel loops are normal in caliber with contrast extending to mid to distal small bowel ileum. Fluid distended colon loops are noted with a few air-fluid levels. Significant fecal stasis within sigmoid colon is seen with fecal impaction in the rectum. No gross free fluid or free air. Colonic diverticulosis is seen, no CT evidence of acute diverticulitis. Nodes and vessels: No retroperitoneal or mesenteric adenopathy by size criteria. Aorta and inferior vena cava are normal in caliber. Miscellaneous: No ventral hernias. PELVIS: Genitourinary: Bladder wall thickness is normal. Miscellaneous: No inguinal adenopathy. Small right inguinal hernia is seen containing fat only. Bones: No suspicious bony lesions. No vertebral body compression fractures. IMPRESSION: 1. Fluid distended colon loops with fecal stasis in sigmoid colon and rectum suggestive of fecal impaction. No small bowel obstruction. No abnormal bowel wall thickening. No free fluid or free air. Colonic diverticulosis without evidence of acute diverticulitis. 2. No renal stone or hydronephrosis. Normal appearing urinary bladder. 3. Marked splenomegaly not significantly changed from prior study. Dictated by: Arsenio Hawthorne M.D. on 11/03/2020 at 9:41 Approved by: Arsenio Hawthorne M.D. on 11/03/2020 at 9:45 [facility] Narrative Medical decision making narrative: Patient comes in with complaint of no bowel movement for 7 days and no flatus for the last several. He does have a large amount of stool in the rectal vault and sigmoid colon. There was concern for impaction, patient had enema which did soften stool and was able to disimpact a moderate amount but there is still stool present. Discussed with patient plan to DC home with a bowel regimen, continue glycerin suppositories and he may try an enema at home if he wishes. We did discuss that if he is having worsening symptoms such as increasing abdominal pain or if he is continuing not to have a bowel movement of the next 24-48 hours he does need to return. We did discuss that some patients do develop impactions that sometimes require more aggressive disimpaction. Patient also does not eat or drink much typically and was encouraged to increase his oral fluid intake significantly. His labs show a chronic stable anemia, platelets are 117 which appears close to his baseline and is improved from September. White count is in the normal range. Patient's renal function appears stable and even slightly improved from August, electrolytes are normal and abdominal labs do not show changes. Discharge Plan Departure Patient Disposition: Home Clinical Impression: Constipation Instructions: DI for Constipation Activity Restrictions/Additional Instructions: Follow up in the next 24-48 hours if you have still not had a bowel movement. Take colace twice daily until bowel movement. Take miralax once daily until bowel movement. [facility] Make sure you are drinking plenty of liquids, you may wish to drink juice such as apple or prune juice as well. Use glycerin suppository as directed. Return to ER for fevers, rapidly worsening pain, if you are having vomiting, no bowel movement or flatus after 24-48 hours, black or bloody stools or rectal bleeding, lightheadedness or passing out or other new or concerning symptoms. Prescriptions: New docusate sodium [Colace] 100 mg capsule 100 mg PO BID PRN (Reason: constipation) Qty: 30 RF: 0 polyethylene glycol 3350 [Miralax] 17 gram powder in packet 17 g PO DAILY PRN (Reason: constipation) Qty: 30 RF: 0 glycerin (adult) Suppository 1 supp NV QD-BID PRN (Reason: constipation) Qty: 12 RF: 0 No Action metronidazole [Metrogel] 1 % gel 1 % Topical DIRECTED Qty: 60 RF: 0 colchicine 0.6 mg tablet See Rx Instructions .ROUTE .COMPLEX Qty: 60 RF: 0 metoclopramide HCl 10 mg tablet 10 mg PO TID PRN (Reason: hiccups) Qty: 30 RF: 5 levothyroxine [Synthroid] 50 mcg tablet 100 mcg PO DAILY Qty: 180 RF: 1 thiamine HCl (vitamin B1) 100 mg tablet 100 mg PO DAILY Qty: 90 RF: 3 allopurinol 300 mg tablet 300 mg PO PRN PRN (Reason: Gout) RF: 0 fedratinib 100 mg Capsule 300 mg PO DAILY Qty: 90 RF: 11 ondansetron HCl 4 mg Tablet 4 mg PO Q6H Qty: 60 RF: 0 Referrals: Amol Riggins MD [Primary Care Provider] -
--- NOTE | 2020-11-03 07:54 | DI.CT.S_ITS ---
PROCEDURE: CT ABDOMEN PELVIS WO CON INDICATIONS: no BM/flatus x 1 week, constipation vs obstruction TECHNIQUE: After oral contrast ingestion, 5 mm thick sections acquired from the diaphragms to the symphysis. 5 mm coronal and sagittal reformats were then performed. For radiation dose reduction, the following was used: automated exposure control, adjustment of mA and/or kV according to patient size. COMPARISON: [facility], CT, CT ABDOMEN PELVIS WO CON, 09/10/2020, 8:45. FINDINGS: Image quality: Excellent. ABDOMEN: Lung bases: Lung bases are clear. Heart size is normal. Solid organs: Liver is normal in size. Gallbladder is within normal limits. Pancreas is normal in contours. Marked splenomegaly is seen. No adrenal nodules. Kidneys are normal in size, without hydronephrosis or nephrolithiasis. Peritoneum and bowel: There is no gross gastric or small bowel wall thickening. Small bowel loops are normal in caliber with contrast extending to mid to distal small bowel ileum. Fluid distended colon loops are noted with a few air-fluid levels. Significant fecal stasis within sigmoid colon is seen with fecal impaction in the rectum. No gross free fluid or free air. Colonic diverticulosis is seen, no CT evidence of acute diverticulitis. Nodes and vessels: No retroperitoneal or mesenteric adenopathy by size criteria. Aorta and inferior vena cava are normal in caliber. Miscellaneous: No ventral hernias. PELVIS: Genitourinary: Bladder wall thickness is normal. Miscellaneous: No inguinal adenopathy. Small right inguinal hernia is seen containing fat only. Bones: No suspicious bony lesions. No vertebral body compression fractures. IMPRESSION: 1. Fluid distended colon loops with fecal stasis in sigmoid colon and rectum suggestive of fecal impaction. No small bowel obstruction. No abnormal bowel wall thickening. No free fluid or free air. Colonic diverticulosis without evidence of acute diverticulitis. 2. No renal stone or hydronephrosis. Normal appearing urinary bladder. 3. Marked splenomegaly not significantly changed from prior study. Dictated by: Arsenio Hawthorne M.D. on 11/03/2020 at 9:41 Approved by: Arsenio Hawthorne M.D. on 11/03/2020 at 9:45
[2020-11-03] MEDS: SODIUM CHLORIDE 0.9% 1,000 ML 1000 ML IV (08:16)
[2020-11-03 08:24] LABS: Add Manual Diff / Slide Review YES; Hematocrit 31.2 % (41-53); Hemoglobin 10.4 g/dL (13.5-17.5); Mean Corpuscular HGB Conc 33.4 % (30-36); Mean Corpuscular Hemoglobin 27.5 PG (26-34); Mean Corpuscular Volume 82.2 fL (80-100); Platelet Count 117 X10^3/uL (150-400); Red Blood Cell Count 3.79 X10^6/uL (4.5-5.9); Red Cell Distribution Width 18.1 % (11.6-14.8); White Blood Cell Count 8.7 X10^3/uL (4.5-11.0)
[2020-11-03 08:30] LABS: Alanine Aminotransferase 10 IU/L (<50); Albumin 4.4 g/dL (3.5-5.0); Alkaline Phosphatase 79 U/L (38-126); Aspartate Aminotransferase 20 IU/L (17-59); BUN Creatinine Ratio 11.6 (6-22); Bilirubin Total 1.3 mg/dL (0.2-1.3); Blood Urea Nitrogen 20 mg/dL (9-20); Calcium 9.6 mg/dL (8.4-10.2); Carbon Dioxide 27 mmol/L (22-32); Chloride 102 mmol/L (98-107); Estimated Glomerular Filt Rate 39.4 mL/min (>60); Globulin 4.2 g/dL (1.7-4.1); Glucose 119 mg/dL (80-110); HEMOLYSIS < 15 (0-50); Lipase 20 U/L (23-300); Potassium 4.6 mmol/L (3.4-5.1); Sodium 138 mmol/L (137-145); Total Protein 8.6 g/dL (6.3-8.2)
[2020-11-03 08:49] LABS: Neutrophils Absolute Manual 6177 /uL (3000-5900); Total Cells Counted 100
[2020-11-03 08:50] LABS: Anisocytosis 2+
[2020-11-03 08:51] LABS: Polychromasia 1+
[2020-11-03] MEDS: LIDOCAINE 2% (UROJET) 5 ML GEL TOP (13:13)
--- NOTE | 2020-11-03 13:33 | PC.NURSE ---
Enema unsuccessful. Disimpaction performed by Dr. 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 Small amount of stool removed.
[2020-11-03 13:49] VITALS: BP 137/67; PULSE 87; RESP 17; O2SAT 99
== END 2020-11-03 13:52 | disposition home or self-care (01) ==
PROVIDERS: Emergency Provider Emergency Medicine; PCP Family Medicine
DX: K59.00 Constipation, unspecified (principal); R10.84 Generalized abdominal pain; R11.0 Nausea; E03.9 Hypothyroidism, unspecified
CPT/HCPCS: 36415; 74176; 80053; 83690; 85007; 85025; 96360; 99281; 99284; 99285

== ENCOUNTER → 2020-12-14 10:04 | Outpatient (CLI) | payer MEDICARE, OTHER, SELFPAY ==
[2020-12-14] MEDS: COVID-19 VACC #1, MRNA(MOD) 100 MCG/0.5 ML VIAL IM (10:14)
== END ==
PROVIDERS: PCP Internal Medicine; Visit Provider Internal Medicine
DX: Z23 Encounter for immunization (principal)
CPT/HCPCS: 0011A; 91301

== ENCOUNTER → 2021-01-04 08:24 | Outpatient (CLI) | payer MEDICARE, OTHER, SELFPAY ==
[2021-01-06 01:29] LABS: Vitamin B1 207.9 nmol/L (66.5-200.0)
== END ==
PROVIDERS: PCP Internal Medicine; Referring Provider Internal Medicine Hematology & Oncology; Visit Provider Internal Medicine Hematology & Oncology
DX: D47.1 Chronic myeloproliferative disease (principal)
CPT/HCPCS: 84425

== ENCOUNTER → 2021-01-11 09:46 | Outpatient (CLI) | payer MEDICARE, OTHER, SELFPAY ==
[2021-01-11] MEDS: COVID-19 VACC #2, MRNA(MOD) 100 MCG/0.5 ML VIAL IM (09:51)
== END ==
PROVIDERS: PCP Internal Medicine; Visit Provider Internal Medicine
DX: Z23 Encounter for immunization (principal)
CPT/HCPCS: 0012A; 91301

== ENCOUNTER → 2021-06-09 10:50 | Outpatient (CLI) | payer MEDICARE, OTHER, SELFPAY ==
--- NOTE | 2021-06-09 10:51 | DI.US.S_ITS ---
PROCEDURE: US ABDOMEN COMPLETE INDICATIONS: MYEOLFIBROSIS. SPLENOMEGALY. RIGHT UPPER QUADRANT PAIN. TECHNIQUE: Real-time scanning was performed of the abdominal and retroperitoneal organs, with image documentation. COMPARISON: [facility], , ABDOMEN LIMITED, 08/23/2020, 12:31. FINDINGS: Liver: Liver is normal in size and homogeneous in echotexture. Main portal vein is normal caliber at 14 mm in diameter. There is appropriate direction of flow. Gallbladder: The gallbladder is normal without stones, sludge, wall thickening, or pericholecystic fluid. Biliary ducts: Intrahepatic bile ducts are non-dilated. Extrahepatic bile duct caliber measures 4.6 mm. Normal is 6-7 mm or less in diameter, or 10 mm or less post-cholecystectomy. Pancreas: Visualized portions of the pancreas are sonographically normal. Spleen: Spleen is enlarged measuring 17.2 x 17.2 x 6.6 cm. Splenic volume is 1013 cc, previously 1803 cc. Kidneys: Kidneys are normal in size and echotexture. Right kidney measures 9.1 cm long; left kidney measures 8.9 cm long. No hydronephrosis or nephrolithiasis. No solid masses. Aorta: Visualized aorta is normal in caliber at less than 3 cm. Iliacs: Proximal common iliac arteries are normal in caliber at less than 2.5 cm. IVC: Intrahepatic inferior vena cava is patent. Miscellaneous: No free abdominal fluid. IMPRESSION: 1. Splenomegaly, though slightly decreased compared to the prior study. 2. Normal gallbladder and liver. Etiology of right upper quadrant pain is not evident. Dictated by: Елена Randolph M.D. on 06/09/2021 at 12:36 Approved by: Елена Randolph M.D. on 06/09/2021 at 12:40
== END ==
PROVIDERS: PCP Internal Medicine; Referring Provider Internal Medicine Hematology & Oncology; Visit Provider Internal Medicine Hematology & Oncology
DX: D47.1 Chronic myeloproliferative disease (principal); R16.1 Splenomegaly, not elsewhere classified; R10.11 Right upper quadrant pain
CPT/HCPCS: 76700

== ENCOUNTER → 2021-10-10 08:04 | Outpatient (CLI) | payer MEDICARE, OTHER, SELFPAY ==
--- NOTE | 2021-10-10 | DI.US.S_ITS ---
PROCEDURE: US ABDOMEN LIMITED INDICATIONS: SPLENOMEGALY TECHNIQUE: Real-time focused scanning was performed of the abdomen, with image documentation. COMPARISON: [facility], , US ABDOMEN LIMITED, 08/23/2020, 12:31. [facility], US, US ABDOMEN LIMITED, 07/21/2020, 11:46. [facility], CT, CT ABDOMEN PELVIS WO CON, 09/10/2020, 8:45. [facility], CT, CT ABDOMEN PELVIS WO CON, 11/03/2020, 9:06. [facility], US, US ABDOMEN COMPLETE, 06/09/2021, 11:08. FINDINGS: The spleen is enlarged, measuring 18.2 cm in greatest length, with a calculated volume of 704 cc. On the prior, the spleen measured up to 17.2 cm, with a calculated volume of 1013 cc. Prior to that, the splenic volume was 1803 cc. IMPRESSION: Splenomegaly, which is improving over time. Dictated by: Gavin Bustamante M.D. on 10/10/2021 at 8:55 Approved by: Gavin Bustamante M.D. on 10/10/2021 at 8:56
== END ==
PROVIDERS: PCP Internal Medicine; Referring Provider Internal Medicine Hematology & Oncology; Visit Provider Internal Medicine Hematology & Oncology
DX: D47.1 Chronic myeloproliferative disease (principal); R16.1 Splenomegaly, not elsewhere classified
CPT/HCPCS: 76705

== ENCOUNTER → 2022-01-27 12:09 | Outpatient (CLI) | payer MEDICARE, OTHER, SELFPAY ==
--- NOTE | 2022-01-27 12:11 | DI.CT.S_ITS ---
PROCEDURE: CT CHEST ABD PEL WO CON INDICATIONS: MYELOFIBROSIS, SPLENOMEGALY TECHNIQUE: After the administration of oral contrast, 5 mm thick sections acquired from the lung apices to the symphysis pubis. 5 mm thick coronal and sagittal reformats acquired, with additional 7 mm coronal MIP reformats through the lungs. For radiation dose reduction, the following was used: automated exposure control, adjustment of mA and/or kV according to patient size. COMPARISON: [facility], CT, CT CHEST ABD PEL W CON, 07/02/2019, 13:02. [facility], CT, CT ABDOMEN PELVIS WO CON, 11/03/2020, 9:06. FINDINGS: Image quality: Excellent. CHEST: Lungs and pleura: Biapical pleural thickening/scarring. 1.1 x 1.3 cm spiculated nodular density in the left upper lobe (3-75); previously demonstrated no solid component. 6 mm ground-glass nodule in the right upper lobe, near the fissure (3-181), unchanged. The remaining punctate (less than 6 mm) bilateral pulmonary nodules are unchanged. No pleural effusions or pneumothorax. Central and peripheral airways are patent are normal in caliber. Mediastinum: Heart size is normal. No pericardial effusion. No mediastinal adenopathy by CT size criteria. Thoracic aorta and central pulmonary arteries are normal in size. Calcified atheromatous change of the aorta. Esophagus is normal in caliber. Trace hiatal hernia. Chest wall: No axillary or supraclavicular adenopathy by size criteria. ABDOMEN: Solid organs: Liver is normal in size. Gallbladder is within normal. Pancreas is normal in contours. Persistent splenomegaly, measuring up to 18 cm. No adrenal nodules. Both kidneys are normal in size, without hydronephrosis or nephrolithiasis. Peritoneum and bowel: No evidence of intestinal obstruction. Sigmoid diverticulosis with mild wall thickening, which may reflect chronic change. No free fluid or air. Nodes and vessels: No retroperitoneal or mesenteric adenopathy by size criteria. Aorta and inferior vena cava are normal in size. Miscellaneous: No ventral hernias. PELVIS: Genitourinary: Bladder wall thickness is normal. Miscellaneous: A small bowel containing right inguinal hernia is seen with fascial defect measuring 1.7 cm. Bones: No suspicious bony lesions. No vertebral body compression fractures. IMPRESSION: 1. Spiculated nodular density in the left upper lobe as detailed above, which now demonstrates a solid component. Consider PET-CT or image guided biopsy for further evaluation. 2. Persistent splenomegaly. 3. Interval extension of small bowel into the previously demonstrated right inguinal hernia. 4. Mild wall thickening of the sigmoid colon, which may reflect chronic change from prior diverticulitis. Dictated by: Blayne Baig M.D. on 01/27/2022 at 15:01 Approved by: Blayne Baig M.D. on 01/27/2022 at 15:30
== END ==
PROVIDERS: PCP Internal Medicine; Referring Provider Internal Medicine Hematology & Oncology; Visit Provider Internal Medicine Hematology & Oncology
DX: R16.1 Splenomegaly, not elsewhere classified; R91.8 Other nonspecific abnormal finding of lung field; K57.30 Diverticulosis of large intestine without perforation or abscess without bleeding; K40.90 Unilateral inguinal hernia, without obstruction or gangrene, not specified as recurrent; D47.1 Chronic myeloproliferative disease
CPT/HCPCS: 71250; 74176

== ENCOUNTER → 2022-06-27 12:51 | Outpatient (CLI) | payer MEDICARE, OTHER, SELFPAY ==
--- NOTE | 2022-06-27 12:54 | DI.CT.S_ITS ---
PROCEDURE: CT CHEST ABD PEL WO CON INDICATIONS: Myelofribrosis TECHNIQUE: After the administration of oral contrast, 5 mm thick sections acquired from the lung apices to the symphysis pubis. 5 mm thick coronal and sagittal reformats acquired, with additional 7 mm coronal MIP reformats through the lungs. For radiation dose reduction, the following was used: automated exposure control, adjustment of mA and/or kV according to patient size. COMPARISON: [facility], [place], HI PET CT FUSION SKULL 2 THIGH, 03/15/2022, 10:13. [facility], CT, CT CHEST ABD PEL WO CON, 01/27/2022, 12:57. FINDINGS: Image quality: Excellent. CHEST: Lungs and pleura: A 1.3 x 1.1 cm spiculated nodule is again identified in the left upper lobe (series 3, image 85), unchanged in size. Multiple smaller nodules are also stable. For example, there is a 0.7 cm ground-glass nodule in the right lower lobe (series 3, image 178). Biapical scars. No pleural effusions or pneumothorax. Central and peripheral airways are patent are normal in caliber. Mediastinum: Heart size is normal. No pericardial effusion. There is moderate coronary artery calcification. No mediastinal adenopathy by CT size criteria. Thoracic aorta and central pulmonary arteries are normal in size. Esophagus is normal in caliber. Small hiatal hernia. Chest wall: No axillary or supraclavicular adenopathy by size criteria. Thyroid gland is unremarkable . ABDOMEN: Solid organs: Liver is normal in size. Gallbladder is contracted . Pancreas is normal in contours. Spleen is enlarged measuring 21.2 cm in length. No adrenal nodules. Both kidneys are normal in size, without hydronephrosis or nephrolithiasis. Peritoneum and bowel: Small and large bowel loops are normal in caliber and wall thickness. Diverticulosis without acute diverticulitis. There is mild thickening of sigmoid colon. No free fluid or air. Nodes and vessels: No retroperitoneal or mesenteric adenopathy by size criteria. Aorta and inferior vena cava are normal in size. Miscellaneous: No ventral hernias. PELVIS: Genitourinary: Bladder wall thickness is normal. Miscellaneous: No adenopathy. There is a small right inguinal hernia containing a short segment of small intestine. Bones: No suspicious bony lesions. No vertebral body compression fractures. IMPRESSION: 1. Stable spiculated nodule in the left upper lobe. Even though this nodule has low FDG uptake, low-grade malignancy such as adenocarcinoma in-situ is not excluded. Recommend continue imaging follow-up. 2. Stable small pulmonary nodules bilaterally. 3. Severe splenomegaly. 4. Diverticulosis without acute diverticulitis. 5. There is mild thickening of sigmoid colon, which is indeterminate in nature. Please consider colonoscopy for follow-up. 6. A right inguinal hernia containing a short segment of small bowel. Dictated by: Qamar Jimenez M.D. on 06/27/2022 at 21:19 Approved by: Qamar Jimenez M.D. on 06/28/2022 at 10:02
== END ==
PROVIDERS: PCP Internal Medicine; Referring Provider Internal Medicine Hematology & Oncology; Visit Provider Internal Medicine Hematology & Oncology
DX: R91.8 Other nonspecific abnormal finding of lung field (principal); D47.1 Chronic myeloproliferative disease; N18.30 Chronic kidney disease, stage 3 unspecified; R16.1 Splenomegaly, not elsewhere classified; K57.90 Diverticulosis of intestine, part unspecified, without perforation or abscess without bleeding; K40.90 Unilateral inguinal hernia, without obstruction or gangrene, not specified as recurrent
CPT/HCPCS: 36415; 71250; 74176; 80053; 84425; 85007; 85025

== ENCOUNTER → 2022-11-06 06:58 | Outpatient (CLI) | payer MEDICARE, OTHER, SELFPAY ==
[2022-11-06 07:42] LABS: Hemoglobin 9.2 g/dL (13.5-17.5); Mean Corpuscular HGB Conc 31.6 % (30-36); Mean Corpuscular Hemoglobin 24.4 PG (26-34); Mean Corpuscular Volume 77.3 fL (80-100); Platelet Count 53 X10^3/uL (150-400); Red Blood Cell Count 3.75 X10^6/uL (4.5-5.9); White Blood Cell Count 25.2 X10^3/uL (4.5-11.0)
[2022-11-06 07:44] LABS: Add Manual Diff / Slide Review YES
[2022-11-06 07:49] LABS: Alanine Aminotransferase 15 IU/L (<50); Albumin 3.9 g/dL (3.5-5.0); Albumin Globulin Ratio 0.9 (1.0-2.8); Alkaline Phosphatase 87 U/L (38-126); Aspartate Aminotransferase 26 IU/L (17-59); BUN Creatinine Ratio 16.3 (6-22); Blood Urea Nitrogen 21 mg/dL (9-20); Calcium 8.4 mg/dL (8.4-10.2); Carbon Dioxide 30 mmol/L (22-32); Chloride 102 mmol/L (98-107); Estimated Glomerular Filt Rate 59 mL/min (>60); Globulin 4.3 g/dL (1.7-4.1); Glucose 98 mg/dL (80-110); HEMOLYSIS < 15 (0-50); Potassium 4.8 mmol/L (3.4-5.1); Sodium 138 mmol/L (137-145); Total Protein 8.2 g/dL (6.3-8.2)
[2022-11-06 08:05] LABS: Free T4, Direct Thyroxine 2.03 ng/dL (0.78-2.19)
[2022-11-06 08:19] LABS: Anisocytosis 2+; Microcytosis 1+; Neutrophils Absolute Manual 10080 /uL (3000-5900); Nucleated Red Blood Cells 4 #/Diff; Total Cells Counted 100
[2022-11-06 08:19] LABS: Thyroid Stimulating Hormone 0.822 uIU/mL (0.47-4.68)
[2022-11-06 08:21] LABS: Tear Drop Cells 1+
[2022-11-06 08:22] LABS: Polychromasia 1+
== END ==
PROVIDERS: Internal Medicine Hematology & Oncology; PCP Internal Medicine; Referring Provider Internal Medicine; Visit Provider Internal Medicine
DX: E03.9 Hypothyroidism, unspecified (principal); D47.1 Chronic myeloproliferative disease
CPT/HCPCS: 36415; 80053; 84439; 84443; 85007; 85025

== ENCOUNTER → 2023-01-10 11:28 | Outpatient (CLI) | payer MEDICARE, OTHER, SELFPAY ==
--- NOTE | 2023-01-10 11:29 | DI.CT.S_ITS ---
PROCEDURE: CT CHEST ABD PEL WO CON INDICATIONS: myelofibrosis, splenomegaly, pulmonary nodules TECHNIQUE: After the administration of oral contrast, 5 mm thick sections acquired from the lung apices to the symphysis pubis. 5 mm thick coronal and sagittal reformats acquired, with additional 7 mm coronal MIP reformats through the lungs. For radiation dose reduction, the following was used: automated exposure control, adjustment of mA and/or kV according to patient size. COMPARISON: [facility], CT, CT CHEST ABD PEL WO CON, 06/27/2022, 14:25. CT 01/27/2022 FINDINGS: Image quality: Excellent. CHEST: Lungs and pleura: Similar 1.3 x 1.0 cm left upper lobe spiculated nodule (5/79). Stable 0.8 cm ground-glass nodule, anterior right lower lobe (5/166). No growing nodules. Mediastinum: Heart size is normal. No pericardial effusion. No mediastinal adenopathy by CT size criteria. Thoracic aorta and central pulmonary arteries are normal in size. Esophagus is normal in caliber. No hiatal hernia. Moderate coronary calcifications for age per in Chest wall: No axillary or supraclavicular adenopathy by size criteria. Thyroid gland is diminutive . ABDOMEN: Solid organs: Liver is normal in size. Gallbladder is unremarkable . Pancreas is normal in contours. The spleen is massive, measuring 11.4 x 19 x 24.6 cm, previously in 10.0 x 16.9 x 21.5 cm. No adrenal nodules. Both kidneys are normal in size, without hydronephrosis or nephrolithiasis. Peritoneum and bowel: Small and large bowel loops are normal in caliber and wall thickness. No free fluid or air. Colonic diverticulosis without evidence of diverticulitis. Nodes and vessels: No retroperitoneal or mesenteric adenopathy by size criteria. Aorta and inferior vena cava are normal in size. Miscellaneous: No ventral hernias. PELVIS: Genitourinary: Bladder wall thickness is normal. Miscellaneous: Right inguinal hernia containing nonobstructed bowel. Bones: No suspicious bony lesions. No vertebral body compression fractures. IMPRESSION: 1. Stable spiculated nodule in the left upper lobe. Stable ground-glass nodule in the right lower lobe. 2. Slight interval increase in size of the spleen, measuring 11.4 x 19 x 24.6 cm, previously in 10.0 x 16.9 x 21.5 cm. 3. Right inguinal hernia containing nonobstructed bowel. Dictated by: Charles Friend M.D. on 01/10/2023 at 14:23 Approved by: Charles Friend M.D. on 01/10/2023 at 14:36
== END ==
PROVIDERS: PCP Internal Medicine; Referring Provider Internal Medicine Hematology & Oncology; Visit Provider Internal Medicine Hematology & Oncology
DX: D47.1 Chronic myeloproliferative disease (principal); R91.8 Other nonspecific abnormal finding of lung field; R16.1 Splenomegaly, not elsewhere classified; K40.90 Unilateral inguinal hernia, without obstruction or gangrene, not specified as recurrent; K57.90 Diverticulosis of intestine, part unspecified, without perforation or abscess without bleeding
CPT/HCPCS: 71250; 74176

== ENCOUNTER → 2023-03-13 06:57 | Outpatient (CLI) | payer MEDICARE, OTHER, SELFPAY ==
[2023-03-13 07:28] LABS: Hemoglobin 9.2 g/dL (13.5-17.5); Mean Corpuscular HGB Conc 32.8 % (30-36); Mean Corpuscular Hemoglobin 25.6 PG (26-34); Red Blood Cell Count 3.58 X10^6/uL (4.5-5.9); Red Cell Distribution Width 20.4 % (11.6-14.8); White Blood Cell Count 11.4 X10^3/uL (4.5-11.0)
[2023-03-13 07:29] LABS: Add Manual Diff / Slide Review YES
[2023-03-13 07:36] LABS: Alanine Aminotransferase 22 IU/L (<50); Albumin 4.2 g/dL (3.5-5.0); Albumin Globulin Ratio 1.1 (1.0-2.8); Alkaline Phosphatase 65 U/L (38-126); Aspartate Aminotransferase 27 IU/L (17-59); BUN Creatinine Ratio 13.9 (6-22); Bilirubin Total 0.9 mg/dL (0.2-1.3); Blood Urea Nitrogen 20 mg/dL (9-20); Calcium 8.5 mg/dL (8.4-10.2); Carbon Dioxide 25 mmol/L (22-32); Chloride 106 mmol/L (98-107); Estimated Glomerular Filt Rate 51 mL/min (>60); Globulin 3.8 g/dL (1.7-4.1); Glucose 92 mg/dL (80-110); HEMOLYSIS < 15 (0-50); Sodium 138 mmol/L (137-145)
[2023-03-13 07:38] LABS: Potassium 5.4 mmol/L (3.4-5.1)
[2023-03-13 07:42] LABS: Neutrophils Absolute Manual 3534 /uL (3000-5900); Nucleated Red Blood Cells 1 #/Diff; RBC Morphology Normal Morphology; Total Cells Counted 100
[2023-03-13 08:02] LABS: Platelet Count 19 X10^3/uL (150-400)
== END ==
PROVIDERS: Internal Medicine Hematology & Oncology; PCP Internal Medicine; Referring Provider Radiology Radiation Oncology; Visit Provider Radiology Radiation Oncology
DX: D47.1 Chronic myeloproliferative disease (principal); D75.81 Myelofibrosis
CPT/HCPCS: 36415; 80053; 85007; 85025

== ENCOUNTER → 2023-03-20 07:00 | Outpatient (CLI) | payer MEDICARE, OTHER, SELFPAY ==
[2023-03-20 08:15] LABS: Hematocrit 26.9 % (41-53); Hemoglobin 8.8 g/dL (13.5-17.5); Mean Corpuscular HGB Conc 32.9 % (30-36); Mean Corpuscular Hemoglobin 25.6 PG (26-34); Mean Corpuscular Volume 77.8 fL (80-100); Red Blood Cell Count 3.45 X10^6/uL (4.5-5.9); White Blood Cell Count 11.6 X10^3/uL (4.5-11.0)
[2023-03-20 08:26] LABS: Add Manual Diff / Slide Review YES; Platelet Count 14 X10^3/uL (150-400)
[2023-03-20 09:03] LABS: Neutrophils Absolute Manual 4872 /uL (3000-5900); Nucleated Red Blood Cells 4 #/Diff; Total Cells Counted 100
[2023-03-20 09:04] LABS: Anisocytosis 2+; Microcytosis 1+; Platelet Estimate Decreased on smear; Tear Drop Cells 1+
== END ==
PROVIDERS: PCP Internal Medicine; Referring Provider Radiology Radiation Oncology; Visit Provider Radiology Radiation Oncology
DX: D75.81 Myelofibrosis (principal)
CPT/HCPCS: 36415; 85007; 85025

== ENCOUNTER → 2023-04-02 09:04 | Outpatient (CLI) | payer MEDICARE, OTHER, SELFPAY ==
[2023-04-02 10:22] LABS: Hematocrit 26.8 % (41-53); Mean Corpuscular HGB Conc 33.7 % (30-36); Mean Corpuscular Hemoglobin 26.4 PG (26-34); Mean Corpuscular Volume 78.4 fL (80-100); Red Blood Cell Count 3.41 X10^6/uL (4.5-5.9); Red Cell Distribution Width 20.9 % (11.6-14.8); White Blood Cell Count 12.3 X10^3/uL (4.5-11.0)
[2023-04-02 10:28] LABS: Add Manual Diff / Slide Review YES
[2023-04-02 10:43] LABS: Anisocytosis 2+; Neutrophils Absolute Manual 3936 /uL (3000-5900); Nucleated Red Blood Cells 1 #/Diff; Polychromasia 2+; Tear Drop Cells 2+; Total Cells Counted 100
[2023-04-02 10:45] LABS: Platelet Count 9 X10^3/uL (150-400)
== END ==
PROVIDERS: PCP Internal Medicine; Referring Provider Radiology Radiation Oncology; Visit Provider Radiology Radiation Oncology
DX: Z15.89 Genetic susceptibility to other disease (principal)
CPT/HCPCS: 36415; 85007; 85025

== ENCOUNTER → 2023-08-02 07:00 | Outpatient (CLI) | payer MEDICARE, OTHER, SELFPAY ==
--- NOTE | 2023-08-02 07:02 | DI.CT.S_ITS ---
PROCEDURE: CT ABDOMEN PELVIS WO CON INDICATIONS: Myelofibrosis TECHNIQUE: Axial sections were acquired from the lung bases to the pubic symphysis. Coronal and sagittal reformats were performed. For radiation dose reduction, the following was used: automated exposure control, adjustment of mA and/or kV according to patient size. COMPARISON: [facility], CT, CT CHEST ABD PEL WO CON, 01/10/2023, 12:10. [facility], CT, CT ABDOMEN PELVIS WO CON, 11/03/2020, 9:06. FINDINGS: Image quality: Excellent. Lung bases: Unremarkable. Heart: No significant findings. Abdomen: Liver: No solid mass. Gallbladder and biliary tree: No gallstones or biliary dilation. Spleen: Marked splenomegaly, measuring 23 x 10.2 x 17.7 centimeter (2438 cc volume), previously 24.6 x 11.4 x 19 centimeter. Pancreas: No ductal dilation. Adrenal glands: No adrenal nodules. Kidneys: No hydronephrosis. No solid mass. No complex renal cysts which requires follow-up. Stomach and Bowel: Colonic diverticulosis without evidence of diverticulitis. Large duodenal diverticulum. Peritoneum: No abnormal intraperitoneal fluid. No free air. Ventral Wall: No hernia. Abdominal Nodes: No enlarged retroperitoneal or mesenteric lymph nodes. Vessels: Aorta and inferior vena cava are normal in size. PELVIS: Pelvic Organs: Unremarkable. Pelvic Nodes: Unremarkable. Miscellaneous: Moderate right inguinal hernia containing a moderate segment of nonobstructed small bowel. Bones: Unremarkable. IMPRESSION: Massive splenomegaly, volume of 2435 cc. This is slightly decreased from prior. Dictated by: Charles Friend M.D. on 08/02/2023 at 9:17 Approved by: Charles Friend M.D. on 08/02/2023 at 9:25
== END ==
PROVIDERS: PCP Internal Medicine; Referring Provider Internal Medicine Hematology & Oncology; Visit Provider Internal Medicine Hematology & Oncology
DX: D75.81 Myelofibrosis (principal); Z15.89 Genetic susceptibility to other disease; R16.1 Splenomegaly, not elsewhere classified
CPT/HCPCS: 74176

== ENCOUNTER → 2023-09-26 06:58 | Outpatient (CLI) | payer MEDICARE, OTHER, SELFPAY ==
[2023-09-26 08:11] LABS: Hematocrit 23.2 % (41-53); Hemoglobin 7.6 g/dL (13.5-17.5); Mean Corpuscular Hemoglobin 25.4 PG (26-34); Mean Corpuscular Volume 77.1 fL (80-100); Red Blood Cell Count 3.01 X10^6/uL (4.5-5.9); Red Cell Distribution Width 19.8 % (11.6-14.8); White Blood Cell Count 10.7 X10^3/uL (4.5-11.0)
[2023-09-26 08:57] LABS: Add Manual Diff / Slide Review YES; Platelet Count 20 X10^3/uL (150-400)
[2023-09-26 09:29] LABS: Neutrophils Absolute Manual 4708 /uL (3000-5900); Nucleated Red Blood Cells 4 #/Diff; Platelet Estimate Decreased on smear; Total Cells Counted 100
[2023-09-26 09:31] LABS: Anisocytosis 2+; Microcytosis 1+; Tear Drop Cells 1+
[2023-09-26 09:32] LABS: Polychromasia 1+
== END ==
PROVIDERS: PCP Internal Medicine; Referring Provider Internal Medicine Hematology & Oncology; Visit Provider Internal Medicine Hematology & Oncology
DX: Z15.89 Genetic susceptibility to other disease (principal); D75.81 Myelofibrosis; M1A.00X0 Idiopathic chronic gout, unspecified site, without tophus (tophi)
CPT/HCPCS: 36415; 85007; 85025

== ENCOUNTER → 2023-10-03 06:59 | Outpatient (CLI) | payer MEDICARE, OTHER, SELFPAY ==
[2023-10-03 07:51] LABS: Hematocrit 24.7 % (41-53); Hemoglobin 8.1 g/dL (13.5-17.5); Mean Corpuscular HGB Conc 32.6 % (30-36); Mean Corpuscular Hemoglobin 25.4 PG (26-34); Mean Corpuscular Volume 77.8 fL (80-100); Red Blood Cell Count 3.17 X10^6/uL (4.5-5.9); Red Cell Distribution Width 20.2 % (11.6-14.8); White Blood Cell Count 15.8 X10^3/uL (4.5-11.0)
[2023-10-03 09:12] LABS: Add Manual Diff / Slide Review YES; Platelet Count 30 X10^3/uL (150-400)
[2023-10-03 09:16] LABS: Microcytosis 1+; Neutrophils Absolute Manual 7742 /uL (3000-5900); Total Cells Counted 100
[2023-10-03 09:17] LABS: Platelet Estimate Decreased on smear; Tear Drop Cells 1+
== END ==
PROVIDERS: PCP Internal Medicine; Referring Provider Internal Medicine Hematology & Oncology; Visit Provider Internal Medicine Hematology & Oncology
DX: Z15.89 Genetic susceptibility to other disease (principal); D75.81 Myelofibrosis; M1A.00X0 Idiopathic chronic gout, unspecified site, without tophus (tophi)
CPT/HCPCS: 36415; 85007; 85025

== ENCOUNTER → 2023-10-10 07:00 | Outpatient (CLI) | payer MEDICARE, OTHER, SELFPAY ==
[2023-10-10 10:16] LABS: Add Manual Diff / Slide Review NO; Basophils Absolute Auto 3500 /uL (0-100); Basophils Percent Auto 16.4 % (0-2); Eosinophils Absolute Auto 500 /uL (0-450); Eosinophils Percent Auto 2.4 % (2-4); Hematocrit 25.4 % (41-53); Hemoglobin 8.2 g/dL (13.5-17.5); Lymphocytes Absolute Auto 1500 /uL (1100-4500); Lymphocytes Percent Auto 7.1 % (25-40); Mean Corpuscular HGB Conc 32.4 % (30-36); Mean Corpuscular Hemoglobin 25.2 PG (26-34); Mean Corpuscular Volume 77.7 fL (80-100); Monocytes Absolute Auto 4200 /uL (0-900); Monocytes Percent Auto 19.8 % (3-14); Neutrophils Absolute Auto 11500 /uL (1500-7000); Neutrophils Percent Auto 54.3 % (50-75); Platelet Count 47 X10^3/uL (150-400); Red Blood Cell Count 3.27 X10^6/uL (4.5-5.9); Red Cell Distribution Width 20.5 % (11.6-14.8); White Blood Cell Count 21.2 X10^3/uL (4.5-11.0)
[2023-10-10 11:12] LABS: Anisocytosis 1+; Microcytosis 1+; Tear Drop Cells 1+
== END ==
PROVIDERS: PCP Internal Medicine; Referring Provider Internal Medicine Hematology & Oncology; Visit Provider Internal Medicine Hematology & Oncology
DX: Z15.89 Genetic susceptibility to other disease (principal); D75.81 Myelofibrosis; M1A.00X0 Idiopathic chronic gout, unspecified site, without tophus (tophi)
CPT/HCPCS: 36415; 85025

== ENCOUNTER → 2023-10-26 06:57 | Outpatient (CLI) | payer MEDICARE, OTHER, SELFPAY ==
[2023-10-26 08:45] LABS: Alanine Aminotransferase 16 IU/L (<50); Albumin 3.9 g/dL (3.5-5.0); Alkaline Phosphatase 90 U/L (38-126); Aspartate Aminotransferase 22 IU/L (17-59); BUN Creatinine Ratio 14.5 (6-22); Bilirubin Total 0.9 mg/dL (0.2-1.3); Blood Urea Nitrogen 21 mg/dL (9-20); Calcium 8.9 mg/dL (8.4-10.2); Carbon Dioxide 25 mmol/L (22-32); Chloride 101 mmol/L (98-107); Estimated Glomerular Filt Rate 51 mL/min (>60); Globulin 3.9 g/dL (1.7-4.1); Glucose 89 mg/dL (80-110); HEMOLYSIS < 15 (0-50); Potassium 4.4 mmol/L (3.4-5.1); Sodium 137 mmol/L (137-145); Total Protein 7.8 g/dL (6.3-8.2); Uric Acid 10.9 mg/dL (3.5-8.5)
== END ==
PROVIDERS: PCP Internal Medicine; Referring Provider Internal Medicine Hematology & Oncology; Visit Provider Internal Medicine Hematology & Oncology
DX: Z15.89 Genetic susceptibility to other disease (principal); D75.81 Myelofibrosis; M1A.00X0 Idiopathic chronic gout, unspecified site, without tophus (tophi)
CPT/HCPCS: 36415; 80053; 84550

== ENCOUNTER → 2023-11-02 06:56 | Outpatient (CLI) | payer MEDICARE, OTHER, SELFPAY ==
[2023-11-02 08:51] LABS: Hematocrit 26.8 % (41-53); Hemoglobin 8.7 g/dL (13.5-17.5); Mean Corpuscular HGB Conc 32.4 % (30-36); Mean Corpuscular Hemoglobin 25.4 PG (26-34); Mean Corpuscular Volume 78.5 fL (80-100); Red Blood Cell Count 3.41 X10^6/uL (4.5-5.9); Red Cell Distribution Width 20.8 % (11.6-14.8); White Blood Cell Count 16.2 X10^3/uL (4.5-11.0)
[2023-11-02 09:22] LABS: Cholesterol 104 mg/dL (140-199); HDL Cholesterol 43 mg/dL (40-60); LDL Cholesterol Calculated 37 mg/dL (<100); Triglycerides 119 mg/dL (35-150)
[2023-11-02 09:52] LABS: Thyroid Stimulating Hormone 1.72 uIU/mL (0.47-4.68)
[2023-11-02 10:17] LABS: Add Manual Diff / Slide Review YES; Platelet Count 31 X10^3/uL (150-400)
[2023-11-02 10:24] LABS: Neutrophils Absolute Manual 7128 /uL (3000-5900); Total Cells Counted 100
[2023-11-02 10:25] LABS: Anisocytosis 1+; Platelet Estimate Decreased on smear
[2023-11-02 10:26] LABS: Microcytosis 2+
[2023-11-02 10:27] LABS: Polychromasia 1+
[2023-11-02 10:32] LABS: Tear Drop Cells 1+
[2023-11-02 15:15] LABS: Free T4, Direct Thyroxine 1.62 ng/dL (0.78-2.19)
== END ==
PROVIDERS: PCP Internal Medicine; Referring Provider Internal Medicine Hematology & Oncology; Visit Provider Internal Medicine Hematology & Oncology
DX: E03.9 Hypothyroidism, unspecified (principal); Z15.89 Genetic susceptibility to other disease; D75.81 Myelofibrosis; M1A.00X0 Idiopathic chronic gout, unspecified site, without tophus (tophi); Z13.6 Encounter for screening for cardiovascular disorders; Z13.220 Encounter for screening for lipoid disorders
CPT/HCPCS: 36415; 80061; 84439; 84443; 85007; 85025

== ENCOUNTER → 2023-11-16 06:53 | Outpatient (CLI) | payer MEDICARE, OTHER, SELFPAY ==
[2023-11-16 09:01] LABS: Hematocrit 26.8 % (41-53); Hemoglobin 8.8 g/dL (13.5-17.5); Mean Corpuscular HGB Conc 32.9 % (30-36); Mean Corpuscular Hemoglobin 26.1 PG (26-34); Mean Corpuscular Volume 79.3 fL (80-100); Red Blood Cell Count 3.38 X10^6/uL (4.5-5.9); Red Cell Distribution Width 20.5 % (11.6-14.8); White Blood Cell Count 15.1 X10^3/uL (4.5-11.0)
[2023-11-16 09:39] LABS: Platelet Count 35 X10^3/uL (150-400)
[2023-11-16 09:40] LABS: Add Manual Diff / Slide Review YES
[2023-11-16 10:07] LABS: Anisocytosis 1+; Microcytosis 1+; Neutrophils Absolute Manual 7701 /uL (3000-5900); Nucleated Red Blood Cells 2 #/Diff; Tear Drop Cells 1+; Total Cells Counted 100
== END ==
PROVIDERS: PCP Internal Medicine; Referring Provider Internal Medicine Hematology & Oncology; Visit Provider Internal Medicine Hematology & Oncology
DX: D75.81 Myelofibrosis (principal); M1A.00X0 Idiopathic chronic gout, unspecified site, without tophus (tophi); Z15.89 Genetic susceptibility to other disease
CPT/HCPCS: 36415; 85007; 85025

== ENCOUNTER → 2023-12-07 06:58 | Outpatient (CLI) | payer MEDICARE, OTHER, SELFPAY ==
[2023-12-07 08:53] LABS: Alanine Aminotransferase 19 IU/L (<50); Alkaline Phosphatase 89 U/L (38-126); Aspartate Aminotransferase 28 IU/L (17-59); BUN Creatinine Ratio 15.3 (6-22); Bilirubin Total 0.8 mg/dL (0.2-1.3); Blood Urea Nitrogen 24 mg/dL (9-20); Calcium 8.8 mg/dL (8.4-10.2); Carbon Dioxide 26 mmol/L (22-32); Chloride 101 mmol/L (98-107); Estimated Glomerular Filt Rate 46 mL/min (>60); Glucose 89 mg/dL (80-110); HEMOLYSIS < 15 (0-50); Potassium 4.8 mmol/L (3.4-5.1); Sodium 138 mmol/L (137-145); Uric Acid 11.4 mg/dL (3.5-8.5)
== END ==
LOC: LAB 07:00
PROVIDERS: PCP Internal Medicine; Referring Provider Internal Medicine Hematology & Oncology; Visit Provider Internal Medicine Hematology & Oncology
DX: Z15.89 Genetic susceptibility to other disease (principal); D75.81 Myelofibrosis; M1A.00X0 Idiopathic chronic gout, unspecified site, without tophus (tophi)
CPT/HCPCS: 36415; 80053; 84550

== ENCOUNTER → 2023-12-11 06:52 | Outpatient (CLI) | payer MEDICARE, OTHER, SELFPAY ==
[2023-12-11 08:19] LABS: Hemoglobin 9.3 g/dL (13.5-17.5); Mean Corpuscular HGB Conc 33.2 % (30-36); Mean Corpuscular Hemoglobin 25.9 PG (26-34); Platelet Count 37 X10^3/uL (150-400); Red Blood Cell Count 3.59 X10^6/uL (4.5-5.9); Red Cell Distribution Width 19.7 % (11.6-14.8); White Blood Cell Count 16.9 X10^3/uL (4.5-11.0)
[2023-12-11 08:50] LABS: Add Manual Diff / Slide Review YES
[2023-12-11 09:02] LABS: Neutrophils Absolute Manual 7774 /uL (3000-5900); Nucleated Red Blood Cells 1 #/Diff; Total Cells Counted 100
[2023-12-11 09:03] LABS: Microcytosis 1+; Platelet Estimate Decreased on smear; Tear Drop Cells 1+
[2023-12-11 09:04] LABS: Anisocytosis 1+
== END ==
LOC: LAB 06:54
PROVIDERS: PCP Internal Medicine; Referring Provider Internal Medicine Hematology & Oncology; Visit Provider Internal Medicine Hematology & Oncology
DX: Z15.89 Genetic susceptibility to other disease (principal)
CPT/HCPCS: 36415; 85007; 85025

== ENCOUNTER → 2023-12-20 06:54 | Outpatient (CLI) | payer MEDICARE, OTHER, SELFPAY ==
[2023-12-20 08:26] LABS: Hematocrit 26.2 % (41-53); Hemoglobin 8.5 g/dL (13.5-17.5); Mean Corpuscular HGB Conc 32.5 % (30-36); Mean Corpuscular Hemoglobin 25.2 PG (26-34); Mean Corpuscular Volume 77.6 fL (80-100); Red Blood Cell Count 3.38 X10^6/uL (4.5-5.9); Red Cell Distribution Width 19.9 % (11.6-14.8); White Blood Cell Count 13.8 X10^3/uL (4.5-11.0)
[2023-12-20 08:38] LABS: Add Manual Diff / Slide Review YES; Platelet Count 33 X10^3/uL (150-400)
[2023-12-20 10:24] LABS: Neutrophils Absolute Manual 7728 /uL (3000-5900); Nucleated Red Blood Cells 3 #/Diff; Total Cells Counted 100
[2023-12-20 10:25] LABS: Anisocytosis 1+; Microcytosis 1+; Tear Drop Cells 1+
== END ==
PROVIDERS: PCP Internal Medicine; Referring Provider Internal Medicine Hematology & Oncology; Visit Provider Internal Medicine Hematology & Oncology
DX: Z15.89 Genetic susceptibility to other disease (principal); D75.81 Myelofibrosis
CPT/HCPCS: 36415; 85007; 85025

== ENCOUNTER → 2024-01-04 06:56 | Outpatient (CLI) | payer MEDICARE, OTHER, SELFPAY ==
[2024-01-04 08:01] LABS: Hematocrit 27.1 % (41-53); Hemoglobin 8.9 g/dL (13.5-17.5); Mean Corpuscular HGB Conc 32.6 % (30-36); Mean Corpuscular Hemoglobin 25.3 PG (26-34); Mean Corpuscular Volume 77.5 fL (80-100); Platelet Count 38 X10^3/uL (150-400); Red Cell Distribution Width 20.2 % (11.6-14.8); White Blood Cell Count 15.6 X10^3/uL (4.5-11.0)
[2024-01-04 08:05] LABS: Add Manual Diff / Slide Review YES
[2024-01-04 08:45] LABS: Neutrophils Absolute Manual 6396 /uL (3000-5900); Nucleated Red Blood Cells 1 #/Diff; Total Cells Counted 100
[2024-01-04 08:47] LABS: Anisocytosis 1+; Platelet Estimate Decreased on smear
[2024-01-04 08:48] LABS: Microcytosis 1+; Tear Drop Cells 1+
== END ==
PROVIDERS: PCP Internal Medicine; Referring Provider Internal Medicine Hematology & Oncology; Visit Provider Internal Medicine Hematology & Oncology
DX: Z15.89 Genetic susceptibility to other disease (principal); D75.81 Myelofibrosis
CPT/HCPCS: 36415; 85007; 85025

== ENCOUNTER → 2024-01-18 06:55 | Outpatient (CLI) | payer MEDICARE, OTHER, SELFPAY ==
[2024-01-18 08:21] LABS: Hematocrit 24.9 % (41-53); Hemoglobin 8.2 g/dL (13.5-17.5); Mean Corpuscular HGB Conc 33.1 % (30-36); Mean Corpuscular Hemoglobin 25.3 PG (26-34); Mean Corpuscular Volume 76.3 fL (80-100); Platelet Count 40 X10^3/uL (150-400); Red Blood Cell Count 3.26 X10^6/uL (4.5-5.9); Red Cell Distribution Width 20.4 % (11.6-14.8); White Blood Cell Count 18.5 X10^3/uL (4.5-11.0)
[2024-01-18 08:22] LABS: Add Manual Diff / Slide Review YES
[2024-01-18 08:40] LABS: Neutrophils Absolute Manual 5920 /uL (3000-5900); Nucleated Red Blood Cells 1 #/Diff; Total Cells Counted 50
[2024-01-18 08:41] LABS: Anisocytosis 1+; Tear Drop Cells 1+
== END ==
PROVIDERS: PCP Internal Medicine; Referring Provider Internal Medicine Hematology & Oncology; Visit Provider Internal Medicine Hematology & Oncology
DX: Z15.89 Genetic susceptibility to other disease (principal); D75.81 Myelofibrosis
CPT/HCPCS: 36415; 85007; 85025

== ENCOUNTER → 2024-01-31 06:58 | Outpatient (CLI) | payer MEDICARE, OTHER, SELFPAY ==
[2024-01-31 09:34] LABS: Hemoglobin 7.9 g/dL (13.5-17.5); Mean Corpuscular HGB Conc 33.1 % (30-36); Mean Corpuscular Hemoglobin 25.3 PG (26-34); Mean Corpuscular Volume 76.5 fL (80-100); Platelet Count 39 X10^3/uL (150-400); Red Blood Cell Count 3.14 X10^6/uL (4.5-5.9); Red Cell Distribution Width 19.3 % (11.6-14.8); White Blood Cell Count 19.2 X10^3/uL (4.5-11.0)
[2024-01-31 09:45] LABS: Add Manual Diff / Slide Review YES
[2024-01-31 10:53] LABS: Neutrophils Absolute Manual 11712 /uL (3000-5900); Nucleated Red Blood Cells 1 #/Diff; Total Cells Counted 100
[2024-01-31 10:54] LABS: Anisocytosis 1+; Tear Drop Cells 1+
== END ==
PROVIDERS: PCP Internal Medicine; Referring Provider Internal Medicine Hematology & Oncology; Visit Provider Internal Medicine Hematology & Oncology
DX: D75.81 Myelofibrosis (principal); Z15.89 Genetic susceptibility to other disease
CPT/HCPCS: 36415; 85007; 85025

== ENCOUNTER → 2024-02-06 06:58 | Outpatient (CLI) | payer MEDICARE, OTHER, SELFPAY ==
[2024-02-06 07:53] LABS: Hematocrit 23.3 % (41-53); Hemoglobin 7.7 g/dL (13.5-17.5); Mean Corpuscular HGB Conc 33.1 % (30-36); Mean Corpuscular Hemoglobin 25.7 PG (26-34); Mean Corpuscular Volume 77.6 fL (80-100); Platelet Count 38 X10^3/uL (150-400); Red Blood Cell Count 3.01 X10^6/uL (4.5-5.9); Red Cell Distribution Width 18.9 % (11.6-14.8); White Blood Cell Count 18.1 X10^3/uL (4.5-11.0)
[2024-02-06 07:54] LABS: Add Manual Diff / Slide Review YES
[2024-02-06 12:29] LABS: Neutrophils Absolute Manual 7964 /uL (3000-5900); Total Cells Counted 100
[2024-02-06 12:30] LABS: Anisocytosis 1+; Tear Drop Cells 1+
== END ==
PROVIDERS: PCP Internal Medicine; Referring Provider Internal Medicine Hematology & Oncology; Visit Provider Internal Medicine Hematology & Oncology
DX: Z15.89 Genetic susceptibility to other disease (principal); D75.81 Myelofibrosis
CPT/HCPCS: 36415; 85007; 85025

== ENCOUNTER → 2024-02-14 06:57 | Outpatient (CLI) | payer MEDICARE, OTHER, SELFPAY ==
[2024-02-14 08:37] LABS: Hematocrit 27.6 % (41-53); Mean Corpuscular HGB Conc 32.5 % (30-36); Mean Corpuscular Hemoglobin 25.5 PG (26-34); Mean Corpuscular Volume 78.4 fL (80-100); Red Blood Cell Count 3.52 X10^6/uL (4.5-5.9); Red Cell Distribution Width 20.1 % (11.6-14.8); White Blood Cell Count 16.3 X10^3/uL (4.5-11.0)
[2024-02-14 08:38] LABS: Add Manual Diff / Slide Review YES
[2024-02-14 08:44] LABS: Platelet Count 29 X10^3/uL (150-400)
[2024-02-14 09:15] LABS: Neutrophils Absolute Manual 6357 /uL (3000-5900); Total Cells Counted 100
[2024-02-14 09:16] LABS: Platelet Estimate Decreased on smear; RBC Morphology Normal Morphology
== END ==
LOC: LAB 06:58
PROVIDERS: PCP Internal Medicine; Referring Provider Internal Medicine Hematology & Oncology; Visit Provider Internal Medicine Hematology & Oncology
DX: Z15.89 Genetic susceptibility to other disease (principal); D75.81 Myelofibrosis
CPT/HCPCS: 36415; 85007; 85025

== ENCOUNTER 2024-02-16 06:55 | Emergency (ER) | payer MEDICARE, OTHER, SELFPAY ==
[2024-02-16] VITALS (8 sets, daily range): BP systolic 119–161; BP diastolic 56–67; PULSE 62–71; RESP 16–19; TEMP 36.3; O2SAT 99–100; BMI 20.8
--- NOTE | 2024-02-16 07:18 | DI.CT.S_ITS ---
PROCEDURE: CT ABDOMEN PELVIS W CON INDICATIONS: abd pain massive splenomegaly TECHNIQUE: After the administration of intravenous contrast, axial sections acquired from the lung bases to the pubic symphysis. Coronal and sagittal reformats were performed. For radiation dose reduction, the following was used: automated exposure control, adjustment of mA and/or kV according to patient size. COMPARISON: [facility], CT, CT ABDOMEN PELVIS WO [facility], 08/02/2023, 7:06. FINDINGS: Image quality: Diagnostic. Lower Chest: Right basilar dependent atelectasis is seen. No pleural effusion or pneumothorax. Heart size is normal, no pericardial effusion. ABDOMEN: Liver: There is hepatomegaly. No gross solid appearing hepatic lesion. Gallbladder: No radiopaque gallstones or wall thickening. Biliary ducts: No biliary dilation. Pancreas: No ductal dilation. Spleen: More acid splenomegaly is seen with spleen measures up to 24.3 cm in craniocaudal dimension. Subtle hypodense areas are noted in upper to mid portion of spleen which may represent focal areas of splenic infarcts. Significant mass effect on the adjacent left up on no structures are noted. Adrenal Glands: No adrenal nodules. Kidneys and Ureters: No hydronephrosis. No solid mass. No complex renal cystic lesion which requires follow up. Stomach and Bowel: There is no bowel obstruction. No abnormal bowel wall thickening or mesenteric fat stranding. Appendix is not definitively seen. No inflammatory changes are noted in right lower quadrant abdomen. No abscess collection. Peritoneum: No abnormal intraperitoneal fluid. No free air. Ventral Wall: No significant ventral hernia. Abdominal Nodes: No retroperitoneal or mesenteric adenopathy by size criteria. Vessels: Aorta and inferior vena cava are normal in size. PELVIS: Pelvic Organs: Unremarkable. Bladder: No bladder wall thickening, accounting for underdistention. Pelvic Nodes: No enlarged lymph nodes. Miscellaneous: Moderate size right inguinal hernia is seen containing a short segment of spouse bowel loop. No evidence of gross strangulation or incarceration. Bones: No aggressive osseous abnormality. IMPRESSION: 1. Massive splenomegaly increased in craniocaudal dimension compared to 2022 study. Focal areas of hypodensity in upper to mid portion of spleen which may represent small area of splenic infarcts. 2. No bowel obstruction or abnormal bowel wall thickening. No free fluid or free air. Right inguinal hernia containing a short segment of small bowel loops without evidence of incarceration. Dictated by: Arsenio Hawthorne M.D. on 02/16/2024 at 8:40 Approved by: Arsenio Hawthorne M.D. on 02/16/2024 at 8:48
[2024-02-16 07:28] LABS: Hematocrit 27.7 % (41-53); Hemoglobin 9.1 g/dL (13.5-17.5); Mean Corpuscular HGB Conc 32.8 % (30-36); Mean Corpuscular Hemoglobin 25.6 PG (26-34); Mean Corpuscular Volume 78.1 fL (80-100); Red Blood Cell Count 3.54 X10^6/uL (4.5-5.9); Red Cell Distribution Width 19.7 % (11.6-14.8); White Blood Cell Count 15.9 X10^3/uL (4.5-11.0)
[2024-02-16 07:30] LABS: Add Manual Diff / Slide Review YES; Platelet Count 35 X10^3/uL (150-400)
[2024-02-16 07:40] LABS: Alanine Aminotransferase 20 IU/L (<50); Albumin Globulin Ratio 0.9 (1.0-2.8); Alkaline Phosphatase 112 U/L (38-126); Aspartate Aminotransferase 26 IU/L (17-59); BUN Creatinine Ratio 13.8 (6-22); Bilirubin Total 0.8 mg/dL (0.2-1.3); Blood Urea Nitrogen 22 mg/dL (9-20); Calcium 8.6 mg/dL (8.4-10.2); Carbon Dioxide 24 mmol/L (22-32); Chloride 105 mmol/L (98-107); Estimated Glomerular Filt Rate 45 mL/min (>60); Globulin 4.5 g/dL (1.7-4.1); Glucose 97 mg/dL (80-110); HEMOLYSIS < 15 (0-50); Lipase 30 U/L (23-300); Potassium 4.8 mmol/L (3.4-5.1); Sodium 137 mmol/L (137-145); Total Protein 8.5 g/dL (6.3-8.2)
[2024-02-16 07:48] LABS: Anisocytosis 1+; Neutrophils Absolute Manual 6678 /uL (3000-5900); Nucleated Red Blood Cells 1 #/Diff; Poikilocytosis 1+; Total Cells Counted 50
[2024-02-16] MEDS: SODIUM CHLORIDE 0.9% 1,000 ML 1000 ML IV (08:00)
[2024-02-16 09:21] LABS: Bacteria Urine None Seen; RBC Urine None Seen (0-5/HPF); Squamous Epithelial Cell Urine None Seen (0-5/HPF); Urine Volume 10mL (spun); WBC Urine 0-1/HPF (0-5/HPF)
[2024-02-16 09:22] LABS: Amorphous Sediment Urine 2+; Culture Indicated Urine Specimen Cultured
--- NOTE | 2024-02-16 18:35 | ED_ITS ---
HPI - Abdominal Pain General Chief Complaint: Abdominal Pain Stated Complaint: possible ruptured spleen sent by doctor Time Seen by Provider: 02/16/24 07:00 Mode of arrival: Ambulatory History of Present Illness HPI narrative: A 73-year-old male with myelofibrosis and massive splenomegaly. Also has thrombocytopenia. For the last 4 days he has been having some increasing left upper quadrant abdominal pain. This is not been accompanied by fevers nausea vomiting urinary changes or changes in his bowel habits. He does note chronic early satiety probably from his splenomegaly. His oncologist recommended he come here to be seen with concern for possible splenic rupture. Related Data Home Medications Medication Instructions Recorded Confirmed colchicine 0.6 mg capsule 0.6 mg PO DAILY 08/20/23 11/05/23 (Mitigare) ondansetron HCl 4 mg tablet 4 mg PO Q6H PRN nausea and 08/20/23 11/05/23 vomiting, on Fedratinib ruxolitinib 10 mg tablet (Jakafi) 10 mg PO DAILY 08/20/23 11/05/23 Previous Rx's Medication Instructions Recorded pacritinib 100 mg capsule 100 mg PO BID myelofibrosis #60 04/12/23 caps allopurinol 100 mg tablet 50 mg (1/2 x 100 mg) PO Q OTHER 06/19/23 DAY #25 tabs levothyroxine 50 mcg tablet 100 mcg (2 x 50 mcg) PO DAILY #180 10/01/23 (Synthroid) tabs fluticasone propionate 50 2 spray intranasal BEDTIME #48 11/29/23 mcg/actuation nasal grams spray,suspension Allergies Allergy/AdvReac Type Severity Reaction Status Date / Time No Known Drug Allergies Allergy Verified 11/05/23 09:27 Patient History Medical History (Updated 02/16/24 @ 10:07 by Derrick Huff MD) Hyperuricemia Thrombocytopenia Anemia due to multiple mechanisms Itchy skin Anemia in chronic kidney disease (CKD) Left upper lobe pulmonary nodule Right inguinal hernia Diverticular disease of colon Gout CKD (chronic kidney disease) stage 3, GFR 30-59 ml/min Asthma Splenomegaly (10/08/17) 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) Hypothyroidism (03/06/17) Memory impairment (06/10/15) Rosacea (05/13/15) Primary myelofibrosis GERD (gastroesophageal reflux disease) Surgical History No history of previous surgery (04/01/13) Social History Smoking Status: Former smoker Smoking Status: Former smoker alcohol intake frequency: 0-2 drinks per day Substance Use Type: does not use Exam Narrative Exam Narrative: Alert, no acute distress HEENT: Normocephalic, atraumaitic moist mucus membranes Neck: Supple no midline tenderness Lungs: Clear to ascultaion, no respiratory distress Heart: Regular rhythm and rate no murmur Abdomen: Distended with palpable mass or splenomegaly and hepatomegaly. Bowel sounds are normal abdomen is not tender. Extremeties: Full range of motion no deformity Neuro: Alert and oriented, normal speech moves x4 Initial Vital Signs Initial Vital Signs: Vital Signs Temperature 97.3 F L 02/16/24 07:07 Pulse Rate 71 02/16/24 07:07 Respiratory Rate 18 02/16/24 07:07 Blood Pressure 146/66 H 02/16/24 07:07 Pulse Oximetry 100 02/16/24 07:07 Oxygen Delivery Method Room Air 02/16/24 07:07 Course Orders Ordered: Discontinued Medications Sodium Chloride (Normal Saline 0.9%) 1,000 mls @ 1,000 mls/hr IV BOLUS ONE Stop: 02/16/24 08:38 Last Infusion: 02/16/24 09:00 Dose: Infused Documented By: Admin: 02/16/24 08:00 Dose: 1,000 mls/hr Documented By: CTS Consultations Consultation #1: Case discussed with Hematology, Dr. Leon, recommend he continue previous care. MDM - Abdominal Pain Lab Data Lab results narrative: Patient has [place]ome[place] [address] this is typical for him. Hemoglobin is acceptable at white count is 15.9. Chemistries remarkable for creatinine of 1.59 this is approximately his baseline. 02/16/24 07:16 02/16/24 07:16 Labs: Lab Results 02/16/24 02/16/24 Range/Units 07:16 08:45 WBC 15.9 H (4.5-11.0) X10^3/uL RBC 3.54 L (4.5-5.9) X10^6/uL Hgb 9.1 L (13.5-17.5) g/dL Hct 27.7 L (41-53) % MCV 78.1 L (80-100) fL MCH 25.6 L (26-34) PG MCHC 32.8 (30-36) % RDW 19.7 H (11.6-14.8) % Plt Count 35 L* (150-400) X10^3/uL Neut % (Auto) Not Reportable Lymph % (Auto) Not Reportable [place] % (Auto) Not Reportable Eos % (Auto) Not Reportable Baso % (Auto) Not Reportable Lymph # (Auto) Not Reportable [place] # (Auto) Not Reportable Baso # (Auto) Not Reportable Total Counted 50 Seg Neutrophils % 32.0 L (38-70) % Band Neutrophils % 10.0 H (3-7) % Lymphocytes % (Manual) 18.0 L (25-45) % Atypical Lymphs % 4.0 H ( - 0) % Monocytes % (Manual) 6.0 (2-11) % Eosinophils % (Manual) 2.0 (2-4) % Basophils % (Manual) 28.0 H (0-1) % Neutrophils # (Manual) 6678 H (2073-2399) /uL Nucleated RBCs 1 H ( - 0) #/Diff RBC Morphology Not Reportable Poikilocytosis 1+ H Anisocytosis 1+ H Sodium 137 (137-145) mmol/L Potassium 4.8 (3.4-5.1) mmol/L Chloride 105 (98-107) mmol/L Carbon Dioxide 24 (22-32) mmol/L BUN 22 H (9-20) mg/dL Creatinine 1.59 H (0.66-1.25) mg/dL Estimated GFR 45 L (>60) mL/min BUN/Creatinine Ratio 13.8 (6-22) Glucose 97 (80-110) mg/dL Calcium 8.6 (8.4-10.2) mg/dL Total Bilirubin 0.8 (0.2-1.3) mg/dL AST 26 (17-59) IU/L ALT 20 (<50) IU/L Alkaline Phosphatase 112 (38-126) U/L Total Protein 8.5 H (6.3-8.2) g/dL Albumin 4.0 (3.5-5.0) g/dL Globulin 4.5 H (1.7-4.1) g/dL Albumin/Globulin Ratio 0.9 L (1.0-2.8) Lipase 30 (23-300) U/L Urine RBC None seen (0-5/HPF) Urine WBC 0-1/hpf (0-5/HPF) Ur Squamous Epith Cells None seen (0-5/HPF) Amorphous Sediment 2+ Urine Bacteria None seen (None) Ur Culture Indicated? Specimen cultured Vol Urine Centrifuged 10ml (spun) Point of care testing: Urine Dip Bedside Urine Glucose Negative Bedside Urine Bilirubin - Negative Bedside Urine Ketone - Negative Urine Specific [place] 1.015 Bedside Urine Occult Blood - Negative Bedside Urine pH 6.0 Bedside Urine Protein +/- 15 Bedside Urine Urobilinogen - Negative Bedside Urine Nitrite - Negative Bedside Urine Leukocytes - Negative Esterase Imaging Data CT scan - abdomen/pelvis: My Impression: Independent review shows massive splenomegaly without acute findings Radiologist's Impression: Massive splenomegaly, possible splenic infarcts. MDM Narrative Medical decision making narrative: 73-year-old male with known massive splenomegaly secondary to myelofibrosis presenting for left upper quadrant pain. Primary consideration is for splenic rupture, imaging does not show rupture of the spleen. He is otherwise stable does not appear to be acutely infected, may have small splenic infarcts which are not thought to alter her management at this point. He was discharged home Discharge Plan Departure Patient Disposition: Home Clinical Impression: Abdominal pain Activity Restrictions/Additional Instructions: Workup today is reassuring. We do not see any splenic rupture. As we discussed, continue previous care. Be careful not to injure your abdomen. If you have an increase in pain fevers vomiting or other acute symptoms recheck in the emergency department. To follow up with Hematology soon. Prescriptions: No Action allopurinol 100 mg Tablet 50 mg PO Q OTHER DAY Qty: 25 0RF Rx Instructions: take one half tablet (50mg) every other day levothyroxine [Synthroid] 50 mcg tablet 100 mcg PO DAILY Qty: 180 3RF fluticasone propionate 50 mcg/actuation spray,suspension 2 spray intranasal BEDTIME Qty: 48 6RF Rx Instructions: administer into each nostril ondansetron HCl 4 mg tablet 4 mg PO Q6H PRN (Reason: nausea and vomiting, on Fedratinib) colchicine [Mitigare] 0.6 mg capsule 0.6 mg PO DAILY pacritinib 100 mg Capsule 100 mg PO BID Qty: 60 11RF Jakafi 10 mg tablet 10 mg PO DAILY Referrals: Ulysses Dubois MD [Primary Care Provider] - Stand Alone Forms: Patient Portal/API
== END 2024-02-16 10:10 | disposition home or self-care (01) ==
PROVIDERS: Emergency Provider Emergency Medicine; PCP Internal Medicine
DX: R10.12 Left upper quadrant pain (principal); R16.1 Splenomegaly, not elsewhere classified
CPT/HCPCS: 36415; 74177; 80053; 81003; 81015; 83690; 85007; 85025; 87086; 96360; 99284; Q9967

== ENCOUNTER → 2024-02-21 06:54 | Outpatient (CLI) | payer MEDICARE, OTHER, SELFPAY ==
[2024-02-21 08:08] LABS: Hematocrit 24.3 % (41-53); Mean Corpuscular HGB Conc 32.8 % (30-36); Mean Corpuscular Hemoglobin 25.6 PG (26-34); Mean Corpuscular Volume 77.9 fL (80-100); Red Blood Cell Count 3.12 X10^6/uL (4.5-5.9); Red Cell Distribution Width 19.2 % (11.6-14.8); White Blood Cell Count 13.8 X10^3/uL (4.5-11.0)
[2024-02-21 08:26] LABS: Add Manual Diff / Slide Review YES; Platelet Count 33 X10^3/uL (150-400)
[2024-02-21 08:32] LABS: Neutrophils Absolute Manual 5796 /uL (3000-5900); Total Cells Counted 100
[2024-02-21 08:33] LABS: Anisocytosis 2+
== END ==
PROVIDERS: PCP Internal Medicine; Referring Provider Internal Medicine Hematology & Oncology; Visit Provider Internal Medicine Hematology & Oncology
DX: Z15.89 Genetic susceptibility to other disease (principal); D75.81 Myelofibrosis
CPT/HCPCS: 36415; 85007; 85025

== ENCOUNTER → 2024-02-28 06:58 | Outpatient (CLI) | payer MEDICARE, OTHER, SELFPAY ==
[2024-02-28 08:27] LABS: Basophils Absolute Auto 2700 /uL (0-100); Basophils Percent Auto 16.6 % (0-2); Eosinophils Absolute Auto 200 /uL (0-450); Eosinophils Percent Auto 1.3 % (2-4); Lymphocytes Absolute Auto 1500 /uL (1100-4500); Lymphocytes Percent Auto 9.2 % (25-40); Mean Corpuscular HGB Conc 32.2 % (30-36); Mean Corpuscular Hemoglobin 25.2 PG (26-34); Mean Corpuscular Volume 78.3 fL (80-100); Monocytes Absolute Auto 3800 /uL (0-900); Monocytes Percent Auto 23.7 % (3-14); Neutrophils Absolute Auto 7900 /uL (1500-7000); Neutrophils Percent Auto 49.2 % (50-75); Red Blood Cell Count 3.19 X10^6/uL (4.5-5.9); Red Cell Distribution Width 19.6 % (11.6-14.8)
[2024-02-28 08:59] LABS: Add Manual Diff / Slide Review SLIDE REVIEW; Platelet Count 36 X10^3/uL (150-400)
[2024-02-28 10:43] LABS: Anisocytosis 1+; Poikilocytosis 1+
== END ==
LOC: LAB 07:00
PROVIDERS: PCP Internal Medicine; Referring Provider Internal Medicine Hematology & Oncology; Visit Provider Internal Medicine Hematology & Oncology
DX: Z15.89 Genetic susceptibility to other disease (principal); D75.81 Myelofibrosis
CPT/HCPCS: 36415; 85025

== ENCOUNTER → 2024-03-06 06:58 | Outpatient (CLI) | payer MEDICARE, OTHER, SELFPAY ==
[2024-03-06 07:49] LABS: Add Manual Diff / Slide Review NO; Basophils Absolute Auto 2400 /uL (0-100); Eosinophils Absolute Auto 200 /uL (0-450); Eosinophils Percent Auto 1.9 % (2-4); Hematocrit 22.4 % (41-53); Hemoglobin 7.4 g/dL (13.5-17.5); Lymphocytes Absolute Auto 1200 /uL (1100-4500); Lymphocytes Percent Auto 9.5 % (25-40); Mean Corpuscular HGB Conc 33.2 % (30-36); Mean Corpuscular Hemoglobin 25.3 PG (26-34); Mean Corpuscular Volume 76.3 fL (80-100); Monocytes Absolute Auto 2700 /uL (0-900); Monocytes Percent Auto 20.8 % (3-14); Neutrophils Absolute Auto 6300 /uL (1500-7000); Neutrophils Percent Auto 48.9 % (50-75); Red Blood Cell Count 2.94 X10^6/uL (4.5-5.9); Red Cell Distribution Width 19.2 % (11.6-14.8); White Blood Cell Count 12.8 X10^3/uL (4.5-11.0)
[2024-03-06 09:45] LABS: Platelet Count 29 X10^3/uL (150-400)
[2024-03-06 09:46] LABS: Platelet Estimate Decreased on smear
[2024-03-06 09:47] LABS: Basophils Percent Auto 18.9 % (0-2)
== END ==
PROVIDERS: PCP Internal Medicine; Referring Provider Internal Medicine Hematology & Oncology; Visit Provider Internal Medicine Hematology & Oncology
DX: D75.81 Myelofibrosis (principal); Z15.89 Genetic susceptibility to other disease
CPT/HCPCS: 36415; 85025

== ENCOUNTER → 2024-03-13 07:00 | Outpatient (CLI) | payer MEDICARE, OTHER, SELFPAY ==
[2024-03-13 08:48] LABS: Hematocrit 24.5 % (41-53); Hemoglobin 8.2 g/dL (13.5-17.5); Mean Corpuscular HGB Conc 33.3 % (30-36); Mean Corpuscular Volume 78.2 fL (80-100); Red Blood Cell Count 3.14 X10^6/uL (4.5-5.9); Red Cell Distribution Width 19.5 % (11.6-14.8); White Blood Cell Count 14.3 X10^3/uL (4.5-11.0)
[2024-03-13 09:29] LABS: Add Manual Diff / Slide Review YES; Platelet Count 25 X10^3/uL (150-400)
[2024-03-13 09:31] LABS: Neutrophils Absolute Manual 5005 /uL (3000-5900); Total Cells Counted 100
[2024-03-13 09:32] LABS: Anisocytosis 1+; Microcytosis 1+; Platelet Estimate Decreased on smear; Tear Drop Cells 1+
== END ==
PROVIDERS: PCP Internal Medicine; Referring Provider Internal Medicine Hematology & Oncology; Visit Provider Internal Medicine Hematology & Oncology
DX: D61.89 Other specified aplastic anemias and other bone marrow failure syndromes (principal)
CPT/HCPCS: 36415; 85007; 85025

== ENCOUNTER → 2024-03-20 06:57 | Outpatient (CLI) | payer MEDICARE, OTHER, SELFPAY ==
[2024-03-20 08:42] LABS: Hematocrit 23.2 % (41-53); Hemoglobin 7.8 g/dL (13.5-17.5); Mean Corpuscular HGB Conc 33.5 % (30-36); Mean Corpuscular Hemoglobin 25.9 PG (26-34); Mean Corpuscular Volume 77.4 fL (80-100); Red Cell Distribution Width 19.6 % (11.6-14.8); White Blood Cell Count 18.2 X10^3/uL (4.5-11.0)
[2024-03-20 08:58] LABS: Platelet Count 33 X10^3/uL (150-400)
[2024-03-20 08:59] LABS: Add Manual Diff / Slide Review YES
[2024-03-20 09:04] LABS: Anisocytosis 1+; Neutrophils Absolute Manual 6370 /uL (3000-5900); Poikilocytosis 1+; Total Cells Counted 100
== END ==
PROVIDERS: PCP Internal Medicine; Referring Provider Internal Medicine Hematology & Oncology; Visit Provider Internal Medicine Hematology & Oncology
DX: D61.89 Other specified aplastic anemias and other bone marrow failure syndromes (principal)
CPT/HCPCS: 36415; 85007; 85025

== ENCOUNTER → 2024-03-25 06:58 | Outpatient (CLI) | payer MEDICARE, OTHER, SELFPAY ==
[2024-03-25 07:59] LABS: Hematocrit 23.3 % (41-53); Hemoglobin 7.7 g/dL (13.5-17.5); Mean Corpuscular HGB Conc 33.2 % (30-36); Mean Corpuscular Hemoglobin 25.9 PG (26-34); Red Blood Cell Count 2.99 X10^6/uL (4.5-5.9); Red Cell Distribution Width 19.5 % (11.6-14.8); White Blood Cell Count 15.5 X10^3/uL (4.5-11.0)
[2024-03-25 09:35] LABS: Add Manual Diff / Slide Review YES; Platelet Count 33 X10^3/uL (150-400)
[2024-03-25 09:38] LABS: Neutrophils Absolute Manual 6665 /uL (3000-5900); Total Cells Counted 100
[2024-03-25 09:39] LABS: Anisocytosis 1+; Platelet Estimate Decreased on smear; Poikilocytosis 1+
== END ==
PROVIDERS: PCP Internal Medicine; Referring Provider Internal Medicine Hematology & Oncology; Visit Provider Internal Medicine Hematology & Oncology
DX: D61.89 Other specified aplastic anemias and other bone marrow failure syndromes (principal)
CPT/HCPCS: 36415; 85007; 85025

== ENCOUNTER → 2024-04-03 06:59 | Outpatient (CLI) | payer MEDICARE, OTHER, SELFPAY ==
[2024-04-03 08:06] LABS: Hematocrit 25.4 % (41-53); Hemoglobin 8.5 g/dL (13.5-17.5); Mean Corpuscular HGB Conc 33.5 % (30-36); Mean Corpuscular Hemoglobin 26.5 PG (26-34); Mean Corpuscular Volume 79.3 fL (80-100); Red Cell Distribution Width 20.5 % (11.6-14.8); White Blood Cell Count 17.6 X10^3/uL (4.5-11.0)
[2024-04-03 08:24] LABS: Add Manual Diff / Slide Review YES; Platelet Count 31 X10^3/uL (150-400)
[2024-04-03 08:27] LABS: Neutrophils Absolute Manual 5632 /uL (3000-5900); Platelet Estimate Decreased on smear; RBC Morphology Normal Morphology; Total Cells Counted 100
== END ==
PROVIDERS: PCP Internal Medicine; Referring Provider Internal Medicine Hematology & Oncology; Visit Provider Internal Medicine Hematology & Oncology
DX: D61.89 Other specified aplastic anemias and other bone marrow failure syndromes (principal)
CPT/HCPCS: 36415; 85007; 85025

== ENCOUNTER → 2024-04-10 06:59 | Outpatient (CLI) | payer MEDICARE, OTHER, SELFPAY ==
[2024-04-10 08:40] LABS: Hematocrit 25.1 % (41-53); Hemoglobin 8.3 g/dL (13.5-17.5); Mean Corpuscular HGB Conc 33.2 % (30-36); Mean Corpuscular Hemoglobin 26.6 PG (26-34); Red Blood Cell Count 3.13 X10^6/uL (4.5-5.9); White Blood Cell Count 17.5 X10^3/uL (4.5-11.0)
[2024-04-10 09:09] LABS: Add Manual Diff / Slide Review YES; Platelet Count 28 X10^3/uL (150-400)
[2024-04-10 09:11] LABS: Neutrophils Absolute Manual 7000 /uL (3000-5900); Total Cells Counted 100
[2024-04-10 09:12] LABS: Anisocytosis 2+; Tear Drop Cells 1+
[2024-04-10 09:13] LABS: Platelet Estimate Decreased on smear
== END ==
PROVIDERS: PCP Internal Medicine; Referring Provider Internal Medicine Hematology & Oncology; Visit Provider Internal Medicine Hematology & Oncology
DX: D61.89 Other specified aplastic anemias and other bone marrow failure syndromes (principal)
CPT/HCPCS: 36415; 85007; 85025

== ENCOUNTER → 2024-04-16 07:09 | Outpatient (CLI) | payer MEDICARE, OTHER, SELFPAY ==
[2024-04-16 08:13] LABS: Alanine Aminotransferase 16 IU/L (<50); Albumin Globulin Ratio 1.1 (1.0-2.8); Alkaline Phosphatase 131 U/L (38-126); Aspartate Aminotransferase 24 IU/L (17-59); Bilirubin Total 1.1 mg/dL (0.2-1.3); Blood Urea Nitrogen 25 mg/dL (9-20); Carbon Dioxide 24 mmol/L (22-32); Chloride 105 mmol/L (98-107); Estimated Glomerular Filt Rate 46 mL/min (>60); Globulin 3.6 g/dL (1.7-4.1); Glucose 92 mg/dL (80-110); HEMOLYSIS < 15 (0-50); Potassium 5.2 mmol/L (3.4-5.1); Sodium 136 mmol/L (137-145); Total Protein 7.6 g/dL (6.3-8.2)
== END ==
PROVIDERS: PCP Internal Medicine; Referring Provider Internal Medicine Hematology & Oncology; Visit Provider Internal Medicine Hematology & Oncology
DX: Z15.89 Genetic susceptibility to other disease (principal)
CPT/HCPCS: 36415; 80053

== ENCOUNTER → 2024-04-18 07:03 | Outpatient (CLI) | payer MEDICARE, OTHER, SELFPAY ==
[2024-04-18 08:11] LABS: Hematocrit 24.9 % (41-53); Hemoglobin 8.4 g/dL (13.5-17.5); Mean Corpuscular HGB Conc 33.8 % (30-36); Mean Corpuscular Hemoglobin 26.7 PG (26-34); Mean Corpuscular Volume 79.1 fL (80-100); Red Blood Cell Count 3.14 X10^6/uL (4.5-5.9); Red Cell Distribution Width 20.4 % (11.6-14.8); White Blood Cell Count 18.7 X10^3/uL (4.5-11.0)
[2024-04-18 09:56] LABS: Add Manual Diff / Slide Review YES; Platelet Count 18 X10^3/uL (150-400)
[2024-04-18 09:59] LABS: Anisocytosis 1+; Neutrophils Absolute Manual 5984 /uL (3000-5900); Nucleated Red Blood Cells 1 #/Diff; Platelet Estimate Decreased on smear; Poikilocytosis 1+; Total Cells Counted 100
== END ==
PROVIDERS: PCP Internal Medicine; Referring Provider Internal Medicine Hematology & Oncology; Visit Provider Internal Medicine Hematology & Oncology
DX: Z15.89 Genetic susceptibility to other disease (principal)
CPT/HCPCS: 36415; 85007; 85025

== ENCOUNTER → 2024-07-02 07:07 | Outpatient (CLI) | payer MEDICARE, OTHER, SELFPAY ==
--- NOTE | 2024-07-02 07:09 | DI.CT.S_ITS ---
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 Coronal and sagittal reformats were performed. For radiation dose reduction, the following was used: automated exposure control, adjustment of mA and/or kV according to patient size. COMPARISON: [facility], CT, CT ABDOMEN PELVIS WO CON, 08/02/2023, 7:06. FINDINGS: Image quality: Diagnostic. Lower Chest: No significant findings. Evaluation of the visceral organs is limited due to the lack of intravenous contrast. URINARY: Right Kidney: No stones or hydronephrosis. Right Ureter: No hydroureter. Left Kidney: No stones or hydronephrosis. Left Ureter: No hydroureter. Bladder: Normal wall thickness. No stones. ABDOMEN: Liver: No contour-deforming solid mass. Gallbladder: No radiopaque gallstones or wall thickening. Biliary ducts: No biliary dilation. Pancreas: No ductal dilation. Spleen: Marked splenomegaly measuring 19.2 x 11.7 x 25 cm (APXMLxCC) (01/16, ), previously 17.8 x 10.7 x 22.8 cm (remeasured, , 03/15). Adrenal Glands: No adrenal nodules. Stomach and Bowel: Normal colonic caliber, without significant wall thickening. Colonic diverticulosis, without diverticulitis. Peritoneum: No abnormal intraperitoneal fluid. No free air. Ventral Wall: No hernia. Abdominal Nodes: No enlarged retroperitoneal or mesenteric lymph nodes. Vessels: Aorta and inferior vena cava are normal in size. Mild to moderate calcification of the abdominal aorta and iliac vasculature. PELVIS: Pelvic Organs: Unremarkable. Pelvic Nodes: Unremarkable. Miscellaneous: Moderate right inguinal hernia containing fat and a loop of nondistended small bowel, stable. Bones: No acute fractures. No aggressive appearing lytic or blastic lesions. IMPRESSION: Evaluation of the visceral organs is limited due to the lack of intravenous contrast. 1. Marked splenomegaly measuring 19.2 x 11.7 x 25 cm which is slightly increased compared to prior CT dated August 02, 2023 where it measured 17.8 x 10.7 x 22.8 cm (remeasured). 2. No lymphadenopathy by size criteria. Dictated by: Mitzi Lancaster M.D. on 07/03/2024 at 14:35 Approved by: Mitzi Lancaster M.D. on 07/03/2024 at 17:24
== END ==
LOC: CT 07:09
PROVIDERS: PCP Internal Medicine; Referring Provider Internal Medicine Hematology & Oncology; Visit Provider Internal Medicine Hematology & Oncology
DX: D45 Polycythemia vera (principal); K57.90 Diverticulosis of intestine, part unspecified, without perforation or abscess without bleeding; D75.81 Myelofibrosis; K40.90 Unilateral inguinal hernia, without obstruction or gangrene, not specified as recurrent; R16.1 Splenomegaly, not elsewhere classified; Z15.89 Genetic susceptibility to other disease; I70.0 Atherosclerosis of aorta
CPT/HCPCS: 74176